=== PATIENT | female | born 1965 | race Caucasian/White ===

== ENCOUNTER 2017-08-09 21:15 | Emergency (ER) | payer MEDICARE, MEDICAID, SELFPAY ==
[2017-08-09 21:16] VITALS: BP 159/94; PULSE 82; RESP 20; TEMP 36.3; O2SAT 98; BMI 35.9
--- NOTE | 2017-08-09 21:27 | XR_ITS ---
XR chest 2V HISTORY: ITS.REASON: CHEST PAIN ORDERING PHYSICIAN: Tio Marcano MD PATIENT AGE: 51 years COMPARISON: 05/09/2017 FINDINGS: There is cardiomegaly with mild pulmonary venous congestion along with small bilateral pleural effusions consistent with mild CHF. There are atelectatic changes in the left lung base. Overlying monitoring artifact noted. No lobar consolidation or collapse. No acute bony anomalies. IMPRESSION: 1. CHF with small bilateral pleural effusions. 2. Mild left basilar atelectasis.
--- NOTE | 2017-08-09 21:56 | HMH.EDCP ---
ED Disposition Clinical Impression: Chest pain Qualifiers: Chest pain type: precordial pain Qualified Code(s): R07.2 - Precordial pain CHF (congestive heart failure) Qualifiers: Congestive heart failure type: unspecified Congestive heart failure chronicity: acute on chronic Qualified Code(s): I50.9 - Heart failure, unspecified Disposition: Home, Self-Care Condition on Discharge: Good Instructions: Heart Failure Additional Instructions: see card at 0900 Referrals: Chuck Morgan [Primary Care Provider] - - Critical Care Critical Care Time: No Attestation: On 08/09/17, the high probability of a clinically significant, sudden or life threatening deterioration of the following system(s) required my full and direct attention, intervention and personal management. The time I documented below is in addition to time spent performing reported procedures but includes the following listed in this critical care notation. Medical Decision Making - Medical Records Medical records reviewed: Yes: I reviewed the patient's medical records. Vital Signs: 08/09/17 21:16 08/09/17 22:41 Temperature 97.4 F L Temperature Source Oral Pulse Rate [Right Brachial] 82 79 Respiratory Rate 20 20 Blood Pressure [Right Arm] 159/94 158/66 Blood Pressure Mean [Right Arm] 115 96 Blood Pressure Source [Right Arm] Automatic Cuff Automatic Cuff Blood Pressure Position [Right Arm] Supine Supine 02 Sat by Pulse Oximetry 98 97 Oxygen Delivery Method Nasal Cannula Room Air - Lab Data Lab results reviewed: Yes: I reviewed the patient's lab results. Lab Results 08/09/17 21:55: WBC 9.0, RBC 4.36, Hgb 12.8, Hct 39.5, MCV 90.5, MCH 29.3, MCHC 32.4, RDW 13.2, Plt Count 305, MPV 8.1, Neut % (Auto) 61.5, Lymph % (Auto) 29.8, [place] % (Auto) 5.9, Eos % (Auto) 2.3, Baso % (Auto) 0.4, Neut # (Auto) 5.5, Lymph # (Auto) 2.7, [place] # (Auto) 0.5, Eos # (Auto) 0.2, Baso # (Auto) 0.0 08/09/17 21:55: Sodium 144, Potassium 3.5, Chloride 108 H, Carbon Dioxide 29, Anion Gap 10.5, BUN 9, Creatinine 0.88, Estimated Creat Clear 119, Estimated GFR 67, Est GFR ( Amer) 82, Glucose 141 H, Calcium 8.2 L, Total Bilirubin 0.2, AST 29, ALT 37, Alkaline Phosphatase 120 H, Total Creatine Kinase 74, CK-MB (CK-2) < 0.5, CK-MB (CK-2) Rel Index 0.7, Troponin I < 0.02, Total Protein 7.1, Albumin 2.9 L, Globulin 4.2 H, Albumin/Globulin Ratio 0.7 L 08/09/17 22:05: Urine Color Yellow, Urine Appearance Clear, Urine pH 6.0, Ur Specific [place] 1.015, Urine Protein Negative, Urine Glucose (UA) Negative, Urine Ketones Negative, Urine Blood Trace-i, Urine Nitrate Negative, Urine Bilirubin Negative, Urine Urobilinogen 0.2, Ur Leukocyte Esterase 1+ A, Urine RBC Occasional, Urine WBC 10-20, Ur Squamous Epith Cells 20-50, Ur Transition Epith Cell Occ, Urine Bacteria 2+ Result diagrams: 08/09/17 21:55 08/09/17 21:55 Orders (Tests/Meds): ED MEDICATIONS Discontinued Medications Generic Name Dose Route Start Last Admin Trade Name Freq PRN Reason Stop Dose Admin Aspirin 324 mg 08/09/17 21:35 08/09/17 21:45 Aspirin 81mg Chewable Tablet PO 08/09/17 21:36 324 mg ONCE ONE Administration ORDERS Category Date Time Status XR chest 2V Stat Exams 08/09/17 21:27 Taken BNP [B-Type Natriuretic Peptide] Stat Lab 08/09/17 21:55 Received Urine Culture Stat Micro 08/09/17 22:05 Received ECG Request by /Rosio Stat Y 08/09/17 21:27 Ordered - Radiology Data #1 Image Reviewed: Yes I reviewed the patient's radiology image Preliminary Findings: Abnormal (mild chf) - ECG Data Tracing #1 I reviewed this ECG and interpreted as documented below: Conduction abnormalities present: LBBB - Physician Consults Physician Consulted: aubree Reason -: Pt condition - Christophe Inquiry Pt receiving controlled substance: No Chest Pain HPI - General Chief Complaint: Chest Pain Stated Complaint: CHEST PAIN Time Seen by Provider: 08/09/17 21:57 Mode of Arrival: Amb
--- NOTE | 2017-08-09 22:00 | ED_ITS ---
ED Disposition Clinical Impression: Chest pain Qualifiers: Chest pain type: precordial pain Qualified Code(s): R07.2 - Precordial pain CHF (congestive heart failure) Qualifiers: Congestive heart failure type: unspecified Congestive heart failure chronicity : acute on chronic Qualified Code(s): I50.9 - Heart failure, unspecified Disposition: Home, Self-Care Condition on Discharge: Good Instructions: Heart Failure Additional Instructions: see card at 0900 Referrals: Chuck Morgan [Primary Care Provider] - - Critical Care Critical Care Time: No Attestation: On 08/09/17, the high probability of a clinically significant, sudden or life threatening deterioration of the following system(s) required my full and direct attention, intervention and personal management. The time I documented below is in addition to time spent performing reported procedures but includes the following listed in this critical care notation. Medical Decision Making - Medical Records Medical records reviewed: Yes: I reviewed the patient's medical records. Vital Signs: 08/09/17 21:16 08/09/17 22:41 Temperature 97.4 F L Temperature Source Oral Pulse Rate [Right Brachial] 82 79 Respiratory Rate 20 20 Blood Pressure [Right Arm] 159/94 158/66 Blood Pressure Mean [Right Arm] 115 96 Blood Pressure Source [Right Arm] Automatic Cuff Automatic Cuff Blood Pressure Position [Right Arm] Supine Supine 02 Sat by Pulse Oximetry 98 97 Oxygen Delivery Method Nasal Cannula Room Air - Lab Data Lab results reviewed: Yes: I reviewed the patient's lab results. Lab Results 08/09/17 21:55: WBC 9.0, RBC 4.36, Hgb 12.8, Hct 39.5, MCV 90.5, MCH 29.3, MCHC 32.4, RDW 13.2, Plt Count 305, MPV 8.1, Neut % (Auto) 61.5, Lymph % (Auto) 29.8 , [place] % (Auto) 5.9, Eos % (Auto) 2.3, Baso % (Auto) 0.4, Neut # (Auto) 5.5, Lymph # (Auto) 2.7, [place] # (Auto) 0.5, Eos # (Auto) 0.2, Baso # (Auto) 0.0 08/09/17 21:55: Sodium 144, Potassium 3.5, Chloride 108 H, Carbon Dioxide 29, Anion Gap 10.5, BUN 9, Creatinine 0.88, Estimated Creat Clear 119, Estimated GFR 67, Est GFR ( Amer) 82, Glucose 141 H, Calcium 8.2 L, Total Bilirubin 0.2, AST 29, ALT 37, Alkaline Phosphatase 120 H, Total Creatine Kinase 74, CK-MB (CK-2) < 0.5, CK-MB (CK-2) Rel Index 0.7, Troponin I < 0.02, Total Protein 7.1, Albumin 2.9 L, Globulin 4.2 H, Albumin/Globulin Ratio 0.7 L 08/09/17 22:05: Urine Color Yellow, Urine Appearance Clear, Urine pH 6.0, Ur Specific [place] 1.015, Urine Protein Negative, Urine Glucose (UA) Negative, Urine Ketones Negative, Urine Blood Trace-i, Urine Nitrate Negative, Urine Bilirubin Negative, Urine Urobilinogen 0.2, Ur Leukocyte Esterase 1+ A, Urine RBC Occasional, Urine WBC 10-20, Ur Squamous Epith Cells 20-50, Ur Transition Epith Cell Occ, Urine Bacteria 2+ Result diagrams: 08/09/17 21:55 08/09/17 21:55 Orders (Tests/Meds): ED MEDICATIONS Discontinued Medications Generic Name Dose Route Start Last Admin Trade Name Freq PRN Reason Stop Dose Admin Aspirin 324 mg 08/09/17 21:35 08/09/17 21:45 Aspirin 81mg Chewable Tablet PO 08/09/17 21:36 324 mg ONCE ONE Administration ORDERS Category Date Time Status XR chest 2V Stat Exams 08/09/17 21:27 Taken BNP [B-Type Natriuretic Peptide] Stat Lab 08/09/17 21:55 Received Urine Culture Stat Micro 08/09/17 22:05 Received ECG Request by /Rosio Stat
[2017-08-09 22:10] LABS: Basophils % 0.4 % (0.1-2.0); Eosinophils # 0.2 K/mm3 (0.0-0.4); Eosinophils % 2.3 % (0.1-12.0); Hematocrit 39.5 % (37.0-47.0); Hemoglobin 12.8 g/dL (12.2-16.2); Lymphocytes # 2.7 K/mm3 (0.7-4.5); Lymphocytes % 29.8 K/mm3 (10-50); Mean Corpuscular HGB Conc 32.4 g/dL (31.8-35.4); Mean Corpuscular Hemoglobin 29.3 pg (27.0-31.2); Mean Corpuscular Volume 90.5 fl (81-99); Mean Platelet Volume 8.1 fl (7.4-10.4); Monocytes # 0.5 K/mm3 (0.1-1.0); Monocytes % 5.9 % (1.7-9.3); Neutrophils # 5.5 K/mm3 (1.8-7.8); Neutrophils % 61.5 % (37.0-80.0); Platelet Count 305 K/mm3 (142-424); Red Blood Count 4.36 M/mm3 (4.20-5.40); Red Cell Distribution Width 13.2 % (11.5-17.5)
[2017-08-09 22:14] LABS: Microscopic, Urine URINE MICROSCOPIC (MICROSCOPIC)
[2017-08-09 22:16] LABS: Appearance,Urine CLEAR (Clear); Bilirubin,Urine Negative (Negative); Blood, Urine TRACE-I (Negative); Color,Urine YELLOW (Yellow); Glucose,Urine (UA) Negative (Negative); Ketones,Urine Negative (Negative); Leukocyte Esterase,Urine 1+ (Negative); Nitrate,Urine Negative (Negative); Protein,Urine Negative (Negative); Specific Gravity, Urine 1.015 (1.005-1.030); Urobilinogen,Urine 0.2 EU/dl (0.2)
[2017-08-09 22:30] LABS: Bacteria,Urine 2+ /lpf; RBC,Urine Occasional #/hpf (0-3); Squamous Epithelial Cell,Urine 20-50 #/hpf (0-5); Transitional Epi Cells,Urine OCC #/lpf (0-3)
[2017-08-09 22:37] LABS: Alanine Aminotransferase 37 U/L (12-78); Albumin Level 2.9 gm/dL (3.4-5.0); Albumin/Globulin Ratio 0.7 (1.1-1.8); Alkaline Phosphatase 120 U/L (46-116); Anion Gap 10.5 mEq/L (5-15); Aspartate Amino Transferase 29 U/L (15-37); Bilirubin,Total 0.2 mg/dL (0.2-1.0); Blood Urea Nitrogen 9 mg/dL (7-18); Calcium 8.2 mg/dL (8.5-10.1); Carbon Dioxide 29 mmol/L (21.0-32.0); Chloride 108 mmol/L (98-107); Creatine Kinase 74 U/L (26-192); Creatinine Clearance Estimated 119 mL/min (0-300); Creatinine,Serum 0.88 mg/dL (0.55-1.02); Estimated Glomerular Filt Rate 67 ml/min (>60); GFR (African American) 82 ML/MIN (>60); Globulin 4.2 gm/dl (1.3-3.2); Glucose 141 mg/dL (74-106); Potassium 3.5 mmoL/L (3.5-5.1); Sodium 144 mmol/L (136-145); Total Protein,Serum 7.1 gm/dL (6.4-8.2); Troponin I < 0.02 ng/ml (0.00-0.06)
[2017-08-09 22:41] VITALS: BP 158/66; PULSE 79; RESP 20; O2SAT 97
[2017-08-09 22:52] LABS: CKMB Relative Index 0.7 U/L (0-4.0); Creatine Kinase MB < 0.5 mg/ml (0.0-3.6)
[2017-08-09 23:12] VITALS: BP 152/62; PULSE 90; RESP 14; O2SAT 97
== END 2017-08-09 23:14 | disposition home or self-care (01) ==
PROVIDERS: Emergency Provider Emergency Medicine; PCP Pediatrics
DX: R07.2 Precordial pain (principal); R06.02 Shortness of breath; I50.9 Heart failure, unspecified; Z79.82 Long term (current) use of aspirin; Z87.891 Personal history of nicotine dependence; R82.90 Unspecified abnormal findings in urine
CPT/HCPCS: 71046; 80053; 81001; 82550; 82553; 83880; 84484; 85025; 87086; 93041; 99284

== ENCOUNTER → 2017-08-18 07:22 | Outpatient (CLI) | payer MEDICARE, MEDICAID, SELFPAY ==
--- NOTE | 2017-08-18 07:29 | CA_ITS ---
PROCEDURE: 2-D M-mode and color Doppler study INDICATIONS FOR THE TEST: Chest pain+ COPD+ Heart Murmur Tobacco Smokingex Palpitations+ Fatigue+ Syncope Edema+ Hypertension+Diabetes Mellitus Rheumatic Fever SOB+WHITLOCK Obesity+Hyperlipidemia Family History HD Additional History dizziness, hx of 20-25% ef, wearing life vest currently PATIENT INFORMATION HEIGHT: 66 WEIGHT: 225 GENDER: Female B/P: 151/98 2-D/M-MODE INTERPRETATION: 2-D MEASUREMENTS OBSERVED VALUES IN CMS Right Ventricular Dimension (RVDd) 1.3 Interventricular Septum (Thickness)(IVsd) 1.1 Left Ventricular Internal Dimensions(LVIDd) 6.7 Left Ventricular Posterior Wall (Thickness)(LVPWd) 1.2 Aortic Root 3.4 Aortic Cusp Separation 2.1 Left Atrial Dimensions (LAD) 4.4 2D 1. Left atrium is mildly enlarged, left ventricle is mildly dilated, there is mild concentric left ventricular hypertrophy present, visually estimated ejection fraction of 20%, left ventricle is globally hypokinetic, superimposed segmental wall motion abnormalities cannot be entirely excluded. 2. The right atrium and right ventricle are normal size and contractility. 3. The aortic valve is minimally thickened and fibrosed. 4. The mitral and tricuspid valve leaflets are minimally thickened. 5. The pulmonic valve is poorly visualized. 6. No significant pericardial effusion noted. DOPPLER INTERROGATION: Doppler interrogation of the aortic, mitral and tricuspid valvular presence of moderate mitral and tricuspid regurgitation, calculated right ventricular systolic pressure is 35 mmHg, diastolic parameters are inconclusive. CONCLUSION: 1. Mildly enlarged left atrium, dilated left ventricle, mild concentric left ventricular hypertrophy, visually estimated ejection fraction 30%, left ventricle is globally hypokinetic, superimposed segmental wall motion abnormalities cannot be entirely excluded. 2. Moderate mitral and tricuspid regurgitation, calculated right ventricular systolic pressure is 35 mmHg. 3. No significant pericardial effusion noted.
== END ==
PROVIDERS: PCP Pediatrics; Visit Provider Internal Medicine
DX: R00.0 Tachycardia, unspecified (principal); R07.9 Chest pain, unspecified
CPT/HCPCS: 93306

== ENCOUNTER 2017-08-21 12:35 | Emergency (ER) | payer MEDICARE, MEDICAID, SELFPAY ==
[2017-08-21 12:36] VITALS: BP 136/80; BP 146/71; PULSE 73; PULSE 80; RESP 16; RESP 18; TEMP 36.8; O2SAT 95; O2SAT 97; BMI 36.3
--- NOTE | 2017-08-21 12:43 | XR_ITS ---
XR chest 2V Ordering Physician: Sheba Jay MD Patient Age: 51 years: Female HISTORY: ITS.REASON: CP and c/o Wheezing Chest pain. Wheezing. COMPARISON : Previous chest film 05/09/2017 TECHNIQUE. PALateral chest. & Findings The patient has external device posteriorly overlying the back which is projected over the chest on the frontal projection today. The device was not removed & yields artifact which limits the study. However I see no definitive focal area of pneumonia or consolidation. Minor coarsening of central markings noted but considering technique and overlying densities this appears similar to previous study from April 2017, with nothing definitely acute otherwise.. . Lateral chest film shows no significant new features Heart is upper normal in size with kitty and stable satisfactory mediastinal structures unchanged. No pleural effusion nor pneumothorax. Again noted old right rib fractures IMPRESSION: ------- Chronic changes with nothing definitely acute Slight Limited CXR due to overlapping structures, but No focal consolidation or pneumonia. Central markings upper normal prominence could reflect mild additionalcentral airway inflammatory changes.
--- NOTE | 2017-08-21 12:43 | HMH.EDCP ---
ED Disposition Clinical Impression: Atypical chest pain Chest pain Qualifiers: Chest pain type: unspecified Qualified Code(s): R07.9 - Chest pain, unspecified CHF (congestive heart failure) Qualifiers: Congestive heart failure type: systolic Congestive heart failure chronicity: acute on chronic Qualified Code(s): I50.23 - Acute on chronic systolic (congestive) heart failure Disposition: Home, Self-Care Condition on Discharge: Fair Instructions: Heart Failure, DI for Atypical Chest Pain Additional Instructions: Keep appointment tomorrow with Dr. Luna to discuss implantation of AICD Referrals: Chuck Morgan [Primary Care Provider] - Time of Disposition: 15:20 - Critical Care Critical Care Time: No Attestation: On , the high probability of a clinically significant, sudden or life threatening deterioration of the following system(s) required my full and direct attention, intervention and personal management. The time I documented below is in addition to time spent performing reported procedures but includes the following listed in this critical care notation. Medical Decision Making - Medical Records Medical records reviewed: Yes: I reviewed the patient's medical records. Vital Signs: 08/21/17 12:36 08/21/17 13:08 08/21/17 13:30 Temperature 98.2 F Temperature Source Oral Pulse Rate [Left Brachial] 80 80 80 Respiratory Rate 16 16 16 Blood Pressure [Left Arm] 146/71 146/71 146/71 Blood Pressure Mean [Left Arm] 96 96 96 Blood Pressure Source [Left Arm] Automatic Cuff Automatic Cuff Blood Pressure Position [Left Arm] Sitting Sitting 02 Sat by Pulse Oximetry 95 95 95 Oxygen Delivery Method Room Air 08/21/17 14:00 08/21/17 14:30 Temperature Temperature Source Pulse Rate [Left Brachial] 77 65 Respiratory Rate 16 16 Blood Pressure [Left Arm] 150/85 124/75 Blood Pressure Mean [Left Arm] 106 91 Blood Pressure Source [Left Arm] Blood Pressure Position [Left Arm] 02 Sat by Pulse Oximetry 97 96 Oxygen Delivery Method - Lab Data Lab results reviewed: Yes: I reviewed the patient's lab results. Lab Results 08/21/17 12:35: WBC 6.1, RBC 4.92, Hgb 14.4, Hct 44.1, MCV 89.6, MCH 29.2, MCHC 32.6, RDW 13.4, Plt Count 296, MPV 7.8, Neut % (Auto) 47.7, Lymph % (Auto) 40.8, [place] % (Auto) 8.8, Eos % (Auto) 2.0, Baso % (Auto) 0.7, Neut # (Auto) 2.9, Lymph # (Auto) 2.5, [place] # (Auto) 0.5, Eos # (Auto) 0.1, Baso # (Auto) 0.0 08/21/17 12:35: Sodium 140, Potassium 4.0, Chloride 106, Carbon Dioxide 28, Anion Gap 10.0, BUN 9, Creatinine 0.92, Estimated Creat Clear 115, Estimated GFR 64, Est GFR ( Amer) 78, Glucose 115 H, Calcium 8.1 L, Total Bilirubin 0.5, AST 28, ALT 32, Alkaline Phosphatase 110, Total Creatine Kinase 57, CK-MB (CK-2) < 0.5, CK-MB (CK-2) Rel Index 0.9, Troponin I < 0.02, Total Protein 7.7, Albumin 3.2 L, Globulin 4.5 H, Albumin/Globulin Ratio 0.7 L Result diagrams: 08/21/17 12:35 08/21/17 12:35 Orders (Tests/Meds): ED MEDICATIONS Discontinued Medications Generic Name Dose Route Start Last Admin Trade Name Freq PRN Reason Stop Dose Admin Aspirin 324 mg 08/21/17 12:43 08/21/17 12:56 Aspirin 81mg Chewable Tablet PO 08/21/17 12:44 324 mg ONCE ONE Administration ORDERS Category Date Time Status XR chest 2V Stat Exams 08/21/17 12:43 Taken - Radiology Data #1 Image(s): Chest Image Reviewed: Yes I reviewed the patient's radiology image Cardiomegaly with mild upper lobe vascularity - ECG Data Tracing #1 NSR with LAD and ? lateral ischemia but no acute changes Arrhythmias present: other (NSR) Ischemic changes: poor r wave progression Chamber hypertrophy present: LVH - Christophe Inquiry Pt receiving controlled substance: No Christophe was queried for this patient: No Chest Pain HPI - General Chief Complaint: Chest Pain Stated Complaint: CP Time Seen by Provider: 08/21/17 12:44 Mode of Arrival: Ambulatory Source [employer]
[2017-08-21 12:57] LABS: Basophils % 0.7 % (0.1-2.0); Eosinophils # 0.1 K/mm3 (0.0-0.4); Hematocrit 44.1 % (37.0-47.0); Hemoglobin 14.4 g/dL (12.2-16.2); Lymphocytes # 2.5 K/mm3 (0.7-4.5); Lymphocytes % 40.8 K/mm3 (10-50); Mean Corpuscular HGB Conc 32.6 g/dL (31.8-35.4); Mean Corpuscular Hemoglobin 29.2 pg (27.0-31.2); Mean Corpuscular Volume 89.6 fl (81-99); Mean Platelet Volume 7.8 fl (7.4-10.4); Monocytes # 0.5 K/mm3 (0.1-1.0); Monocytes % 8.8 % (1.7-9.3); Neutrophils # 2.9 K/mm3 (1.8-7.8); Neutrophils % 47.7 % (37.0-80.0); Platelet Count 296 K/mm3 (142-424); Red Blood Count 4.92 M/mm3 (4.20-5.40); Red Cell Distribution Width 13.4 % (11.5-17.5); White Blood Count 6.1 K/mm3 (4.8-10.8)
[2017-08-21 13:08] VITALS: BP 146/71; PULSE 80; RESP 16; O2SAT 95
[2017-08-21 13:30] VITALS: BP 146/71; PULSE 80; RESP 16; O2SAT 95
--- NOTE | 2017-08-21 13:56 | PC.NURSE ---
UP TO BATHROOM. INDEPENDENTLY AMBULATED
[2017-08-21 14:00] VITALS: BP 150/85; PULSE 77; RESP 16; O2SAT 97
[2017-08-21 14:30] VITALS: BP 124/75; PULSE 65; RESP 16; O2SAT 96
[2017-08-21 14:57] LABS: Alanine Aminotransferase 32 U/L (12-78); Albumin Level 3.2 gm/dL (3.4-5.0); Albumin/Globulin Ratio 0.7 (1.1-1.8); Alkaline Phosphatase 110 U/L (46-116); Aspartate Amino Transferase 28 U/L (15-37); Bilirubin,Total 0.5 mg/dL (0.2-1.0); Blood Urea Nitrogen 9 mg/dL (7-18); CKMB Relative Index 0.9 U/L (0-4.0); Calcium 8.1 mg/dL (8.5-10.1); Carbon Dioxide 28 mmol/L (21.0-32.0); Chloride 106 mmol/L (98-107); Creatine Kinase 57 U/L (26-192); Creatine Kinase MB < 0.5 mg/ml (0.0-3.6); Creatinine Clearance Estimated 115 mL/min (0-300); Creatinine,Serum 0.92 mg/dL (0.55-1.02); Estimated Glomerular Filt Rate 64 ml/min (>60); GFR (African American) 78 ML/MIN (>60); Globulin 4.5 gm/dl (1.3-3.2); Glucose 115 mg/dL (74-106); Sodium 140 mmol/L (136-145); Total Protein,Serum 7.7 gm/dL (6.4-8.2); Troponin I < 0.02 ng/ml (0.00-0.06)
[2017-08-21 16:02] VITALS: BP 165/70; PULSE 80; O2SAT 98
== END 2017-08-21 16:02 | disposition home or self-care (01) ==
PROVIDERS: Emergency Provider General Practice; PCP Pediatrics
DX: R07.89 Other chest pain (principal); I25.10 Atherosclerotic heart disease of native coronary artery without angina pectoris; I11.0 Hypertensive heart disease with heart failure; I50.23 Acute on chronic systolic (congestive) heart failure; Z79.82 Long term (current) use of aspirin; Z79.891 Long term (current) use of opiate analgesic; Z79.899 Other long term (current) drug therapy
CPT/HCPCS: 71046; 80053; 82550; 82553; 84484; 85025; 93005; 93041; 99284

== ENCOUNTER 2017-09-08 08:34 | Day surgery (SDC) | payer MEDICARE, MEDICAID, SELFPAY ==
[2017-09-07 13:34] VITALS: BMI 37.1
[2017-09-08] VITALS (10 sets, daily range): BP systolic 104–138; BP diastolic 58–92; PULSE 58–70; RESP 16–20; TEMP 36.3–37.1; O2SAT 91–99
--- NOTE | 2017-09-08 | XR_ITS ---
XR pacemaker defibrillator CLINICAL INDICATION: Pacemaker insertion ORDERING PHYSICIAN: Chet Luna MD PATIENT AGE: 51 years COMPARISON: None FINDINGS: C-arm was utilized for pacemaker insertion. Fluoroscopy time: 1 minute and 31 seconds. Single image submitted shows the bipolar pacemaker present IMPRESSION: C-arm utilization for pacemaker insertion
--- NOTE | 2017-09-08 10:23 | HMH.ANESCL ---
[facility] Anesthesia Checklist - Patient Identification Patient Identification: Arm Band - Structural Data Admitted From: Home Planned Operative Procedure/s: pacemaker/aicd Consent for Planned Operative Procedure(s) Verified: Yes Verified Documents: Surgical Consent, History and Physical - NPO Status Verified Time NPO: 00:00 - Additional verifications Anesthesia Reactions: No - Airway Assessment C-Spine Mobility Assessed: Yes (mp2) TMJ Mobility Assessed: Yes Dentition: Good Dentition - Neurological Assessment Level of Consciousness: Awake, Alert - Anesthesia Plan Anesthesia Risk discussed: Yes Anesthesia Plan: Verified ASA Class: III Anesthesia Type: MAC [facility] Anesthesia HX I have reviewed the patient's past medical history: Yes Medical History: Reports:: Asthma, Congestive Heart Failure, Chronic Obstructive Pulmonary Disease (COPD), Coronary Artery Disease, Gastroesophageal Reflux Disease(GERD), Hyperlipidemia, Hypertension Denies:: Cancer, Diabetes Mellitus Type 1, Diabetes Mellitus Type 2, Internal Pacemaker, MRSA, Seizures Other Medical History: Denies: Blood Transfusion Reaction Other Surgeries: Yes: , Hysterectomy-Total, Other. No: Pacemaker Amputation: No Fractures: No Comment: vini *Family Hx:: Diabetes, Heart Attack, Hypertension
--- NOTE | 2017-09-08 13:08 | XR_ITS ---
XR chest portable HISTORY: ITS.REASON: AICD placement verification ORDERING PHYSICIAN: Chet Luna MD PATIENT AGE: 51 years COMPARISON: None available FINDINGS: Status post AICD placement from the left subclavian approach. No evidence of pneumothorax. Good position of the pacemaker. Minimal atelectatic or fibrotic changes present in the left lung base. Lungs otherwise clear. IMPRESSION: Status post AICD placement with no evidence of immediate complication
--- NOTE | 2017-10-06 07:55 | HMH.AICD ---
[facility] AICD - AICD Date: 09/08/17 Procedures:: 1. Pocket formation for AICD. 2. Placement of atrial sensing and pacing coil into the right atrial appendage. 3. Placement of a ventricular sensing pacing and shocking coil in the right ventricular apex. 4. Permanent AICD placement Indications for test:: Ischemic Cardiomyopathy with systolic congestive heart failure ejection fraction less than 35% Class III [place] [employer] congestive heart failure Informed consent:: Obtained prior to procedure. EBL:: Less than 10 ml. Technique:: 1% lidocaine with epinephrine used to anesthetize the left anterior aspect of chest. Scalpel was used to make the initial cutaneous incision wall electrocautery was used to dissect down into the fascia. The fascia was lifted off the pectoralis muscle and digitally manipulated creating a pocket for the defibrillator. The patient was then placed in Trendelenburg position and the subclavian vein was accessed via the Seldinger technique. A 7 Jordanian sheath was placed under fluoroscopic guidance into the subclavian vein. Following this, an additional wire was placed into the sheath. Now, with 2 wires inside the 7 Jordanian sheath, this sheath was removed, maintaining the 2 wires in the subclavian vein. This shift and dilator was then placed over 1 of the wires while keeping the other wire in place within the subclavian vein. The dilator was removed from the sheath. Using fluoroscopic guidance, the ventricular lead was placed into the right ventricular apex, screwed and secured into place. Electronic interrogation proved acceptable thresholds and voltage within the lead. Using 3-0 silk, the ventricular lead was then secured into place. Lead was secured to the fascia using the 3-0 silk. Following this, the sheath was peeled away. An additional 7 [place]ian fresh sheath and dilator was placed over the existing wire. Using fluoroscopic guidance, the atrial lead was then placed into the right atrial appendage and screwed and secured in place. Electrical interrogation demonstrated acceptable thresholds and voltage number. The atrial lead was then secured into place using 3-0 silk. 1 g of Ancef was used to flush the pocket. Following the defibrillator being secured to the fascia and in place, Monocryl was used to close subcutaneous layer christen were used to close the cutaneous layer. A pressure dressing was placed and the patient was transferred to the postop holding area in stable condition for postoperative care. Impression:: 1. Successful pocket formation for permanent defibrillator placement. 2. Successful placement of an atrial sensing pacing lead into the right atrial appendage. 3. Successful placement of a ventricular sensing, pacing, and shocking lead in the right ventricular apex. 4. Successful permanent defibrillator placement. Interrogation:: Generator model number [id number] serial number [id number] Atrial lead model number serial number [id number] model number [id number] Right Ventricular lead model number [id number] serial number [id number] RA: P wave 2.8-3.6mV Threshold .75 V Impedance 510 ohms pulse width .5 ms RVA: R wave 11-12mV Threshold .5 V Impedance 680 ohms pulse width .5ms Mode: DDD with base tracking of 60 maximum tracking 110 Therapies: VT-1: 150 Monitor VT-2: 180 ATP X3 @30, 36 J VF: 220 ATP W/C @30, 36 J Plan:: 1.Post-op wound care.
--- NOTE | 2017-10-06 07:59 | P.PCN_ITS ---
[facility] AICD - AICD Date: 09/08/17 Procedures:: 1. Pocket formation for AICD. 2. Placement of atrial sensing and pacing coil into the right atrial appendage. 3. Placement of a ventricular sensing pacing and shocking coil in the right ventricular apex. 4. Permanent AICD placement Indications for test:: Ischemic Cardiomyopathy with systolic congestive heart failure ejection fraction less than 35% Class III [place] [employer] congestive heart failure Informed consent:: Obtained prior to procedure. EBL:: Less than 10 ml. Technique:: 1% lidocaine with epinephrine used to anesthetize the left anterior aspect of chest. Scalpel was used to make the initial cutaneous incision wall electrocautery was used to dissect down into the fascia. The fascia was lifted off the pectoralis muscle and digitally manipulated creating a pocket for the defibrillator. The patient was then placed in Trendelenburg position and the subclavian vein was accessed via the Seldinger technique. A 7 Indonesian sheath was placed under fluoroscopic guidance into the subclavian vein. Following this , an additional wire was placed into the sheath. Now, with 2 wires inside the 7 Indonesian sheath, this sheath was removed, maintaining the 2 wires in the subclavian vein. This shift and dilator was then placed over 1 of the wires while keeping the other wire in place within the subclavian vein. The dilator was removed from the sheath. Using fluoroscopic guidance, the ventricular lead was placed into the right ventricular apex, screwed and secured into place. Electronic interrogation proved acceptable thresholds and voltage within the lead. Using 3-0 silk, the ventricular lead was then secured into place. Lead was secured to the fascia using the 3-0 silk. Following this, the sheath was peeled away. An additional 7 Indonesian fresh sheath and dilator was placed over the existing wire. Using fluoroscopic guidance, the atrial lead was then placed into the right atrial appendage and screwed and secured in place. Electrical interrogation demonstrated acceptable thresholds and voltage number. The atrial lead was then secured into place using 3-0 silk. 1 g of Ancef was used to flush the pocket. Following the defibrillator being secured to the fascia and in place, Monocryl was used to close subcutaneous layer christen were used to close the cutaneous layer. A pressure dressing was placed and the patient was transferred to the postop holding area in stable condition for postoperative care. Impression:: 1. Successful pocket formation for permanent defibrillator placement. 2. Successful placement of an atrial sensing pacing lead into the right atrial appendage. 3. Successful placement of a ventricular sensing, pacing, and shocking lead in the right ventricular apex. 4. Successful permanent defibrillator placement. Interrogation:: Generator model number [id number] serial number [id number] Atrial lead model number serial number [id number] model number [id number] Right Ventricular lead model number [id number] serial number [id number] RA: P wave 2.8-3.6mV Threshold .75 V Impedance 510 ohms pulse width .5 ms RVA: R wave 11-12mV Threshold .5 V Impedance 680 ohms pulse width .5ms Mode: DDD with base tracking of 60 maximum tracking 110 Therapies: VT-1: 150 Monitor VT-2: 180 ATP X3 @30, 36 J VF: 220 ATP W/C @30, 36 J Plan:: 1.Post-op wound care.
== END 2017-09-08 14:27 | disposition home or self-care (01) ==
PROVIDERS: PCP Pediatrics; Visit Provider Internal Medicine
PROC: 0JH608Z Insertion of Defibrillator Generator into Chest Subcutaneous Tissue and Fascia, Open Approach (ICD-10-PCS; CPT 33249; principal; 2017-09-08 10:00)
DX: Z45.02 Encounter for adjustment and management of automatic implantable cardiac defibrillator (principal); I50.20 Unspecified systolic (congestive) heart failure; I25.5 Ischemic cardiomyopathy
CPT/HCPCS: 33249; 71045; 94640; 96374; C1777; C1882; C1898

== ENCOUNTER 2018-01-26 11:28 | Day surgery (SDC) | payer MEDICARE, MEDICAID, SELFPAY ==
[2018-01-26 11:48] VITALS: BMI 37.1
[2018-01-26 12:06] VITALS: BP 100/51; PULSE 75; RESP 16; TEMP 36.2; O2SAT 95
[2018-01-26 12:07] LABS: Basophils % 0.5 % (0.1-2.0); Eosinophils # 0.2 K/mm3 (0.0-0.4); Eosinophils % 2.7 % (0.1-12.0); Hematocrit 41.4 % (37.0-47.0); Hemoglobin 12.9 g/dL (12.2-16.2); Lymphocytes # 2.4 K/mm3 (0.7-4.5); Lymphocytes % 31.2 K/mm3 (10-50); Mean Corpuscular HGB Conc 31.2 g/dL (31.8-35.4); Mean Corpuscular Hemoglobin 28.3 pg (27.0-31.2); Mean Corpuscular Volume 90.9 fl (81-99); Mean Platelet Volume 7.7 fl (7.4-10.4); Monocytes # 0.4 K/mm3 (0.1-1.0); Monocytes % 5.8 % (1.7-9.3); Neutrophils # 4.5 K/mm3 (1.8-7.8); Neutrophils % 59.8 % (37.0-80.0); Platelet Count 286 K/mm3 (142-424); Red Blood Count 4.56 M/mm3 (4.20-5.40); Red Cell Distribution Width 13.5 % (11.5-17.5); White Blood Count 7.5 K/mm3 (4.8-10.8)
[2018-01-26 12:15] LABS: Anion Gap 13.9 mEq/L (5-15); Blood Urea Nitrogen 13 mg/dL (7-18); Calcium 8.1 mg/dL (8.5-10.1); Carbon Dioxide 24 mmol/L (21.0-32.0); Chloride 107 mmol/L (98-107); Creatinine Clearance Estimated 116 mL/min (0-300); Creatinine,Serum 0.92 mg/dL (0.55-1.02); Estimated Glomerular Filt Rate 64 ml/min (>60); GFR (African American) 77 ML/MIN (>60); Glucose 163 mg/dL (74-106); Potassium 3.9 mmoL/L (3.5-5.1); Sodium 141 mmol/L (136-145)
--- NOTE | 2018-01-26 13:57 | HMH.ANESCL ---
[facility] Anesthesia Checklist - Patient Identification Patient Identification: Arm Band, Verbal (Name & ) - Structural Data Admitted From: Home Planned Operative Procedure/s: pacer pocket revision Consent for Planned Operative Procedure(s) Verified: Yes Verified Documents: Surgical Consent, History and Physical - NPO Status Verified Time NPO: 00:00 - Additional verifications Patient : No Anesthesia Reactions: No Hx Blood Transfusions: No Blood Transfusion Reaction: No Cephalosporin Allergy: No Previous Colonoscopy: No - Cardiovascular Assessment Heart Sounds: S1 & S2 Pulse Strength: Baseline Pulse Rhythm: Regular Peripheral Edema: No - Airway Assessment C-Spine Mobility Assessed: Yes TMJ Mobility Assessed: Yes Dentition: Good Dentition - Neurological Assessment Level of Consciousness: Awake, Alert, Appropriate Hx Seizures: No Numbness or tingling in extremities: No - Anesthesia Plan Anesthesia Risk discussed: Yes Anesthesia Plan: Verified ASA Class: III Anesthesia Type: MAC [facility] Anesthesia HX I have reviewed the patient's past medical history: Yes Medical History: Reports:: Asthma, Congestive Heart Failure, Chronic Obstructive Pulmonary Disease (COPD), Coronary Artery Disease, Gastroesophageal Reflux Disease(GERD), Hyperlipidemia, Hypertension, Internal Pacemaker Denies:: Cancer, Diabetes Mellitus Type 1, Diabetes Mellitus Type 2, MRSA, Seizures Other Medical History: Denies: Blood Transfusion Reaction Other Surgeries: Yes: , Hysterectomy-Total, Pacemaker, Other Amputation: No Fractures: No *Family Hx:: Diabetes, Heart Attack, Hypertension
[2018-01-26 15:13] VITALS: BP 99/46; PULSE 66; RESP 20; TEMP 36.2; O2SAT 94
[2018-01-26 15:28] VITALS: BP 101/70; PULSE 65; RESP 18; TEMP 36.2; O2SAT 96
[2018-01-26 15:43] VITALS: BP 103/91; PULSE 73; RESP 18; TEMP 36.2; O2SAT 97
--- NOTE | 2018-08-21 10:24 | HMH.PCTREV ---
Pocket Revision Date:: 01/26/18 Procedures:: r Informed consent:: Obtained prior to procedure. Complications:: None EBL:: Less than 10 ml. Technique:: 1% Lidocaine with epinephrine used to anesthetize the left anterior aspect of the chest.Scalpel was used to make the initial cutaneous incision and then used to dissect down to the pacemaker generator. The generator was removed from the existing pocket. Digital manipulation was required along with intermittent usage of scalpel in order to revise the pocket. Plan:: 1.Post-op wound care.
== END 2018-01-26 15:43 | disposition home or self-care (01) ==
LOC: OR 11:30
PROVIDERS: PCP Pediatrics; Visit Provider Internal Medicine
DX: T82.121A Displacement of cardiac pulse generator (battery), initial encounter (principal); Z45.02 Encounter for adjustment and management of automatic implantable cardiac defibrillator; I50.23 Acute on chronic systolic (congestive) heart failure; I11.0 Hypertensive heart disease with heart failure
CPT/HCPCS: 33215; 80048; 85025; 96374

== ENCOUNTER → 2018-11-05 11:57 | Outpatient (CLI) | payer MEDICARE, MEDICAID, SELFPAY ==
--- NOTE | 2018-11-05 12:02 | CA_ITS ---
PROCEDURE: 2-D M-mode and color Doppler study INDICATIONS FOR THE TEST: Chest pain COPDX Heart Murmur Tobacco Smoking Palpitations Fatigue Syncope Edema HypertensionXXDiabetes Mellitus Rheumatic Fever SOBXDOE ObesityXHyperlipidemia X Family History HD Additional History CM,AICD EF 08/18/17 30% ARRHYTHMIA PATIENT INFORMATION HEIGHT: 66 WEIGHT:242 GENDER: Female B/P:114/66 2-D/M-MODE INTERPRETATION: 2-D MEASUREMENTS OBSERVED VALUES IN CMS Right Ventricular Dimension (RVDd) 1.3 Interventricular Septum (Thickness)(IVsd) 1.1 Left Ventricular Internal Dimensions(LVIDd) 6.8 Left Ventricular Posterior Wall (Thickness)(LVPWd) 1.2 Aortic Root 3.1 Aortic Cusp Separation 1.8 Left Atrial Dimensions (LAD) 3.4 2D 1. Left atrium is mildly enlarged, left ventricle is mildly dilated, there is mild concentric left ventricular hypertrophy, severely reduced left ventricular systolic function, visually estimated ejection fraction is 25%, left ventricle is globally hypokinetic, there is abnormal septal motion. 2. The right atrium and right ventricle are normal size and contractility, there is an AICD lead seen in the right ventricle. 3. The aortic valve is thickened and calcified leaflet continue to display mobility. 4. The mitral and tricuspid valve leaflets are minimally thickened 5. The pulmonic valve is poorly visualized. 6. No significant pericardial effusion noted. DOPPLER INTERROGATION: Doppler interrogation of the aortic, mitral and tricuspid valvular presence of mild mitral and tricuspid regurgitation, tricuspid regurgitation jet velocity is inadequate for calculation of the right ventricular systolic pressure, Doppler evidence of impaired relaxation seen. CONCLUSION: 1. Mildly enlarged left atrium, mildly dilated left ventricle, mild concentric left ventricular hypertrophy, severely reduced left ventricular systolic function, visually estimated ejection fraction 45%, left ventricle is globally hypokinetic, there is abnormal septal motion. Doppler evidence of impaired LV relaxation seen. 2. Mild mitral and tricuspid regurgitation 3. No significant pericardial effusion noted.
== END ==
PROVIDERS: PCP Pediatrics; Visit Provider Internal Medicine
DX: I11.9 Hypertensive heart disease without heart failure (principal); I42.9 Cardiomyopathy, unspecified; I50.9 Heart failure, unspecified; R06.00 Dyspnea, unspecified
CPT/HCPCS: 93306

== ENCOUNTER → 2019-01-07 12:04 | Outpatient (CLI) | payer MEDICARE, MEDICAID, SELFPAY ==
[2019-01-07 13:15] LABS: Anion Gap 14.1 mEq/L (5-15); Blood Urea Nitrogen 14 mg/dL (7-18); Calcium 8.5 mg/dL (8.5-10.1); Carbon Dioxide 29 mmol/L (21.0-32.0); Chloride 104 mmol/L (98-107); Creatinine,Serum 0.94 mg/dL (0.55-1.02); Estimated Glomerular Filt Rate 62 ml/min (>60); GFR (African American) 75 ML/MIN (>60); Glucose 157 mg/dL (74-106); Potassium 4.1 mmoL/L (3.5-5.1); Sodium 143 mmol/L (136-145)
== END ==
PROVIDERS: Visit Provider Internal Medicine
DX: R06.02 Shortness of breath (principal); R06.00 Dyspnea, unspecified; R06.01 Orthopnea
CPT/HCPCS: 36415; 80048; 83880

== ENCOUNTER → 2020-01-07 13:07 | Outpatient (CLI) | payer MEDICARE, MEDICAID, SELFPAY ==
--- NOTE | 2020-01-07 13:14 | CA_ITS ---
APPROVED REPORT EXAM: Comprehensive 2D, Doppler, and color-flow Echocardiogram Hydrology Professor: Caity Haley RVT Ht: 5 ft 6 in Wt: 235lbs BSA: 2.14 BP: 101/59 mmHg Indications: CHF,HTN,HLD,CM,CAD,AICD 2D Dimensions LVOT 2.05 cm (M/F) 1.5-2.5 M-Mode Dimensions LVDd 5.84 cm (3.5-5.7) LVDs 4.43 cm (3.5-5.7) IVSd 1.09 cm (0.6-1.1) PWd 0.60 cm (0.6-1.1) EF (Teich) 47.30% FS 24.10% EDV (Teich) 169.20 mL ESV (Teich) 89.10 mL LV Diastology E/A Ratio 0.64 Mitral Valve MV A Velocity 76.00 (40-130 cm/s) Left Ventricle Left atrium is mildly enlarged, left ventricle is normal size, mild concentric left ventricular hypertrophy, reduced left ventricular systolic function, visually estimated ejection fraction 35%, there is moderate hypokinesis involving the mid to distal septum anterior and apical wall. Grade 1 diastolic dysfunction seen without tissue Doppler evidence of raise left atrial pressure. Right Ventricle Right atrium and right ventricular normal size and contractility, there is an AICD lead seen in the right ventricle. Aortic Valve Aortic valve is minimally thickened and fibrosed, there is no aortic stenosis or aortic insufficiency. Mitral Valve Mitral valve is grossly normal, there is mild mitral regurgitation. Tricuspid Valve Tricuspid valve is grossly normal, there is mild tricuspid regurgitation. Tricuspid regurgitation jet velocity is inadequate for calculation of the right ventricular systolic pressure. Pulmonic Valve Pulmonic valve is poorly visualized. Great Vessels Aortic root is normal size. Pericardium No significant pericardial effusion noted. Conclusion 1. Mildly enlarged left atrium, normal left ventricular size, mild concentric left ventricular hypertrophy, visually estimated ejection fraction 35% with segmental wall motion abnormality described above, grade 1 diastolic dysfunction seen without tissue Doppler evidence of raise left atrial pressure. 2. Mild mitral and tricuspid regurgitation. 3. No significant pericardial effusion noted. Electronically signed by : Cristopher Lopez, 01/07/2020 22:38:02
== END ==
PROVIDERS: PCP Pediatrics; Visit Provider Internal Medicine
DX: I25.10 Atherosclerotic heart disease of native coronary artery without angina pectoris (principal)
CPT/HCPCS: 93306

== ENCOUNTER 2020-06-16 16:05 | Emergency (ER) | payer MEDICARE, MEDICAID, SELFPAY ==
[2020-06-16 16:06] VITALS: BP 152/86; PULSE 88; RESP 16; TEMP 37.1; O2SAT 96; BMI 38.7
--- NOTE | 2020-06-16 17:20 | HMH.EDUTC ---
[facility] Disposition Clinical Impression: Bronchitis Sinusitis Qualifiers: Sinusitis location: unspecified location Chronicity: acute Recurrence: non-recurrent Qualified Code(s): J01.90 - Acute sinusitis, unspecified Disposition: Home, Self-Care Condition on Discharge: Good Instructions: Sinusitis, DI for Acute Bronchitis Additional Instructions: Drink plenty of fluids. Take tylenol for pain or fever. Take the medications as directed. Follow up with your regular doctor. GO TO THE ER FOR ANY WORSENING SYMPTOMS Prescriptions: predniSONE [Prednisone 10mg Tab Dose-Pack] 10 mg PO UD DOSE PK 6 Days #1 pack Transmission Status: Received by [facility]/pharmacy #[id number] Azithromycin [Z-Jose 250mg Tab*] 250 mg PO UD DOSE PK #6 tab Transmission Status: Received by [facility]/pharmacy #[id number] Referrals: Chuck Morgan [Primary Care Provider] - Time of Disposition: 17:26 Medical Decision Making - Medical Records Medical records reviewed: No: I reviewed the patient's medical records. - Christophe Inquiry Pt receiving controlled substance: No Vital Signs: 06/16/20 16:06 06/16/20 17:50 Temperature 98.7 F 98.4 F Temperature Source Oral Oral Pulse Rate 70 Pulse Rate [Right] 88 Respiratory Rate 16 16 Blood Pressure 140/70 Blood Pressure [Right Arm] 152/86 H Blood Pressure Mean [Right Arm] 108 Blood Pressure Source Automatic Cuff Blood Pressure Source [Right Arm] Automatic Cuff Blood Pressure Position Sitting Blood Pressure Position [Right Arm] Sitting 02 Sat by Pulse Oximetry 96 Oxygen Delivery Method Room Air Room Air [facility] HPI - General Stated complaint: sINSUS,CONGESTION,THROAT Time Seen by Provider: 06/16/20 16:10 Mode of Arrival: Ambulatory Source of Information: Patient Description of Symptoms (Recalled from Triage Doc. by RN): cough, runny nose for the past couple of days. Denies any fever HEENT Symptoms (Recalled from RN notes): Yes (cough, runny nose) Resp Symptoms (Recalled from RN notes): No Skin Symptoms (Recalled from RN notes): No MS Symptoms (Recalled from RN notes): No Functional Status (Recalled from RN notes): na - History of Present Illness Provider Complaint: She states that for the past 3 days she has had a cough and sinus congestion. She denies any fever or chills. She denies any exposure to covid-19. She refuses a covid test today. - Related Data Home Medications Medication Instructions Recorded Confirmed albuterol sulfate 2.5 mg INHALATION Q20M 07/31/17 04/27/20 aspirin 81 mg tablet,delayed 81 mg PO QDAY 07/31/17 04/27/20 release sertraline 50 mg tablet 50 mg PO QDAY 07/31/17 04/27/20 oxycodone-acetaminophen 10 mg-325 1 tab PO QID tab 03/13/18 04/27/20 mg tablet Previous Rx's Medication Instructions Recorded spironolactone 50 mg tablet 50 mg PO BID #60 tab 04/25/18 torsemide 100 mg tablet 50 mg PO DAILY #45 tab 07/12/19 carvedilol 25 mg tablet 37.5 mg PO BID #270 tab 09/02/19 sacubitril 49 mg-valsartan 51 mg 1 tab PO BID #60 tab 02/24/20 tablet atorvastatin 20 mg tablet 20 mg PO DAILY #30 tab 06/01/20 Azithromycin [Z-Jose 250mg Tab*] 250 mg PO UD DOSE PK #6 tab 06/16/20 predniSONE [Prednisone 10mg Tab 10 mg PO UD DOSE PK 6 Days #1 pack 06/16/20 Dose-Pack] Allergies Allergy/AdvReac Type Severity Reaction Status Date / Time No Known Allergies Allergy Verified 06/16/20 17:03 - Worker's Comp Is this a Worker's Comp case?: No H History - Hepatitis A Screen Drug use history?: No High risk sexual behaviors?: No History of sexually transmitted infection?: No Currently employed?: No Childcare worker?: No Do you have indoor plumbing?: Yes Do you have electricity?: Yes Attestation statement:: This patient has been screened for Hepatitis A risk factors. I have reviewed the patient's past medical history: Yes Medical History: Reports:: Asthma, Cardiomyopathy, Congestive Heart Failure, Chronic Obstructive Pulmonary Disease (COPD), Coronary A
[2020-06-16 17:50] VITALS: BP 140/70; PULSE 70; RESP 16; TEMP 36.9; O2SAT 98
== END 2020-06-16 17:50 | disposition home or self-care (01) ==
PROVIDERS: Emergency Provider Nurse Practitioner Family; PCP Pediatrics
DX: J20.9 Acute bronchitis, unspecified (principal); J01.90 Acute sinusitis, unspecified; J44.0 Chronic obstructive pulmonary disease with (acute) lower respiratory infection; I25.10 Atherosclerotic heart disease of native coronary artery without angina pectoris; K21.9 Gastro-esophageal reflux disease without esophagitis; I10 Essential (primary) hypertension; E78.5 Hyperlipidemia, unspecified; Z79.899 Other long term (current) drug therapy
CPT/HCPCS: G0463; 99201

== ENCOUNTER 2020-08-15 16:48 | Emergency (ER) | payer MEDICARE, MEDICAID, SELFPAY ==
[2020-08-15 17:10] VITALS: BP 129/77; PULSE 95; RESP 20; TEMP 36.8; O2SAT 95; BMI 38.7
[2020-08-15 17:20] LABS: Apearance,Urine Slightly Cloudy (Clear); Color,Urine Dark Yellow (Yellow); Specific Gravity, Urine 1.015 (1.005-1.030)
[2020-08-15 17:21] LABS: Bilirubin,Urine Negative (Negative); Blood, Urine 2+ (Negative); Glucose,Urine (UA) Negative (Negative); Ketones,Urine Negative (Negative); Protein,Urine 1+ (Negative); UTC Leukocyte Esterase,Urine 2+ (Negative); UTC Nitrate,Urine Negative (Negative); Urobilinogen,Urine 1 EU/dl (0.2)
--- NOTE | 2020-08-15 17:48 | HMH.EDUTC ---
[facility] [place] Clinical Impression: UTI (urinary tract infection) Qualifiers: Urinary tract infection type: site unspecified Hematuria presence: with hematuria Qualified Code(s): N39.0 - Urinary tract infection, site not specified Disposition: Home, Self-Care Condition on Discharge: Good Instructions: Urinary Tract Infection, DI for Urinary Tract Infection (UTI) Additional Instructions: Drink plenty of fluids. Take tylenol or ibuprofen for pain or fever. Take the medications as directed. Follow up with your regular doctor. GO TO THE ER FOR ANY WORSENING SYMPTOMS The pyridium will make your urine turn orange, this is an expected side effect. It will stain your clothes if it comes into contact with them. Prescriptions: Sulfamethoxazole/Trimethoprim [Bactrim DS tablet] 1 each PO BID 7 Days #14 tab Transmission Status: Received by [email or web address] #[id number] Phenazopyridine HCl [Pyridium 200mg Tablet] 200 pow PO TID #6 tab Transmission Status: Received by [email or web address] #[id number] Referrals: Chuck Morgan [Primary Care Provider] - Time of Disposition: 17:51 Medical Decision Making - Medical Records Medical records reviewed: No: I reviewed the patient's medical records. - Christophe Inquiry Pt receiving controlled substance: No Vital Signs: 08/15/20 17:10 08/15/20 17:59 Temperature 98.3 F 98.3 F Temperature Source Oral Pulse Rate 95 H Pulse Rate [Right Brachial] 95 H Respiratory Rate 20 20 Blood Pressure 129/77 Blood Pressure [Right Arm] 129/77 Blood Pressure Mean [Right Arm] 94 Blood Pressure Source [Right Arm] Automatic Cuff Blood Pressure Position [Right Arm] Sitting 02 Sat by Pulse Oximetry 95 Oxygen Delivery Method Room Air - Lab Data Lab Results 08/15/20 17:02: Urine Color Dark yellow, Urine Appearance Slightly cloudy, Urine pH 7.0, Ur Specific [place] 1.015, Urine Protein 1+, Urine Glucose (UA) Negative, Urine Ketones Negative, Urine Blood 2+, Urine Nitrate Negative, Urine Bilirubin Negative, Urine Urobilinogen 1, Ur Leukocyte Esterase 2+ A Orders (Tests/Meds): ED MEDICATIONS Discontinued Medications Generic Name Dose Route Start Last Admin Trade Name Freq PRN Reason Stop Dose Admin Ceftriaxone Sodium 1 gm 08/15/20 17:49 08/15/20 17:55 Ceftriaxone 1gm Vial IM 08/15/20 17:50 1 gm ONCE ONE Administration Protocol Lidocaine HCl 0 ml 08/15/20 17:49 08/15/20 17:55 Lidocaine 1% 5ml Pf Vial IM 08/15/20 17:50 2.1 ml ONCE ONE Administration ORDERS Category Date Time Status Urine Culture Routine Micro 08/15/20 17:05 Received [facility] [place] - General Stated complaint: Possible UTI Time Seen by Provider: 08/15/20 17:48 Mode of Arrival: Ambulatory Source of Information: Patient Limitations: No Limitations Description of Symptoms (Recalled from Triage Doc. by RN): PATIENT C/O PRESSURE AND HESITANCY WHEN URINATION X 2 DAYS HEENT Symptoms (Recalled from RN notes): No Resp Symptoms (Recalled from RN notes): No Skin Symptoms (Recalled from RN notes): No MS Symptoms (Recalled from RN notes): No Functional Status (Recalled from RN notes): wnl - History of Present Illness Provider Complaint: She states that for the past 3 days she has had low back pain, dysuria, and urinary frequency. - Related Data Home Medications Medication Instructions Recorded Confirmed albuterol sulfate 2.5 mg INHALATION Q20M 07/31/17 04/27/20 aspirin 81 mg tablet,delayed 81 mg PO QDAY 07/31/17 04/27/20 release sertraline 50 mg tablet 50 mg PO QDAY 07/31/17 04/27/20 oxycodone-acetaminophen 10 mg-325 1 tab PO QID tab 03/13/18 04/27/20 mg tablet Previous Rx's Medication Instructions Recorded spironolactone 50 mg tablet 50 mg PO BID #60 tab 04/25/18 torsemide 100 mg tablet 50 mg PO DAILY #45 tab 07/12/19 carvedilol 25 mg tablet 37.5 mg PO BID #270 tab 09/02/19 sacubitril 49 mg-valsartan 51 mg 1 tab PO BID #60 tab 02/24/20 tablet atorvasta
[2020-08-15 17:59] VITALS: BP 129/77; PULSE 95; RESP 20; TEMP 36.8; O2SAT 95
== END 2020-08-15 18:09 | disposition home or self-care (01) ==
PROVIDERS: Emergency Provider Nurse Practitioner Family; PCP Pediatrics
DX: N30.00 Acute cystitis without hematuria (principal); I10 Essential (primary) hypertension; J44.9 Chronic obstructive pulmonary disease, unspecified; I25.10 Atherosclerotic heart disease of native coronary artery without angina pectoris; E78.5 Hyperlipidemia, unspecified; Z79.899 Other long term (current) drug therapy
CPT/HCPCS: G0463; 81003; 87086; 96372; 99202

== ENCOUNTER 2021-08-03 14:10 | Emergency (ER) | payer MEDICARE, MEDICAID, SELFPAY ==
[2021-08-03 14:11] VITALS: BP 140/81; PULSE 82; RESP 16; TEMP 36.9; O2SAT 98; BMI 38.7
--- NOTE | 2021-08-03 14:36 | XR_ITS ---
FINAL REPORT CLINICAL HISTORY: fall with lower leg pain FINDINGS: LEFT FOOT Three views were obtained. There is no acute fracture or dislocation. There is a small plantar spur. The visualized joint spaces are preserved. There is no acute soft tissue abnormality. IMPRESSION: No acute bony abnormality. Reviewed, Interpreted and Dictated by Ric Aragon MD Transcribed by Tariq Alejandro Authenticated by Ric Aragon MD on 08/03/2021 03:26:18 PM [facility]
--- NOTE | 2021-08-03 14:36 | XR_ITS ---
FINAL REPORT CLINICAL HISTORY: fall with lower leg pain FINDINGS: LEFT ANKLE 3 views were obtained. There is an oblique nondisplaced fracture of the lateral malleolus. The visualized joint spaces are preserved. There is soft tissue swelling over the lateral malleolus. IMPRESSION: Oblique nondisplaced fracture of the lateral malleolus. Reviewed, Interpreted and Dictated by Ric Aragon MD Transcribed by Tariq Alejandro Authenticated by Ric Aragon MD on 08/03/2021 03:26:16 PM [facility]
--- NOTE | 2021-08-03 14:36 | XR_ITS ---
FINAL REPORT CLINICAL HISTORY: fall with left lower leg pain FINDINGS: LEFT TIBIA FIBULA 2 views were obtained. There is an oblique fracture of the lateral malleolus. The visualized joint spaces are preserved. There is no acute soft tissue abnormality. IMPRESSION: Oblique fracture of the lateral malleolus. Reviewed, Interpreted and Dictated by Ric Aragon MD Transcribed by Tariq Alejandro Authenticated by Ric Aragon MD on 08/03/2021 03:26:[address] [facility]
[2021-08-03 16:00] VITALS: BP 140/81; PULSE 82; RESP 16; TEMP 36.9; O2SAT 98; BMI 38.5
--- NOTE | 2021-08-03 16:36 | HMH.EDUTC ---
[facility] [place] Disposition Clinical Impression: Lateral malleolar fracture Qualifiers: Encounter type: initial encounter Fracture type: closed Fracture alignment: nondisplaced Laterality: left Qualified Code(s): S82.65XA - Nondisplaced fracture of lateral malleolus of left fibula, initial encounter for closed fracture Disposition: Home, Self-Care Condition on Discharge: Good Instructions: How to Use Crutches, Ankle Fracture, DI for Ankle Fracture, How to Use a Walking Boot Additional Instructions: *RICE, Rest the extremity, Ice 15-20 minutes 3-4 times daily, Compress- wear the nasrin wrap as discussed as much as possible to help reduce swelling and pain, Elevate the extremity when at rest *Walking boot is for support and help control swelling, . Be sure that is not to tight but not to loose either Use crutches to ambulate *Elevate when resting *Ibuprofen 600-800mg every 6-8 hours as needed for pain an inflammation. If need something more can take Tylenol in between doses of Ibuprofen to help Immediately follow up with your family doctor for new or worsening of symptoms, or no noticeable improvement over the next 3-5 days Call Orthopedics to make appointment on Monday with Dr Franco Return if needed Take prescribed pain medication as it was prescribed Referrals: Chuck Morgan [Primary Care Provider] - As needed Marques Franco JR, MD [Physician] - (Call office tomorrow for appointment on Monday) Time of Disposition: 16:48 Medical Decision Making - Christophe Inquiry Pt receiving controlled substance: No Christophe was queried for this patient: No Vital Signs: 08/03/21 14:11 08/03/21 16:00 08/03/21 16:59 Temperature 98.4 F 98.4 F 98.4 F Temperature Source Oral Oral Pulse Rate 82 Pulse Rate [Left Radial] 82 82 Respiratory Rate 16 16 16 Blood Pressure 140/81 Blood Pressure [Left Arm] 140/81 140/81 Blood Pressure Mean [Left Arm] 100 100 Blood Pressure Source [Left Arm] Automatic Cuff Automatic Cuff Blood Pressure Position [Left Arm] Sitting Sitting 02 Sat by Pulse Oximetry 98 98 Oxygen Delivery Method Room Air Room Air Orders (Tests/Meds): ED MEDICATIONS Discontinued Medications Generic Name Dose Route Start Last Admin Trade Name Freq PRN Reason Stop Dose Admin Ibuprofen 600 mg 08/03/21 16:46 08/03/21 16:57 Ibuprofen 600 Mg Tablet PO 08/03/21 16:47 600 mg ONCE ONE Administration - Radiology Data #1 Image(s): Foot/Toes Image Reviewed: Yes I have reviewed radiologist's interpretation IMPRESSION: No acute bony abnormality. #2 Image(s): Ankle Image Reviewed: Yes I have reviewed radiologist's interpretation IMPRESSION: Oblique nondisplaced fracture of the lateral malleolus. - Physician Consults Physician Consulted: Dr Franco Time: 16:38 Reason -: Orthopedic Eval/Care Comment/Response: Spoke with Dr Franco advised to place in walking boot crutches and follow up in clinic on Monday [facility] [place] HPI - General Stated complaint: AO fall 08/03 lt ankle pain Time Seen by Provider: 08/03/21 16:36 Mode of Arrival: Ambulatory Source of Information: Patient Limitations: No Limitations Description of Symptoms (Recalled from Triage Doc. by RN): PATIENT C/O INJURY TO LLE/ANKLE AFTER TRIPPING AND FALLING AT A FURNITURE STORE HEENT Symptoms (Recalled from RN notes): No Resp Symptoms (Recalled from RN notes): No Skin Symptoms (Recalled from RN notes): No MS Symptoms (Recalled from RN notes): Yes Functional Status (Recalled from RN notes): WNL - History of Present Illness Provider Complaint: Patient states that she was at [employer] when she tripped over some straps laying in the floor and twisted her left ankle State that she felt something pop States that she immediately started having pain and was unable to put weight on it so she came in to get it checked out denies any other injury - Related Data Home Medications Medication Instructions Recorded Confirmed albuterol sulfate 2
[2021-08-03 16:59] VITALS: BP 140/81; PULSE 82; RESP 16; TEMP 36.9; O2SAT 98
== END 2021-08-03 17:00 | disposition home or self-care (01) ==
LOC: ER 14:27 → UTC 14:27
PROVIDERS: Emergency Provider Nurse Practitioner; PCP Pediatrics
DX: S82.65XA Nondisplaced fracture of lateral malleolus of left fibula, initial encounter for closed fracture (principal); W01.0XXA Fall on same level from slipping, tripping and stumbling without subsequent striking against object, initial encounter; Y92.29 Other specified public building as the place of occurrence of the external cause; K21.9 Gastro-esophageal reflux disease without esophagitis; I25.10 Atherosclerotic heart disease of native coronary artery without angina pectoris; I10 Essential (primary) hypertension; E78.5 Hyperlipidemia, unspecified
CPT/HCPCS: 29515; G0463; 73590; 73610; 73630; 99202

== ENCOUNTER → 2021-08-06 12:38 | Outpatient (CLI) | payer MEDICARE, MEDICAID, SELFPAY ==
--- NOTE | 2021-08-06 12:40 | CA_ITS ---
FINAL REPORT CLINICAL HISTORY: left calf pain; swelling; lt ankle fx -3 days ago FINDINGS: DUPLEX VENOUS SONOGRAPHY OF THE LEFT LOWER EXTREMITY Multiple transverse and longitudinal scans were performed of the femoropopliteal deep venous system, with augmentation and compression maneuvers. HISTORY: Left calf pain. Left ankle fracture 3 days ago. FINDINGS: Normal phasic flow was noted in the visualized deep venous system. No intraluminal increased echogenicity is noted to suggest thrombus. There is normal compression and augmentation of the venous structures. No abnormal venous collaterals are seen. IMPRESSION: No evidence of deep venous thrombosis of the left lower extremity. Reviewed, Interpreted and Dictated by Sunni Escobedo MD Transcribed by Claudia Payne Authenticated by Sunni Escobedo MD on 08/06/2021 02:17:07 PM [facility]
== END ==
PROVIDERS: PCP Pediatrics; Visit Provider Orthopaedic Surgery
DX: M79.662 Pain in left lower leg (principal)
CPT/HCPCS: 93971

== ENCOUNTER → 2021-08-13 13:33 | Outpatient (CLI) | payer MEDICARE, MEDICAID, SELFPAY ==
--- NOTE | 2021-08-13 13:42 | XR_ITS ---
PROCEDURE INFORMATION: Exam: XR Left Ankle Exam date and time: 08/13/2021 1:42 PM Age: 55 years old Clinical indication: Condition or disease; Other: Fracture; Additional info: Follow up lt ankle FX TECHNIQUE: Imaging protocol: XR Left ankle. Views: 3 or more views. Total images: 3 COMPARISON: CR XR ANKLE LT MIN 3V 08/03/2021 2:38 PM FINDINGS: Bones/joints: The previously questioned oblique nondisplaced fracture of the lateral malleolus is again noted, with mild lateral cortical irregularity. There is mild local trabecular sclerosis and there is no interval progression of bony resorption along the fracture interface, which is atypical for a recent fracture and suggests that this might represent changes of remote prior minimally displaced to nondisplaced fracture, correlate clinically. No new fractures. Minimal plantar calcaneal spurring and minimal spurring at the Achilles attachment. Soft tissues: Nonspecific mild soft tissue swelling around the ankle. IMPRESSION: 1. No interval radiographic change. 2. Nondisplaced to minimally displaced lateral malleolar fracture again noted with anatomic alignment, although this might represent chronic fracture given the lack of acute reparative changes along the fracture interface, correlate clinically. 3. Nonspecific mild soft tissue swelling around the ankle. 4. Mild calcaneal spurring.
== END ==
PROVIDERS: PCP Pediatrics; Visit Provider Orthopaedic Surgery
DX: M79.662 Pain in left lower leg (principal); S82.62XA Displaced fracture of lateral malleolus of left fibula, initial encounter for closed fracture
CPT/HCPCS: 73610

== ENCOUNTER → 2021-09-10 13:20 | Outpatient (CLI) | payer MEDICARE, MEDICAID, SELFPAY ==
--- NOTE | 2021-09-10 13:35 | XR_ITS ---
FINAL REPORT CLINICAL HISTORY: fu fracture COMPARISON: August 13, 2021 FINDINGS: LEFT ANKLE SERIES Three views of the left ankle were obtained. There is a subacute oblique fracture of the distal fibular metaphysis. There is no significant callus formation. Alignment is unchanged. The joint spaces and mortise are intact. There is no soft tissue abnormality. IMPRESSION: Subacute fracture of the distal fibula is unchanged in appearance. Reviewed, Interpreted and Dictated by Luis Antonio Moore III, MD Transcribed by NEGIN Hensley Authenticated by Luis Antonio Moore III, MD on 09/10/2021 02:57:39 PM [facility]
== END ==
PROVIDERS: PCP Pediatrics; Visit Provider Orthopaedic Surgery
DX: S82.62XA Displaced fracture of lateral malleolus of left fibula, initial encounter for closed fracture (principal)
CPT/HCPCS: 73610

== ENCOUNTER → 2021-09-24 13:44 | Outpatient (CLI) | payer MEDICARE, MEDICAID, SELFPAY ==
--- NOTE | 2021-09-24 13:48 | XR_ITS ---
FINAL REPORT CLINICAL HISTORY: left ankle fx COMPARISON: September 10, 2021 FINDINGS: LEFT ANKLE: Three views of the left ankle were obtained. There is a fracture of the distal fibula with the fracture line still visible. The joint spaces and mortise are intact. There is no soft tissue abnormality. IMPRESSION: Distal fibular fracture, unchanged. Reviewed, Interpreted and Dictated by Ric Aragon MD Transcribed by Tariq Alejandro Authenticated by Ric Aragon MD on 09/24/2021 02:36:15 PM [facility]
== END ==
PROVIDERS: PCP Pediatrics; Visit Provider Orthopaedic Surgery
DX: S82.62XA Displaced fracture of lateral malleolus of left fibula, initial encounter for closed fracture (principal)
CPT/HCPCS: 73610

== ENCOUNTER 2021-09-24 14:54 | Outpatient (RCR) | payer MEDICARE, MEDICAID, SELFPAY | END 2021-09-24 15:24 | disposition home or self-care (01) | LOC: PT 14:54 | PROVIDERS: Visit Provider Orthopaedic Surgery | DX: S82.63XD Displaced fracture of lateral malleolus of unspecified fibula, subsequent encounter for closed fracture with routine healing (principal) | CPT/HCPCS: 97760 ==

== ENCOUNTER 2021-09-27 14:00 | Outpatient (RCR) | payer MEDICARE, MEDICAID, SELFPAY ==
--- NOTE | 2021-09-16 14:25 | HMH.PTOPEV ---
PT Outpatient Evaluation Rehab PT Outpatient Evaluation Start: 09/16/21 14:13 Freq: Status: Active Protocol: Document 09/16/21 14:15 ELLE (Rec: 09/16/21 14:25 ELLE [id number]) Electronically Signed By Justo Desai, PT 09/16/21 14:15 Outpatient Therapy Subjective History Subjective History Patient is a 55 year old female presenting to outpatient PT with reports of L foot/ankle pain S/P L distal fibular fracture occurring 08/03/21 after a trip/fall at an [employer] store. Most recent imaging indicates no significant callus formation of L distal fibular oblique fracture. Comorbidities include hx of pacemaker, asthma, COPD, HTN and HL. Chief Complaint Pain,Stiff,Weakness Symptom Type Ache,Dull Symptoms Relieved By Rest/Positioning,Prescription Meds Symptoms Aggravated By Standing,Physical Activity, Walking Current Functional Limitations Housework,Standing,Recreation Activity,Walking,Stairs, Balance Symptom Description Constant but Variable Level of pain today (0-10) 6 Pain scale - at its best (0-10) 6 Pain scale - at its worst (0-10) 6 Ankle/Foot Eval Gait Observation General Gait Pattern Observation Antalgic Gait,Decrease Weight Bear (L) Palpation Tenderness left Ankle/Foot Palpation Findings Tenderness Ankle/Foot Palpation Overall Comment Lateral malleolus 3/4 ROM Ankle/Foot Dorsiflexion w/Knee Extended 5 Active Range Motion (degrees) Ankle/Foot Dorsiflexion w/Knee Extended 9 Passive Range (degrees) Ankle/Foot Plantar Flexion Active Range WNL of Motion (degrees) Ankle/Foot Eversion Active Range of 22 Motion (degrees) Ankle/Foot Eversion Passive Range of 25 Motion (degrees) Ankle/Foot Inversion Active Range of 31 Motion (degrees) Ankle/Foot Inversion Passive Range of 35 Motion (degrees) Ankle/Foot ROM Limitations Soft Tissue Tightness,Bony Restriction Great Toe ROM Reason Not Measured Within Functional Limits Accessory Movements Ankle Accessory Movements that Elicit Fibular Dorsal [place],Fibular Symptoms Ventral [place],Talus Dorsal [place],Talus Ventral [place] MMT left Ankle Dorsiflexion Strength Grade 4 Good Ankle Plantarflexion Strength
== END 2021-09-27 14:05 | disposition home or self-care (01) ==
LOC: PT 14:00
PROVIDERS: PCP Pediatrics; Visit Provider Orthopaedic Surgery
DX: S82.892D Other fracture of left lower leg, subsequent encounter for closed fracture with routine healing
CPT/HCPCS: 97110; 97112; 97163

== ENCOUNTER → 2021-11-26 09:15 | Outpatient (CLI) | payer MEDICARE, SELFPAY ==
--- NOTE | 2021-11-26 09:34 | XR_ITS ---
FINAL REPORT CLINICAL HISTORY: ankle fracture..pain..swelling COMPARISON: September 24, 2021 FINDINGS: LEFT ANKLE: Three views of the left ankle were obtained. There is extensive soft tissue edema about the ankle. Again seen is an oblique fracture of the distal fibula. The mortise is intact. IMPRESSION: Redemonstration of oblique fracture of the distal fibula, not significantly changed. Reviewed, Interpreted and Dictated by Ric Aragon MD Transcribed by Tariq Alejandro Authenticated by Ric Aragon MD on 11/26/2021 11:04:28 AM [facility]
== END ==
PROVIDERS: PCP Pediatrics; Visit Provider Orthopaedic Surgery
DX: S82.65XA Nondisplaced fracture of lateral malleolus of left fibula, initial encounter for closed fracture (principal)
CPT/HCPCS: 73610

== ENCOUNTER → 2022-01-25 13:19 | Outpatient (CLI) | payer MEDICARE, SELFPAY ==
--- NOTE | 2022-01-25 13:20 | CA_ITS ---
APPROVED REPORT EXAM: Comprehensive 2D, Doppler, and color-flow Echocardiogram Anthropologist: SIVA Mcgill, RVS Ht: 5 ft 4 in Wt: 240lbs BSA: 2.11 BP: 134/85 mmHg Indications: cm, copd, Obesity, Fatigue, SOA, Heart failure, AICD, CAD Echo Enhancing Agent Indication: Rule out thrombus Agent(s) / Amount(s) Used: Definity 2 cc 2D Dimensions IVSd 1.34 cm LVEF (Visual) 44.00 % PWd 1.01 cm LA Volume 71.00 mL LVDd 6.07 cm LA Volume Index 33.60 mL/m2 (M/F) 16-34 LVDs 4.72 cm LVOT 2.19 cm (M/F) 1.5-2.5 M-Mode Dimensions LA Diam 3.49 cm (1.9-4.0) Ao Diam 3.15 cm (2.0-3.7) EPSs 1.83 cm TAPSE 1.74 (<1.7) LV Diastology E Decel Time 150.00 (160-240 msec) E/A Ratio 0.75 MED E' 3.70 (< 7 cm/sec) MED A' 7.10 cm/s E'/MED E' Ratio 26.24 (>14) LAT E' 3.90 (<10 cm/sec) LAT A' 10.50 cm/s E/LAT E' Ratio 24.90 (>14) Aortic Valve LVOT Max 117.00 (70-110 cm/s) LVOT VTI 23.74 cm AoV Peak Gutierrez. 186.00 (50-130 cm/s) AO Peak GR. 13.80 mmHg AO Mean GR. 6.80 (<5 mmHg) AO VTI 32.00 (18-25 cm) JAQUELIN (VTI) 2.79 (2.5-4.5 cm2) Mitral Valve MV A Velocity 129.00 (40-130 cm/s) E/A Ratio 0.75 MV Decel. Time 150.00 (160-240 ms) Pulmonary Valve PV Peak Velocity 91.00 (50-150 cm/s) Tricuspid Valve TR P. Velocity 238.00 cm/s RAP Estimate 10.00 mmHg RVSP 32.60 mmHg Left Ventricle Technically difficult study, Definity contrast was utilized to delineate the endocardial surfaces, left atrium is mildly enlarged, left ventricle is normal size, mild concentric left ventricular hypertrophy, estimated ejection fraction approximately 30% left ventricle is globally hypokinetic. Diastolic parameters are inconclusive. Right Ventricle Right atrium and right ventricle mildly enlarged with normal contractility, AICD leads in the right ventricle. Aortic Valve Aortic valve is minimally thickened and fibrosed there is no aortic stenosis or aortic insufficiency. Mitral Valve Mitral valve leaflets are minimally thickened, there is mild mitral regurgitation. Tricuspid Valve Tricuspid valve grossly normal, there is mild tricuspid regurgitation, tricuspid regurgitation jet velocity is inadequate for calculation of the right ventricular systolic pressure. Pulmonic Valve Pulmonic valve is poorly visualized. Great Vessels Aortic root is normal size. Inferior vena cava is poorly visualized. Pericardium No significant pericardial effusion noted. Conclusion 1. Technically difficult study, Definity contrast was utilized to delineate the endocardial surfaces, normal left ventricular size, severe reduced left ventricular systolic function, estimated ejection fraction 30% left ventricle is globally hypokinetic, there is no left ventricular thrombus seen. Diastolic parameters are inconclusive. 2. Mild mitral and tricuspid regurgitation. 3. No significant pericardial effusion noted. 4. Inferior vena cava is poorly visualized. Electronically signed by : Cristopher Lopez MD 01/25/2022 18:42:55
== END ==
LOC: RT 13:20
PROVIDERS: PCP Pediatrics; Visit Provider Internal Medicine
DX: E78.5 Hyperlipidemia, unspecified (principal); I42.9 Cardiomyopathy, unspecified; I50.9 Heart failure, unspecified; R06.00 Dyspnea, unspecified; Z95.810 Presence of automatic (implantable) cardiac defibrillator; I20.8 Other forms of angina pectoris; I11.0 Hypertensive heart disease with heart failure
CPT/HCPCS: 93306; Q9957

== ENCOUNTER → 2022-03-09 13:18 | Outpatient (CLI) | payer MEDICARE, SELFPAY ==
[2022-03-09 14:33] LABS: Basophils # 0.1 K/mm3 (0-0.2); Basophils % 1.3 % (0.1-2.0); Eosinophils % 0.4 % (0.1-12.0); Hematocrit 45.5 % (37.0-47.0); Hemoglobin 14.8 g/dL (12.2-16.2); Lymphocytes # 2.1 K/mm3 (0.7-4.5); Lymphocytes % 29.1 % (10-50); Mean Corpuscular HGB Conc 32.6 g/dL (31.8-35.4); Mean Corpuscular Hemoglobin 30.2 pg (27.0-31.2); Mean Corpuscular Volume 92.5 fl (81-99); Mean Platelet Volume 9.7 fl (7.4-10.4); Monocytes # 0.5 K/mm3 (0.1-1.0); Monocytes % 6.5 % (1.7-9.3); Neutrophils # 4.5 K/mm3 (1.8-7.8); Neutrophils % 62.6 % (37.0-80.0); Platelet Count 249 K/mm3 (142-424); Red Blood Count 4.92 M/mm3 (4.20-5.40); Red Cell Distribution Width 14.2 % (11.5-17.5); White Blood Count 7.2 K/mm3 (4.8-10.8)
[2022-03-09 15:07] LABS: Alanine Aminotransferase 31 U/L (12-78); Albumin Level 3.9 g/dl (3.5-5.0); Alkaline Phosphatase 137 U/L (38-126); Anion Gap 10.9 mEq/L (5-15); Aspartate Amino Transferase 42 U/L (14-36); Bilirubin,Direct 0.1 mg/dl (0.0-0.4); Bilirubin,Indirect 0.2 mg/dL (0.0-0.9); Bilirubin,Total 0.3 mg/dl (0.2-1.3); Bilirubin,Unconjugated 0.1 mg/dL (0.0-1.1); Blood Urea Nitrogen 17 mg/dl (7-17); Calcium 8.6 mg/dl (8.4-10.2); Carbon Dioxide 34 mmol/L (22.0-30.0); Chloride 98 mmol/L (98-107); Chol/HDL Ratio 3.3 (1-3.5); Cholesterol 108 mg/dl (140-200); Estimated Glomerular Filt Rate 57 ml/min (>60); GFR (African American) 69 ML/MIN (>60); Glucose 260 mg/dl (74-100); HDL Cholesterol 33 mg/dl (40-60); Magnesium 1.5 mg/dl (1.6-2.3); Potassium 3.9 mmoL/L (3.5-5.1); Sodium 139 mmol/L (136-145); Total Protein,Serum 7.2 g/dl (6.3-8.2); Triglycerides 148 mg/dl (30-150); VLDL Cholesterol 30 mg/dL (0-40)
[2022-03-09 15:23] LABS: Free T4 (Free Thyroxine) 1.05 ng/dl (0.78-2.19)
[2022-03-11 09:48] LABS: Direct LDL Cholesterol 52 mg/dL (100-129)
== END ==
LOC: LAB 13:19
PROVIDERS: PCP Pediatrics; Visit Provider Internal Medicine
DX: E78.5 Hyperlipidemia, unspecified (principal); I50.9 Heart failure, unspecified; R06.00 Dyspnea, unspecified; Z95.810 Presence of automatic (implantable) cardiac defibrillator; I42.8 Other cardiomyopathies; I11.0 Hypertensive heart disease with heart failure; I20.8 Other forms of angina pectoris; E78.2 Mixed hyperlipidemia
CPT/HCPCS: 36415; 80048; 80061; 80076; 83735; 84439; 84443; 85025

== ENCOUNTER 2023-01-16 12:43 | Emergency (ER) | payer MEDICARE, MEDICAID, SELFPAY ==
[2023-01-16 13:55] VITALS: BP 141/79; PULSE 86; RESP 18; TEMP 36.8; O2SAT 98; BMI 41.1
[2023-01-16 14:03] LABS: Apearance,Urine Clear (Clear); Bilirubin,Urine Negative (Negative); Blood, Urine Trace (Negative); Color,Urine Yellow (Yellow); Glucose,Urine (UA) Negative (Negative); Ketones,Urine Negative (Negative); Protein,Urine Trace (Negative); UTC Leukocyte Esterase,Urine 2+ (Negative); UTC Nitrate,Urine Negative (Negative); Urobilinogen,Urine 0.2 EU/dl (0.2)
--- NOTE | 2023-01-16 14:20 | EXP.UTC ---
Discharge Plan Disposition Patient Disposition: Home, Self-Care Condition: Good Prescriptions Prescriptions: New cephalexin 500 mg capsule 500 mg PO BID 7 Days Qty: 14 0RF No Action albuterol sulfate 2.5 mg /3 mL (0.083 %) solution for nebulization 2.5 mg INHALATION Q20M aspirin [Adult Low Dose Aspirin] 81 mg tablet,delayed release (DR/EC) 81 mg PO QDAY sertraline 50 mg tablet 50 mg PO QDAY oxycodone-acetaminophen 10-325 mg tablet 1 tab PO QID atorvastatin [Lipitor] 20 mg tablet 20 mg PO DAILY Qty: 30 5RF ipratropium-albuterol 0.5 mg-3 mg(2.5 mg base)/3 mL solution for nebulization IH Label Comments: INHALE CONTENTS OF 1 VIAL (3 ML) BY NEBULIZATION EVERY 6 HOURS NEEDED FOR SHORTNESS OF BREATH. metformin 500 mg tablet 500 mg PO BID Label Comments: TAKE 1 TABLET BY MOUTH TWICE A DAY WITH MEALS Entresto 49-51 mg tablet 1 tab PO BID Qty: 60 5RF spironolactone [Aldactone] 50 mg tablet 50 mg PO BID Qty: 180 3RF carvedilol 25 mg tablet See Rx Instructions .ROUTE .COMPLEX Qty: 270 4RF Dose Instruction: TAKE 1 1/2 TABLET BY MOUTH TWICE A DAY Rx Instructions: TAKE 1 1/2 TABLET BY MOUTH TWICE A DAY metolazone 2.5 mg tablet 2.5 mg PO DAILY Qty: 90 1RF torsemide 100 mg tablet 50 mg PO DAILY Qty: 90 1RF phenazopyridine 200 MG tablet 200 pow PO TID Qty: 6 0RF Referrals Follow up/Referrals: Chuck Morgan [Primary Care Provider] - See instructions Activity Restrictions/Add. Instructions Additional Instructions/Restrictions: *Increase fluids. Water not Soda or Tea *Start antibiotic immediately and be sure to take as ordered for the FULL length of time although you should start to see improvement over the next 48 hours *Be SURE to follow up anytime for new or worsening symptoms with your family doctor. AND in 48 hours for urine culture results with your family doctor, if you do not have a doctor then you may call back to the [facility] for urine culture results and further treatment. We do recommend that you choose and establish care with a Primary Care Physician. ?AND follow up with them ?in 10-14 days to repeat UA to ensure infection is resolved and blood no longer present *Be sure to let your PCP know that we sent urine cultures from the [facility] so they can follow up to ensure that you area the on the correct antibiotic Call your doctor office and make appointment for 48 hours (2 days from today) ?to follow up and get the results of your urine culture and further treatment Clinical Impressions Clinical Impression: UTI (urinary tract infection) Instructions Patient Instructions: DI for Urinary Tract Infection (UTI), Urinary Tract Infection Discharge ED Provider: Betty Joshi [facility] [place] General Stated complaint: Pressure when urinating, frequent urination Mode of Arrival: Ambulatory Source of Information: Patient Limitations: No Limitations Time Seen by Provider: 01/16/23 14:26 Description of Symptoms (Recalled from Triage Doc. by RN): PATIENT C/O PRESSURE AND FREQUENCY WITH URINATION X 2 DAYS HEENT Symptoms (Recalled from RN notes): No Resp Symptoms (Recalled from RN notes): No Skin Symptoms (Recalled from RN notes): No MS Symptoms (Recalled from RN notes): No Functional Status (Recalled from RN notes): WNL History of Present Illness Provider Complaint: Patient states that she has been having urinary frequency and pressure when she urinates States that it feels like it does when she has a kidney infection and wanted to come in before it got too bad States that she feels like she just has to go all the time Related Data Home Medications Medication Instructions Recorded Confirmed albuterol sulfate 2.5 mg/3 mL 2.5 mg inhalation Q20M lungs 07/31/17 03/09/22 (0.083 %) solution for nebulization aspirin 81 mg tablet,delayed 81 mg PO QDAY Blood thinner 07/31/17 03/09/22 release (Adult Low Dose Aspirin) sertraline 50 m
[2023-01-16 14:24] VITALS: BP 141/79; PULSE 86; RESP 18; TEMP 36.8; O2SAT 98
== END 2023-01-16 14:38 | disposition home or self-care (01) ==
PROVIDERS: Emergency Provider Nurse Practitioner; PCP Pediatrics
DX: N39.0 Urinary tract infection, site not specified (principal); E11.9 Type 2 diabetes mellitus without complications; J44.9 Chronic obstructive pulmonary disease, unspecified; I25.10 Atherosclerotic heart disease of native coronary artery without angina pectoris; J45.909 Unspecified asthma, uncomplicated; E78.5 Hyperlipidemia, unspecified; F41.9 Anxiety disorder, unspecified; F32.A Depression, unspecified; B96.89 Other specified bacterial agents as the cause of diseases classified elsewhere; Z79.84 Long term (current) use of oral hypoglycemic drugs; I11.9 Hypertensive heart disease without heart failure
CPT/HCPCS: 81003; 87086; 87088; 87186; 99212; 99214; G0463

== ENCOUNTER 2023-07-28 15:45 | Emergency (ER) | payer MEDICARE, MEDICAID, SELFPAY ==
[2023-07-28 16:35] VITALS: BP 117/66; PULSE 84; RESP 20; TEMP 36.7; O2SAT 96; BMI 37.9
--- NOTE | 2023-07-28 16:45 | ED_ITS ---
Discharge Plan Disposition Patient Disposition: Home, Self-Care Condition: Good Prescriptions Prescriptions: New methylprednisolone 4 mg Tablets,Dose Pack 4 mg PO DIRECTED 6 Days Qty: 21 0RF Rx Instructions: Take 1 pack as directed for 6 days phenazopyridine [Pyridium] 200 mg tablet 200 mg PO Q8H 2 Days Qty: 6 0RF sulfamethoxazole-trimethoprim [Bactrim DS] 800-160 mg Tablet 1 tab PO BID Qty: 14 0RF No Action albuterol sulfate 2.5 mg /3 mL (0.083 %) solution for nebulization 2.5 mg INHALATION Q20M aspirin [Adult Low Dose Aspirin] 81 mg tablet,delayed release (DR/EC) 81 mg PO QDAY sertraline 50 mg tablet 50 mg PO QDAY oxycodone-acetaminophen 10-325 mg tablet 1 tab PO QID Entresto 49-51 mg tablet 1 tab PO BID Qty: 60 3RF atorvastatin [Lipitor] 20 mg tablet 20 mg PO DAILY Qty: 30 5RF ipratropium-albuterol 0.5 mg-3 mg(2.5 mg base)/3 mL solution for nebulization IH Patient Comments: INHALE CONTENTS OF 1 VIAL (3 ML) BY NEBULIZATION EVERY 6 HOURS NEEDED FOR SHORTNESS OF BREATH. metformin 500 mg tablet 500 mg PO BID Patient Comments: TAKE 1 TABLET BY MOUTH TWICE A DAY WITH MEALS spironolactone [Aldactone] 50 mg tablet 50 mg PO BID Qty: 180 3RF metolazone 2.5 mg tablet 2.5 mg PO DAILY Qty: 90 1RF torsemide 100 mg tablet 50 mg PO DAILY Qty: 90 1RF carvedilol 25 mg tablet See Rx Instructions .ROUTE .COMPLEX Qty: 270 4RF Dose Instruction: TAKE 1 AND 1/2 TABLET BY MOUTH TWICE A DAY Rx Instructions: TAKE 1 AND 1/2 TABLET BY MOUTH TWICE A DAY Referrals Follow up/Referrals: Chuck Morgan [Primary Care Provider] - See instructions Activity Restrictions/Add. Instructions Additional Instructions/Restrictions: Drink plenty of fluids. Take tylenol or ibuprofen for pain or fever. Take the medications as directed. Follow up with your regular doctor. GO TO THE ER FOR ANY WORSENING SYMPTOMS The pyridium will make your urine turn orange, this is an expected side effect. It will stain your clothes if it comes into contact with them. We will culture the urine. That will tell what bacteria is causing your infection and which antibiotics will treat it best. Sometimes the first antibiotic we prescribe turns out to not work against different bacteria. So, make sure you follow up within 3 days if you are not getting better. Clinical Impressions Clinical Impression: UTI (urinary tract infection), Low back pain Instructions Patient Instructions: Urinary Tract Infection, Urine Culture, Phenazopyridine Discharge ED Provider: Nam Vaughan [facility] General Stated complaint: possible uti Time Seen by Provider: 07/28/23 16:45 History of Present Illness Provider Complaint: She states that for the past 2 days she has had had low back pain, dysuria, and urinary frequency. Related Data Home Medications Medication Instructions Recorded Confirmed albuterol sulfate 2.5 mg/3 mL 2.5 mg inhalation Q20M lungs 07/31/17 07/13/23 (0.083 %) solution for nebulization aspirin 81 mg tablet,delayed 81 mg PO QDAY Blood thinner 07/31/17 07/13/23 release (Adult Low Dose Aspirin) sertraline 50 mg tablet 50 mg PO QDAY Depression 07/31/17 07/13/23 oxycodone-acetaminophen 10 mg-325 1 tab PO QID pain 03/13/18 07/13/23 mg tablet ipratropium 0.5 mg-albuterol 3 mg ml inhalation 01/25/22 07/13/23 (2.5 mg base)/3 mL nebulization soln metformin 500 mg tablet 500 mg PO BID 01/25/22 07/13/23 Previous Rx's Medication Instructions Recorded spironolactone 50 mg tablet 50 mg PO BID Fluid #180 tabs 03/30/21 (Aldactone) atorvastatin 20 mg tablet (Lipitor) 20 mg PO DAILY #30 tabs 05/25/21 metolazone 2.5 mg tablet 2.5 mg PO DAILY #90 tabs 09/09/22 torsemide 100 mg tablet 50 mg PO DAILY #90 tabs 09/09/22 carvedilol 25 mg tablet See Rx Instructions .Route 05/22/23 .COMPLEX #270 tabs sacubitril 49 mg-valsartan 51 mg 1 tab PO BID #60 tabs 07/13/23 tablet (Entresto) methylprednisolone 4 mg tablets in 4 mg PO DIRECTED 6 days #21 tabs 07/28/23 a dose pack phenazopyridine 200 mg tablet 200 mg PO Q8H 2 days #6 tabs 07/28/23 (Pyridium) sulfamethoxazole 800 1 tab PO BID #14 tabs 07/28/23 mg-trimethoprim 160 mg tablet (Bactrim DS) Allergies Allergy/AdvReac Type Severity Reaction Status Date / Time No Known Allergies Allergy Verified 07/13/23 15:12 PFSH PFS Disclaimer: The information contained in this section may have been updated after the patient was seen, as this information can be updated by other users. Medical History Anxiety Asthma CAD (coronary artery disease) COPD (chronic obstructive pulmonary disease) Depression Diabetes mellitus, type 2 History of gastroesophageal reflux (GERD) Hyperlipidemia Migraine Surgical History History of section History of hysterectomy Social History Smoking Status: Never smoker second hand exposure: Yes alcohol intake: never counseling provided: none substance use type: denies use current occupational status: other Travel in the last 8 weeks: Inside the [place] household members: none housing: house current occupational exposures/hazards: No caffeine: No ROS Obtained: Yes All systems reviewed & no additional complaints except as documented Constitutional Constitutional: Reports system reviewed and no additional complaints, except as documented, Denies chills and Denies fever(s) Eyes Eyes: Denies eye discharge ENT Ears, Nose, Mouth, and Throat: Denies dysphagia, Denies sore throat and Denies throat swelling Cardiovascular Cardiovascular: Denies chest pain and Denies dyspnea Respiratory Respiratory: Denies chest congestion, Denies cough and Denies dyspnea Gastrointestinal Gastrointestingal: Denies abdominal pain, constipation, diarrhea, dysphagia, nausea or vomiting Genitourinary Female Genitourinary: Reports as per HPI, Reports dysuria, Reports urinary frequency, Denies urinary incontinence, Reports urinary hesitancy and Reports urinary urgency Musculoskeletal Musculoskeletal: Denies arthralgias and Reports back pain Integumentary/Breasts Skin/Breast: Denies rash Neurologic Neurologic: Denies paresthesias Allergic/Immunologic Allergic/Immunologic: Denies throat swelling Physical Exam General General appearance: alert and in no apparent distress Head Head exam: atraumatic and normocephalic Eye Eye exam: Present normal appearance, PERRL and EOMI ENT ENT exam: Present normal exam, mucous membranes moist, TM's normal bilaterally and normal external ear exam Neck Neck exam: Present normal inspection, full ROM and trachea midline; Absent tenderness, meningismus or lymphadenopathy Chest Chest inspection: Present normal inspection and symmetric chest wall rise; Absent tenderness Respiratory Respiratory exam: Present normal lung sounds bilaterally; Absent respiratory distress, wheezes or stridor Cardiovascular Cardiovascular exam: Present regular rate, normal rhythm and normal heart sounds Abdominal Exam Abdominal exam: Present soft and normal bowel sounds; Absent distention, tenderness, guarding, rebound, rigidity, incision, psoas sign, obturator sign, heel tap sign, Kinsey's sign, Rovsing's sign or tenderness at McBurney's Point Extremities Exam Extremities exam: Present normal inspection, full ROM and normal capillary refill; Absent tenderness, edema, joint swelling, calf tenderness or cyanosis Back Exam Back exam: Present normal inspection and full ROM; Absent tenderness, CVA tenderness (R) or CVA tenderness (L) Neurological Exam Neurological exam: Present alert, oriented X3 and normal gait Psychiatric Psychiatric exam: Present normal affect and normal mood Skin Skin exam: Present warm, dry, intact and normal color Lymphatic Lymphatic Findings: no adenopathy Medical Decision Making Medical Records Medical records reviewed: No I reviewed the patient's medical records. Christophe Inquiry Pt receiving controlled substance: No Lab Data Lab results reviewed: Yes I reviewed the patient's lab results.
[2023-07-28 17:01] LABS: Apearance,Urine Clear (Clear); Bilirubin,Urine Negative (Negative); Blood, Urine Negative (Negative); Color,Urine Yellow (Yellow); Glucose,Urine (UA) Negative (Negative); Ketones,Urine Negative (Negative); Protein,Urine Negative (Negative); Specific Gravity, Urine 1.015 (1.005-1.030); UTC Leukocyte Esterase,Urine Negative (Negative); UTC Nitrate,Urine Negative (Negative); Urobilinogen,Urine 0.2 EU/dl (0.2)
[2023-07-28 17:03] VITALS: BP 117/66; PULSE 84; RESP 20; TEMP 36.7; O2SAT 96
== END 2023-07-28 17:08 | disposition home or self-care (01) ==
PROVIDERS: Emergency Provider Nurse Practitioner Family; PCP Pediatrics
DX: N39.0 Urinary tract infection, site not specified (principal); B96.89 Other specified bacterial agents as the cause of diseases classified elsewhere; M54.59 Other low back pain; I25.10 Atherosclerotic heart disease of native coronary artery without angina pectoris; I11.9 Hypertensive heart disease without heart failure; E78.5 Hyperlipidemia, unspecified; J44.9 Chronic obstructive pulmonary disease, unspecified; E11.9 Type 2 diabetes mellitus without complications; Z79.84 Long term (current) use of oral hypoglycemic drugs
CPT/HCPCS: 81003; 87086; 99212; 99214; G0463

== ENCOUNTER 2023-08-10 11:00 | Outpatient (CLI) | payer MEDICARE, MEDICAID, SELFPAY ==
--- NOTE | 2023-08-10 | CA_ITS ---
APPROVED REPORT Exam: Pharmacologic Technologist: Alanis Don, Ht: 5 ft 6 in Wt: 243 lbs BSA: 2.17 m2 HR: 86 bpm BP: 143/74 mmHg Rhythm: VENTRICULAR PACED RHYTHM Medical History Medical History: Hyperlipidemia, Diabetes Medications: Aspirin,,,,, Metformin,,,,, Atorvastatin,,,,, Carvedilol,,,,, Albuterol,,,,, Sertraline,,,,, Metolazone,,,,, SpirOnolactone,,,,, ViCODIN,,,,, TorSEMIDE,,,,, EnTRESTO,,,,, Allergies: No known drug allergies Cardiac Risk Factors: Hyperlipidemia, Diabetes Stress Test Details Test: LEXISCAN HR Resting HR: 97 bpm Max Heart Rate (APMHR): 162 bpm Max HR Achieved: 115 bpm Target HR (85% APMHR): 138 bpm % of APMHR: 71 Recovery HR: 103 bpm BP Resting BP: 143/74 mmHg Max BP: 149/71 mmHg Recovery BP: 149.0/71.0 mmHg ECG Resting ECG: VENTRICULAR PACED RHYTHM Arrhythmia: NONE Clinical Exercise duration: 04:01 min Highest Stage Achieved: Stress ECG Conclusion PT HAD MILD SOA, AND HEAD DISCOMFORT NO CP V-PACED RHYTHM CONCLUSION NON-DIAGNOSTIC LEXISCAN DUE TO V-PACED RHYTHM MYOVIEW IMAGES REPORTED SEPARATELY Test Summary REST . . . . . . . Resting REST 04:41 . . 97 . 143/ 74 . . Stage 1 . . . . . . . Cardiolite injected Stage 1 01:00 . . 112 . . . . Stage 2 01:00 . . 110 . . . . Stage 3 01:00 . . 108 . 139/ 69 . . Stage 4 01:00 . . 108 . 144/ 65 . . Stage 4 01:01 . . 108 . 144/ 65 . Stop exercise at 04:01 RECOVERY 01:00 . . 108 . 146/ 75 . . RECOVERY 02:00 . . 103 . 146/ 75 . . RECOVERY 03:00 . . 100 . 149/ 71 . . RECOVERY 03:16 . . 103 . 149/ 71 . . Electronically signed by : Darling Scott MD 08/13/2023 06:28:47
--- NOTE | 2023-08-10 11:06 | NM_ITS ---
APPROVED REPORT Exam: Nuclear Stress Test Indication: chest pain..soa Patient Location: Outpatient Stress Tech: Alanis Mcarthur [place] Tech:Sofiya Solares [place] RT(R)(N) Ht: 5 ft 6 in Wt: 215 lbs Bra Size: 46ddd HR: 94 bpm BP: 143/74 mmHg BSA: 2.06 m2 TID: 1.04 BMI: 34.6 History: chest pain..soa Procedure: Patient received 0.4 mg of intravenous Lexiscan, resting heart rate 97 bpm, resting blood pressure 143/74 mmHg, with Lexiscan maximum heart rate achieved was 115 bpm which is 85 % of the maximum predicted heart rate and blood pressure was 149/71 mmHg. With Lexiscan, patient denied any complaint of chest pain. Cardiac Stress and Resting SPECT Images: Cardiac Stress and Resting SPECT images were obtained using technetium 99m Myoview 30.9 mCi stress and 9.71 mCi at rest. Resting and stress imaging in supine and prone positions demonstrate a medium-sized, moderate, predominantly fixed perfusion defect in the mid to distal anterior LV wall, involving the LV apex. There is also a medium-sized, moderate, fixed perfusion defect in the basal to mid lateral LV wall. Gated imaging demonstrates severe reduction in global LV systolic function. The LV apex is nearly akinetic. LVEF is calculated at 19%. Conclusion: Medium-sized, moderate, predominantly fixed perfusion defect in the mid to distal anterior LV wall, involving the LV apex. There is also a medium-sized, moderate, fixed perfusion defect in the basal to mid lateral LV wall. Gated imaging demonstrates severe reduction in global LV systolic function. The LV apex is nearly akinetic. LVEF is calculated at 19%. Electronically signed by : Darling Scott MD 08/13/2023 06:32:27
[2023-08-10] MEDS: ISOTOPE MYOVIEW (PER STUDY) 1 DOSE IV (14:04)
[2023-08-10] MEDS: REGADENOSON 0.4MG/5ML SYRINGE 0.400000000000000022 MG IV (14:04)
[2023-08-10] MEDS: SODIUM CHLORIDE 0.9% 10ML SYR (RAD ONLY) 10 ML IV ×2 (14:04)
== END 2023-08-10 23:59 ==
LOC: RAD 11:00
PROVIDERS: PCP Pediatrics; Visit Provider Internal Medicine
DX: E78.5 Hyperlipidemia, unspecified (principal); I11.9 Hypertensive heart disease without heart failure; R06.00 Dyspnea, unspecified; R07.9 Chest pain, unspecified; Z95.810 Presence of automatic (implantable) cardiac defibrillator; I20.89 Other forms of angina pectoris; I42.8 Other cardiomyopathies
CPT/HCPCS: 78452; 93017; 93018; A9502; J2785

== ENCOUNTER 2023-08-22 15:13 | Outpatient (CLI) | payer MEDICARE, MEDICAID, SELFPAY ==
[2023-08-22 15:59] LABS: Basophils % 0.4 % (0.1-2.0); Eosinophils # 0.2 K/mm3 (0.0-0.4); Eosinophils % 1.7 % (0.1-12.0); Hematocrit 42.5 % (37.0-47.0); Hemoglobin 14.4 g/dL (12.2-16.2); Lymphocytes # 2.3 K/mm3 (0.7-4.5); Lymphocytes % 23.6 % (10-50); Mean Corpuscular HGB Conc 33.8 g/dL (31.8-35.4); Mean Corpuscular Hemoglobin 30.7 pg (27.0-31.2); Mean Corpuscular Volume 90.9 fl (81-99); Mean Platelet Volume 9.1 fl (7.4-10.4); Monocytes # 0.6 K/mm3 (0.1-1.0); Monocytes % 6.5 % (1.7-9.3); Neutrophils # 6.6 K/mm3 (1.8-7.8); Neutrophils % 67.8 % (37.0-80.0); Platelet Count 291 K/mm3 (142-424); Red Blood Count 4.67 M/mm3 (4.20-5.40); Red Cell Distribution Width 14.2 % (11.5-17.5); White Blood Count 9.7 K/mm3 (4.8-10.8)
[2023-08-22 16:34] LABS: Chloride 106 mmol/L (98-107)
[2023-08-22 16:35] LABS: Potassium 4.3 mmoL/L (3.5-5.1); Sodium 140 mmol/L (136-145)
[2023-08-22 16:37] LABS: Alanine Aminotransferase 22 U/L (12-78); Albumin Level 3.5 g/dl (3.5-5.0); Alkaline Phosphatase 138 U/L (38-126); Anion Gap 10.3 mEq/L (5-15); Aspartate Amino Transferase 24 U/L (14-36); Bilirubin,Direct 0.5 mg/dl (0.0-0.4); Bilirubin,Total 0.5 mg/dl (0.2-1.3); Blood Urea Nitrogen 13 mg/dl (7-17); Carbon Dioxide 28 mmol/L (22.0-30.0); Estimated Glomerular Filt Rate 103 ml/min (>60); GFR (African American) 124 ML/MIN (>60); Total Protein,Serum 6.7 g/dl (6.3-8.2)
[2023-08-22 16:38] LABS: Calcium 8.3 mg/dl (8.4-10.2); Chol/HDL Ratio 3.6 (1-3.5); Cholesterol 160 mg/dl (140-200); Glucose 143 mg/dl (74-100); HDL Cholesterol 44 mg/dl (40-60); Magnesium 1.7 mg/dl (1.6-2.3); Triglycerides 105 mg/dl (30-150); VLDL Cholesterol 21 mg/dL (0-40)
[2023-08-22 16:50] LABS: Direct LDL Cholesterol 90.16 mg/dL (100-129)
[2023-08-22 16:55] LABS: Free T4 (Free Thyroxine) 0.98 ng/dl (0.78-2.19)
== END 2023-08-22 23:59 ==
LOC: LAB 15:15
PROVIDERS: PCP Pediatrics; Visit Provider Internal Medicine
DX: E78.5 Hyperlipidemia, unspecified (principal); I42.8 Other cardiomyopathies; I50.9 Heart failure, unspecified; R07.9 Chest pain, unspecified; R53.83 Other fatigue; R93.1 Abnormal findings on diagnostic imaging of heart and coronary circulation; Z95.810 Presence of automatic (implantable) cardiac defibrillator
CPT/HCPCS: 36415; 80048; 80061; 80076; 83735; 84439; 84443; 85025

== ENCOUNTER 2023-09-15 07:33 | Day surgery (SDC) | payer MEDICARE, MEDICAID, SELFPAY ==
[2023-09-15] VITALS (16 sets, daily range): BP systolic 106–170; BP diastolic 56–99; PULSE 63–86; RESP 12–20; TEMP 36.2–37.1; O2SAT 96–100; BMI 39.1
--- NOTE | 2023-09-15 07:15 | IR_ITS ---
APPROVED REPORT Patient Location: Outpatient Leather Crafter: [place] Navarro RT (R) PROCEDURES Left heart catheterization Left ventriculogram Selective coronary angiogram INDICATION High risk abnormal Myoview Informed consent was obtained prior to the procedure. COMPLICATIONS None Estimated Blood Loss: Less than 10 mls TECHNIQUE One percent lidocaine used to anesthetize the right anterior aspect of the wrist. The right radial artery was accessed via the Seldinger technique. A 6 Greenlandic sheath was placed in the right radial artery. 2.5 mg of Verapamil, 800 mcg of nitroglycerin, 1mg Lidocaine and 5000 U Heparin were given through the arterial sheath. The papa catheter was also used to perform left heart catheterization, left ventriculogram and selective coronary angiogram. At the end of the procedure the sheath was removed good hemostasis was achieved using Traclet band, patient was transferred to the postop holding area in stable condition. ANGIOGRAPHIC RESULTS The left main artery Normal The left anterior descending artery Has proximal and mid vessel diffuse mild 10% luminal irregularities The circumflex artery Codominant mild diffuse 10% luminal irregularities The right coronary artery Codominant with proximal smooth 30 to 40% stenosis The DEWEY ventriculogram reveals Dilated ventricle reduced ejection fraction The left ventricular end-diastolic pressure 15 mmHg IMPRESSION Nonflow limiting coronary disease as described above Reduced ejection fraction Normal LVEDP for ejection fraction PLAN 1. Interrogate pacemaker. Under fluoroscopy the atrial lead appears to be in an abnormal position. Assess atrial lead competency 2. Standard therapy for coronary disease and LV dysfunction Electronically signed by : Chet Luna MD 09/15/2023 09:03:16
[2023-09-15 08:16] LABS: Basophils # 0.1 K/mm3 (0-0.2); Basophils % 0.4 % (0.1-2.0); Eosinophils # 0.3 K/mm3 (0.0-0.4); Eosinophils % 2.1 % (0.1-12.0); Hematocrit 43.7 % (37.0-47.0); Hemoglobin 14.9 g/dL (12.2-16.2); Lymphocytes # 3.8 K/mm3 (0.7-4.5); Mean Corpuscular HGB Conc 34.1 g/dL (31.8-35.4); Mean Corpuscular Hemoglobin 31.1 pg (27.0-31.2); Mean Corpuscular Volume 91.4 fl (81-99); Mean Platelet Volume 9.5 fl (7.4-10.4); Monocytes # 0.6 K/mm3 (0.1-1.0); Monocytes % 4.7 % (1.7-9.3); Neutrophils # 7.9 K/mm3 (1.8-7.8); Neutrophils % 62.8 % (37.0-80.0); Platelet Count 329 K/mm3 (142-424); Red Blood Count 4.78 M/mm3 (4.20-5.40); White Blood Count 12.5 K/mm3 (4.8-10.8)
[2023-09-15 08:29] LABS: Chloride 108 mmol/L (98-107); Potassium 4.7 mmoL/L (3.5-5.1); Sodium 138 mmol/L (136-145)
[2023-09-15 08:32] LABS: Blood Urea Nitrogen 16 mg/dl (7-17); Creatinine Clearance Estimated 177 mL/min (50-200); Estimated Glomerular Filt Rate 103 ml/min (>60); GFR (African American) 124 ML/MIN (>60)
[2023-09-15 08:33] LABS: Anion Gap 5.7 mEq/L (5-15); Calcium 8.7 mg/dl (8.4-10.2); Carbon Dioxide 29 mmol/L (22.0-30.0); Glucose 145 mg/dl (74-100)
[2023-09-15] MEDS: VERAPAMIL 2.5MG/ML 2ML VIAL 2.5 MG IV (08:51)
[2023-09-15] MEDS: NITROGLYCERIN 800MCG/8ML SYR (CATH LAB) 800 MCG IA (08:51)
[2023-09-15] MEDS: LIDOCAINE 1% 10ML MDV 20 ML IJ (08:51)
[2023-09-15] MEDS: 0.9 % SODIUM CHLORIDE 500 ML 25 ML IV (08:52)
[2023-09-15] MEDS: HEPARIN 1,000 UNITS/500ML NS (CATH LAB) 3000 UNIT IV (08:52)
[2023-09-15] MEDS: HEPARIN 1,000 UNITS/ML 10ML VIAL (CATH LAB) 10000 UNIT IV (08:52)
[2023-09-15] MEDS: MIDAZOLAM HCL 1MG/1ML 5ML VIAL 1 MG IV (08:52)
[2023-09-15] MEDS: FENTANYL 100MCG/2ML VIAL 50 MCG IV (08:53)
[2023-09-15] MEDS: diphenhydrAMINE 50MG/ML VIAL 50 MG IV (09:50)
--- NOTE | 2023-09-15 11:43 | SUR.PHASEII ---
Patient taken to post op area for recovery, bedside report given.
[2023-09-15] MEDS: IOPAMIDOL-370 (76%);100ML BOTTLE 60 ML IV (13:00)
== END 2023-09-15 12:15 | disposition home or self-care (01) ==
PROVIDERS: PCP Pediatrics; Visit Provider Internal Medicine
DX: E78.5 Hyperlipidemia, unspecified (principal); I42.0 Dilated cardiomyopathy; I50.23 Acute on chronic systolic (congestive) heart failure; R07.9 Chest pain, unspecified; R93.1 Abnormal findings on diagnostic imaging of heart and coronary circulation; Z95.810 Presence of automatic (implantable) cardiac defibrillator; I11.0 Hypertensive heart disease with heart failure; I25.10 Atherosclerotic heart disease of native coronary artery without angina pectoris; Z79.899 Other long term (current) drug therapy
CPT/HCPCS: 80048; 85025; 93458; 99152; C1725; C1769; J1644; Q9967

== ENCOUNTER 2024-04-20 16:45 | Emergency (ER) | payer MEDICARE, SELFPAY ==
[2024-04-20 16:47] VITALS: BP 131/79; PULSE 83; RESP 20; TEMP 36.7; O2SAT 96; BMI 32.8
--- NOTE | 2024-04-20 17:20 | ED_ITS ---
<Statement entered by Devi Lucas DO - 04/20/24 23:38> I was consulted by the KENIA, and we discussed the complexity of the problems being addressed. I approved the treatment and management plan for this patient's care in the emergency department, thus performing a substantive portion of the medical decision making. Devi Lucas DO Discharge Plan Disposition Patient Disposition: Home, Self-Care Condition: Good Prescriptions Prescriptions: New cefdinir 300 mg capsule 300 mg PO BID 10 Days Qty: 20 0RF No Action albuterol sulfate 2.5 mg /3 mL (0.083 %) solution for nebulization 2.5 mg INHALATION Q20M aspirin [Adult Low Dose Aspirin] 81 mg tablet,delayed release (DR/EC) 81 mg PO QDAY sertraline 50 mg tablet 50 mg PO QDAY oxycodone-acetaminophen 10-325 mg tablet 1 tab PO QID carvedilol 25 mg tablet 50 mg PO BID Qty: 270 5RF atorvastatin [Lipitor] 20 mg tablet 20 mg PO DAILY Qty: 30 5RF ipratropium-albuterol 0.5 mg-3 mg(2.5 mg base)/3 mL solution for nebulization 1 - 2 ml IH DAILY Patient Comments: INHALE CONTENTS OF 1 VIAL (3 ML) BY NEBULIZATION EVERY 6 HOURS NEEDED FOR SHORTNESS OF BREATH. metformin 500 mg tablet 500 mg PO BID Patient Comments: TAKE 1 TABLET BY MOUTH TWICE A DAY WITH MEALS spironolactone [Aldactone] 50 mg tablet 50 mg PO BID Qty: 180 3RF metolazone 2.5 mg tablet 2.5 mg PO DAILY Qty: 90 1RF torsemide 100 mg tablet 50 mg PO DAILY Qty: 90 1RF Entresto 49-51 mg tablet See Rx Instructions .ROUTE .COMPLEX Qty: 180 3RF Dose Instruction: TAKE 1 TABLET BY MOUTH TWICE A DAY Rx Instructions: TAKE 1 TABLET BY MOUTH TWICE A DAY Referrals Follow up/Referrals: Nam Morgan MD [Primary Care Provider] - See instructions Activity Restrictions/Add. Instructions Additional Instructions/Restrictions: Increase fluids and rest. Take antibiotics as directed for ear pain. May take ibuprofen or Tylenol for throat pain. Clinical Impressions Clinical Impression: Otitis media, Sore throat (viral) Instructions Patient Instructions: DI for Tympanic Membrane Perforation-Adult Print Language Print Language: Arabic Discharge ED Provider: Devi Lucas General Adult HPI General Chief complaint: Ear Stated complaint: left ear pain and going down into neck Time Seen by Provider: 04/20/24 16:49 Mode of Arrival: Family Vehicle Source of Information: Patient Limitations: No Limitations Description of Symptoms (Recalled from ER Triage Doc. by RN): Pt c/o left ear pain that radiates down to her L jaw area. States it began yesterday and she took Dayquil & Nyquil yesterday. Denies any hearing loss or drainage from ear. Pt also reports numbness to her tongue intermittently for some time . History of Present Illness HPI narrative: 58-year-old female presented to the ED today for complaint of ear pain on her left side. States that she is having throat pain as well she complains of pain with swallowing. She is also having intermittent tongue numbness that comes and goes. This has been happening for a long time. She has no fevers or chills. No nausea, vomiting or diarrhea. Related Data Home Medications ?Medication ?Instructions ?Recorded ?Confirmed albuterol sulfate 2.5 mg/3 mL 2.5 mg inhalation Q20M lungs 07/31/17 09/21/23 (0.083 %) solution for nebulization aspirin 81 mg tablet,delayed 81 mg PO QDAY Blood thinner 07/31/17 09/21/23 release (Adult Low Dose Aspirin) sertraline 50 mg tablet 50 mg PO QDAY Depression 07/31/17 09/21/23 oxycodone-acetaminophen 10 mg-325 1 tab PO QID pain 03/13/18 09/21/23 mg tablet ipratropium 0.5 mg-albuterol 3 mg 1 - 2 ml inhalation DAILY 01/25/22 09/21/23 (2.5 mg base)/3 mL nebulization soln metformin 500 mg tablet 500 mg PO BID 01/25/22 09/21/23 Previous Rx's ?Medication ?Instructions ?Recorded spironolactone 50 mg tablet 50 mg PO BID Fluid #180 tabs 03/30/21 (Aldactone) atorvastatin 20 mg tablet (Lipitor) 20 mg PO DAILY #30 tabs 05/25/21 carvedilol 25 mg tablet 50 mg (2 x 25 mg) PO BID #270 tabs 09/21/23 metolazone 2.5 mg tablet 2.5 mg PO DAILY #90 tabs 04/08/24 torsemide 100 mg tablet 50 mg (1/2 x 100 mg) PO DAILY #90 11/06/23 tabs sacubitril 49 mg-valsartan 51 mg See Rx Instructions .Route 04/08/24 tablet (Entresto) .COMPLEX #180 tabs cefdinir 300 mg capsule 300 mg PO BID 10 days #20 caps 04/20/24 Allergies Allergy/AdvReac Type Severity Reaction Status Date / Time No Known Allergies Allergy Verified 09/21/23 09:46 [facility] Disclaimer: The information contained in this section may have been updated after the patient was seen, as this information can be updated by other users. Medical History Abnormal findings on diagnostic imaging of heart and coronary circulation Anxiety Asthma CAD (coronary artery disease) COPD (chronic obstructive pulmonary disease) Depression Diabetes mellitus, type 2 History of gastroesophageal reflux (GERD) Hyperlipidemia Migraine Surgical History History of section History of hysterectomy Social History Smoking Status: Former smoker tobacco type: smokeless tobacco second hand exposure: Yes alcohol intake: never counseling provided: none substance use type: denies use current occupational status: other Travel in the last 8 weeks: Inside the [place] household members: none housing: house current occupational exposures/hazards: No caffeine: No ROS Obtained: Yes Systems reviewed as appropriate & no additional complaints except as documented Constitutional Constitutional: Reports system reviewed and no additional complaints, except as documented and Reports as per HPI Physical Exam General General appearance: alert and in no apparent distress Head Head exam: atraumatic and normocephalic Eye Eye exam: Present normal appearance, PERRL and EOMI ENT ENT exam: Present normal exam, normal oropharynx and mucous membranes moist Expanded ENT Exam TM/Canal exam: Left TM: erythema, bulging and effusion Throat exam: Present tonsillar erythema Neck Neck exam: Present normal inspection, full ROM and trachea midline Chest Chest inspection: Present normal inspection Respiratory Respiratory exam: Present normal lung sounds bilaterally Cardiovascular Cardiovascular exam: Present regular rate, normal rhythm, normal heart sounds, +S1 and +S2 Abdominal Exam Abdominal exam: Present soft and normal bowel sounds Extremities Exam Extremities exam: Present normal inspection, full ROM and normal capillary refill Neurological Exam Neurological exam: Present alert, oriented X3 and normal gait Skin Skin exam: Present warm, dry and intact Medical Decision Making Medical Records Screening: Per USPSTF and CDC recommendations, given the prevalence of disease in our region, it is our hospital?s policy to screen for HIV and viral Hepatitis for all patients aged 18 and over and those with ongoing risk factors. Christophe Inquiry Pt receiving controlled substance: No Vital Signs: 04/20/24 16:47 04/20/24 18:58 Temperature 98.0 F 98.0 F Temperature Source Oral Oral Pulse Rate 80 Pulse Rate [Left] 83 Respiratory Rate 20 20 Blood Pressure 130/80 Blood Pressure [Right Arm] 131/79 Blood Pressure Mean [Right Arm] 96 Blood Pressure Source Automatic Cuff Blood Pressure Source [Right Arm] Automatic Cuff 02 Sat by Pulse Oximetry 96 Oxygen Delivery Method Room Air Room Air Lab Data Lab Results 04/20/24 17:45: Group A Strep Rapid Negative Orders (Tests/Meds): ED MEDICATIONS Discontinued Medications Generic Name Dose Route Start Last Admin Trade Name Mindy PRN Reason Stop Dose Admin Cefdinir 300 mg 04/21/24 09:00 04/20/24 18:55 Cefdinir 300mg Capsule PO 05/01/24 08:59 300 mg DAILY VALENCIA Administration ORDERS Category Date Time Status Strep Scrn Group A (Rapid) Routine Lab 04/20/24 17:45 Completed Strep Screen Confirmation Stat Micro 04/20/24 17:45 Received Medical Decision Narrative: Insert review patient is a 58-year-old female presenting to the emergency department for evaluation of left ear pain, throat pain. Patient is hemodynamically stable and nontoxic-appearing upon arrival, afebrile. Differential diagnosis includes upper respiratory infection, ear affection, strep, viral illness among others. Patient's strep test was negative. She refused to do COVID and flu swab although she has a lot of the symptoms of COVID. Patient safe for discharge home with cefdinir as an anti-infective for her left ear infection. Critical Care Critical Care Time Critical Care Time: No
--- NOTE | 2024-04-20 17:47 | INFXCTL.NOTE ---
PT REFUSED FLU/COVID SWAB. PROVIDER NOTIFIED
[2024-04-20 18:37] LABS: Strep Scrn Group A (Rapid) Negative (Negative)
[2024-04-20] MEDS: CEFDINIR 300MG CAPSULE 300 MG PO (18:55)
[2024-04-20 18:58] VITALS: BP 130/80; PULSE 80; RESP 20; TEMP 36.7; O2SAT 98
== END 2024-04-20 18:59 | disposition home or self-care (01) ==
PROVIDERS: Nurse Practitioner; Emergency Provider Emergency Medicine; PCP Family Medicine
DX: H66.92 Otitis media, unspecified, left ear (principal); J02.9 Acute pharyngitis, unspecified; R68.84 Jaw pain; R13.10 Dysphagia, unspecified; R20.0 Anesthesia of skin; B34.9 Viral infection, unspecified; J44.9 Chronic obstructive pulmonary disease, unspecified; I25.10 Atherosclerotic heart disease of native coronary artery without angina pectoris; E11.9 Type 2 diabetes mellitus without complications; E78.5 Hyperlipidemia, unspecified; Z87.891 Personal history of nicotine dependence
CPT/HCPCS: 87430; 99283

== ENCOUNTER 2024-04-22 08:14 | Emergency (ER) | payer MEDICARE, SELFPAY ==
--- NOTE | 2024-04-22 08:24 | PC.NURSE ---
Dr. Hampton at bedside
[2024-04-22 08:25] VITALS: BP 154/89; PULSE 77; RESP 16; TEMP 36.7; O2SAT 95; BMI 38.7
--- NOTE | 2024-04-22 08:32 | XR_ITS ---
FINAL REPORT CLINICAL HISTORY: left groin pain radiating to L knee COMPARISON: None FINDINGS: LEFT HIP: Two views of the left hip with an AP view of the pelvis demonstrate no acute fracture or dislocation. The joint spaces appear normal. The visualized bony structures are well aligned. No soft tissue abnormality is seen. IMPRESSION: No acute bony abnormality. Reviewed, Interpreted and Dictated by Gabriela Rogel MD Transcribed by Patricia Toro Authenticated and [facility]
--- NOTE | 2024-04-22 08:41 | HMH.EDGENADL ---
Discharge Plan Disposition Patient Disposition: Home, Self-Care Prescriptions Prescriptions: New prednisone 20 mg tablet 20 mg PO DAILY 5 Days Qty: 5 0RF No Action albuterol sulfate 2.5 mg /3 mL (0.083 %) solution for nebulization 2.5 mg INHALATION Q20M aspirin [Adult Low Dose Aspirin] 81 mg tablet,delayed release (DR/EC) 81 mg PO QDAY sertraline 50 mg tablet 50 mg PO QDAY oxycodone-acetaminophen 10-325 mg tablet 1 tab PO QID carvedilol 25 mg tablet 50 mg PO BID Qty: 270 5RF atorvastatin [Lipitor] 20 mg tablet 20 mg PO DAILY Qty: 30 5RF ipratropium-albuterol 0.5 mg-3 mg(2.5 mg base)/3 mL solution for nebulization 1 - 2 ml IH DAILY Patient Comments: INHALE CONTENTS OF 1 VIAL (3 ML) BY NEBULIZATION EVERY 6 HOURS NEEDED FOR SHORTNESS OF BREATH. metformin 500 mg tablet 500 mg PO BID Patient Comments: TAKE 1 TABLET BY MOUTH TWICE A DAY WITH MEALS spironolactone [Aldactone] 50 mg tablet 50 mg PO BID Qty: 180 3RF metolazone 2.5 mg tablet 2.5 mg PO DAILY Qty: 90 1RF torsemide 100 mg tablet 50 mg PO DAILY Qty: 90 1RF Entresto 49-51 mg tablet See Rx Instructions .ROUTE .COMPLEX Qty: 180 3RF Dose Instruction: TAKE 1 TABLET BY MOUTH TWICE A DAY Rx Instructions: TAKE 1 TABLET BY MOUTH TWICE A DAY cefdinir 300 mg capsule 300 mg PO BID 10 Days Qty: 20 0RF Referrals Follow up/Referrals: Nam Morgan MD [Primary Care Provider] - See instructions Bijan Diggs DO [Staff Physician] - See instructions Activity Restrictions/Add. Instructions Additional Instructions/Restrictions: Call your family doctor to establish care for this visit to the emergency department and schedule follow-up within 48 hours to ensure improvement. If you have any worsening of your condition or any other concerning signs or symptoms, return to the emergency department or your primary care doctor for further evaluation. Prednisone every morning for the next 5 days, check your sugars 3-4 times a day to make sure they are not getting high. Talk to your family doctor about diabetes control to prevent long-term complications. Clinical Impressions Clinical Impression: Left groin pain Print Language Print Language: Cypriot Discharge ED Provider: Cordell Hampton General Adult HPI General Chief complaint: Extremity Injury, Lower Stated complaint: Pain in left leg Time Seen by Provider: 04/22/24 08:18 Mode of Arrival: Ambulatory Source of Information: Patient Limitations: No Limitations Description of Symptoms (Recalled from ER Triage Doc. by RN): pt c/o L groin pain that radiates distal and is a 9/10. pt reports the pain started yesterday. pt denies N/V/D, abd pain, chest pain, SOA, urinary symptoms or back pain. History of Present Illness HPI narrative: Please note that above description of symptoms, in this electronic medical record under categorization of recalled from ER triage doctor by RN are reflective of an initial nursing assessment, however, is not reflective of my full history and physical exam that was personally taken and clarified. Consequentially, this preceding description of symptoms, which may include the patient's categorized chief complaint in the EMR, do not reflect my personal clinical impression, and the ultimate description of history of present illness and patient stated complaints should be deferred to this section of the note. Unless stated otherwise or congruent with this section of the note, additional signs, symptoms, or incongruence should be interpreted as inaccurate with my clinical impression. Related Data Home Medications ?Medication ?Instructions ?Recorded ?Confirmed albuterol sulfate 2.5 mg/3 mL 2.5 mg inhalation Q20M lungs 07/31/17 09/21/23 (0.083 %) solution for nebulization aspirin 81 mg tablet,delayed 81 mg PO QDAY Blood thinner 07/31/17 09/21/23 release (Adult Low Dose Aspirin) sertraline 50 mg tablet 50 mg PO QDAY Depression 07/31/17 09/21/23 oxycodone-acetaminophen 10 mg-325 1 tab PO QID pain 03/13/18 09/21/23 mg tablet ipratropium 0.5 mg-albuterol 3 mg 1 - 2 ml inhalation DAILY 01/25/22 09/21/23 (2.5 mg base)/3 mL nebulization soln metformin 500 mg tablet 500 mg PO BID 01/25/22 09/21/23 Previous Rx's ?Medication ?Instructions ?Recorded spironolactone 50 mg tablet 50 mg PO BID Fluid #180 tabs 03/30/21 (Aldactone) atorvastatin 20 mg tablet (Lipitor) 20 mg PO DAILY #30 tabs 05/25/21 carvedilol 25 mg tablet 50 mg (2 x 25 mg) PO BID #270 tabs 09/21/23 metolazone 2.5 mg tablet 2.5 mg PO DAILY #90 tabs 11/06/23 torsemide 100 mg tablet 50 mg (1/2 x 100 mg) PO DAILY #90 11/06/23 tabs sacubitril 49 mg-valsartan 51 mg See Rx Instructions .Route 04/08/24 tablet (Entresto) .COMPLEX #180 tabs cefdinir 300 mg capsule 300 mg PO BID 10 days #20 caps 04/20/24 prednisone 20 mg tablet 20 mg PO DAILY 5 days #5 tabs 04/22/24 Allergies Allergy/AdvReac Type Severity Reaction Status Date / Time No Known Allergies Allergy Verified 04/22/24 08:45 [facility] Disclaimer: The information contained in this section may have been updated after the patient was seen, as this information can be updated by other users. Medical History Abnormal findings on diagnostic imaging of heart and coronary circulation Anxiety Asthma CAD (coronary artery disease) COPD (chronic obstructive pulmonary disease) Depression Diabetes mellitus, type 2 History of gastroesophageal reflux (GERD) Hyperlipidemia Migraine Surgical History History of section History of hysterectomy Social History Smoking Status: Never smoker second hand exposure: Yes alcohol intake: never counseling provided: none substance use type: denies use current occupational status: other Travel in the last 8 weeks: Inside the [place] household members: none housing: house current occupational exposures/hazards: No caffeine: No ROS Obtained: Yes All systems reviewed & no additional complaints except as documented Physical Exam General General appearance: alert, in no apparent distress and obese Head Head exam: atraumatic and normocephalic Eye Eye exam: Present normal appearance, PERRL and EOMI Neck Neck exam: Present normal inspection, full ROM and trachea midline Respiratory Respiratory exam: Absent respiratory distress, wheezes, stridor, accessory muscle use or prolonged expiratory phase Cardiovascular Cardiovascular exam: Present other (Pulses equal symmetric in upper and lower extremities) Abdominal Exam Abdominal exam: Present soft; Absent distention, tenderness, guarding, rebound, rigidity or pulsatile mass Extremities Exam Extremities exam: Present other (Tenderness left lower extremity inguinal fold. No evidence of hernia on Valsalva. No external abnormalities. No palpable click. Range of motion intact including internal rotation and external rotation flexion and extension. Patient does have mild pain with external rotation. ); Absent edema Neurological Exam Neurological exam: Present alert, oriented X3 and CN II-XII intact; Absent motor sensory deficit Skin Skin exam: Present warm and dry; Absent diaphoresis or erythema Medical Decision Making Medical Records Medical records reviewed: Yes I reviewed the patient's medical records. Screening: Per USPSTF and CDC recommendations, given the prevalence of disease in our region, it is our hospital?s policy to screen for HIV and viral Hepatitis for all patients aged 18 and over and those with ongoing risk factors. Christophe Inquiry Pt receiving controlled substance: No Christophe was queried for this patient: No Vital Signs: 04/22/24 08:25 Temperature 98.1 F Temperature Source Oral Pulse Rate [Left] 77 Respiratory Rate 16 Blood Pressure [Right Arm] 154/89 H Blood Pressure Mean [Right Arm] 110 Blood Pressure Source [Right Arm] Automatic Cuff Blood Pressure Position [Right Arm] Sitting 02 Sat by Pulse Oximetry 95 Oxygen Delivery Method Room Air Lab Data Lab Results 04/22/24 08:20: Urine Color Yellow, Urine Appearance Clear, Urine pH 7.0, Ur Specific [place] 1.020, Urine Protein Negative, Urine Glucose (UA) Negative, Urine Ketones Negative, Urine Blood Negative, Urine Nitrate Negative, Urine Bilirubin 1+ A, Urine Urobilinogen 0.2, Ur Leukocyte Esterase Negative Orders (Tests/Meds): ORDERS Category Date Time Status Hip XR left minimum 2 views [XR hip LT 2-3V w/pelvis] Exams 04/22/24 08:32 Taken Stat UA [Urinalysis and Microscopic] Stat Lab 04/22/24 08:20 Results Medical Decision Narrative: 58-year-old female history of hypertension, hyperlipidemia, diabetes, COPD not on home oxygen, CAD, ischemic cardiomyopathy with pacemaker defibrillator in place presenting with left leg pain. Patient states that left leg pain started yesterday, is constant, not getting any worse. It is mild in intensity. It is made worse with walking, made better with rest. Patient states that she came in at the behest of her family member who was worried that it may be my heart. Patient denies any numbness, tingling, weakness, coloration changes, swelling, or any abnormalities to the left lower extremity. As stated, pain is mild, in inguinal fold, intermittently radiates down the medial and posterior aspect of her left leg toward her knee. No trauma. Has not taken anything for the pain. No other associated symptoms. Last bowel movement last night normal for her she still passing gas. No urinary symptoms. History was obtained via conversation with patient and . On arrival, patient hemodynamically stable, alert, oriented x4, appropriate, GCS 15, moving all extremities spontaneously, pupils equal and reactive to light. Patient ambulated from registration to her room without issue or limp. Full physical exam performed and significant for obese, well-appearing female who is in no acute distress. Abdomen soft, nontender, nondistended. Does have some tenderness with deep palpation left inguinal fold, but appears to be distractible. Patient has full range of motion active and passive left lower extremity at the hip and knee, but does have tenderness with external rotation of the left hip. Left lower extremity otherwise neurovascularly intact without edema or other abnormalities. Differential includes osteoarthritis, fragility fracture, musculoskeletal pain, radiculopathy, among others. Less likely to be vascular dissection, arterial embolus, or other cardiovascular abnormality. Patient placed on continuous cardiac monitoring and continuous pulse ox with initial blood pressure 154 reading, heart rate 77, saturation 95% on room air. Because patient so well-appearing, no hematologic workup was deemed necessary given neurovascularly intact lower extremity, ambulatory, no physical exam findings necessitating further evaluation. Urinalysis to be obtained and x-rays of the left hip and pelvis. On independent interpretation of these, demonstrated no acute UTI. No evidence of bony abnormality or hip fracture or pelvic fracture on hip and pelvis x-ray. on reevaluation, patient resting comfortably, 20 mg prednisone p.o. given after fingerstick 252 and prolonged conversation had with patient and family regarding need for current checks while on prednisone over the next 5 days and they voiced her understanding for return precautions in the setting of elevated glucose. Patient states she is not taking any antidiabetic medications because they do not work for me. Extensive conversation had with patient regarding critical need for diabetes care in the setting of fingerstick glucose 252, she and her voiced their understanding and will follow-up with her family doctor. Given patient presentation, workup, history, this most likely represents radiculopathy of the left lower extremity versus osteoarthritic pain versus other musculoskeletal pain. Because patient at baseline without signs or symptoms of clinical decompensation, deemed appropriate for discharge. Results were relayed to patient who voiced understanding and were agreeable to outpatient management and follow up. I discussed my clinical impression with patient and answered all questions. At this time, the evidence for any other entities in the differential is insufficient to warrant any further testing or ED observation. This was explained as well. Advisory was given that persistent or worsening symptoms require further evaluation. I confirmed the understanding of this discussion. Manager Valuation disclaimer Much of this encounter note is an electronic certified medical dosimetrist spoken language to printed text. Electronic certified medical dosimetrist of the spoken language may permit errors. Although I have reviewed the note, some errors may still exist. Critical Care Critical Care Time Critical Care Time: No
--- NOTE | 2024-04-22 08:45 | PC.NURSE ---
Pt out of room with Rad for x-ray
--- NOTE | 2024-04-22 08:48 | PC.NURSE ---
Pt back in room from x-ray
[2024-04-22 08:56] LABS: Microscopic, Urine URINE MICROSCOPIC (MICROSCOPIC)
[2024-04-22 09:05] VITALS: BP 142/88; PULSE 69; RESP 18; O2SAT 97
[2024-04-22 09:08] LABS: Appearance,Urine CLEAR (Clear); Blood, Urine Negative (Negative); Color,Urine YELLOW (Yellow); Glucose,Urine (UA) Negative (Negative); Ketones,Urine Negative (Negative); Leukocyte Esterase,Urine Negative (Negative); Nitrate,Urine Negative (Negative); Protein,Urine Negative (Negative); Urobilinogen,Urine 0.2 EU/dl (0.2)
--- NOTE | 2024-04-22 09:08 | PC.NURSE ---
I rounded on the pt and took her a warm blanket. no new needs voiced. call means in reach.
[2024-04-22 09:15] LABS: Bilirubin,Urine 1+ (Negative)
[2024-04-22] MEDS: predniSONE 20MG TAB 20 MG PO (09:20)
--- NOTE | 2024-04-22 09:26 | PC.NURSE ---
Dr. Hampton at bedside updating pt and family
[2024-04-22 09:29] LABS: Bacteria,Urine Trace /lpf; WBC,Urine Occasional #/hpf (0-3)
[2024-04-22 09:46] VITALS: BP 139/84; PULSE 81; RESP 16; TEMP 36.6
== END 2024-04-22 09:48 | disposition home or self-care (01) ==
PROVIDERS: Emergency Provider Emergency Medicine; PCP Family Medicine
DX: R10.32 Left lower quadrant pain (principal); E11.65 Type 2 diabetes mellitus with hyperglycemia; Z79.84 Long term (current) use of oral hypoglycemic drugs
CPT/HCPCS: 73502; 81001; 99283

== ENCOUNTER 2024-08-19 09:57 | Outpatient (CLI) | payer MEDICARE, SELFPAY ==
--- NOTE | 2024-08-19 10:01 | XR_ITS ---
FINAL REPORT TECHNIQUE: Chest PA & Lateral CLINICAL HISTORY: no atrial capture/LV impedence out of range. PACEMAKER , PT UNSURE WHEN PACEMAKER WAS PLACED FINDINGS: 2 views of the chest were performed. There is mild cardiomegaly. There is a left subclavian pacemaker. The mediastinum is within normal limits. There is no acute cardiopulmonary process. There are no pleural effusions. There is no pneumothorax. The bony thorax appears intact. IMPRESSION: No acute cardiopulmonary process. Reviewed, Interpreted and Dictated by Ric Aragon MD Transcribed by Peggy Ellis Authenticated and . [facility]
== END 2024-08-19 23:59 | disposition home or self-care (01) ==
LOC: RAD 09:59
PROVIDERS: PCP Pediatrics; Visit Provider Nurse Practitioner Family
DX: R07.9 Chest pain, unspecified (principal); T82.120A Displacement of cardiac electrode, initial encounter
CPT/HCPCS: 71046

== ENCOUNTER 2024-11-20 16:08 | Outpatient (CLI) | payer MEDICARE, MEDICAID, SELFPAY ==
[2024-11-20 16:25] LABS: Basophils # 0.1 K/mm3 (0-0.2); Basophils % 0.4 % (0.1-2.0); Eosinophils # 0.1 Kmm3 (0.0-0.4); Eosinophils % 1.2 % (0.1-12.0); Hematocrit 42.3 % (37.0-47.0); Hemoglobin 14.1 g/dL (12.2-16.2); Lymphocytes # 2.1 K/mm3 (0.7-4.5); Lymphocytes % 18.2 % (10-50); Mean Corpuscular HGB Conc 33.3 g/dL (31.8-35.4); Mean Corpuscular Hemoglobin 29.7 pg (27.0-31.2); Mean Corpuscular Volume 89.1 fl (81-99); Mean Platelet Volume 10.9 fl (7.4-10.4); Monocytes # 0.8 K/mm3 (0.1-1.0); Monocytes % 6.5 % (1.7-9.3); Neutrophils # 8.5 K/mm3 (1.8-7.8); Neutrophils % 73.4 % (37.0-80.0); Nucleated Red Blood Cells # 0 10^3/uL; Nucleated Red Blood Cells % 0 %; Platelet Count 317 K/mm3 (142-424); Red Blood Count 4.75 M/mm3 (4.20-5.40); Red Cell Distribution Width-SD 45.2 fL; White Blood Count 11.6 K/mm3 (4.8-10.8)
[2024-11-20 17:54] LABS: Albumin Level 3.7 g/dl (3.5-5.0)
[2024-11-20 17:55] LABS: Chloride 110 mmol/L (98-107); Potassium 4.6 mmoL/L (3.5-5.1); Sodium 142 mmol/L (136-145)
[2024-11-20 17:57] LABS: Alanine Aminotransferase 21 U/L (12-78); Aspartate Amino Transferase 29 U/L (14-36); Bilirubin,Unconjugated 0.5 mg/dL (0.0-1.1); Blood Urea Nitrogen 18 mg/dl (7-17); Estimated Glomerular Filt Rate 51 ml/min (>60); GFR (African American) 62 ML/MIN (>60)
[2024-11-20 17:58] LABS: Alkaline Phosphatase 131 U/L (38-126); Anion Gap 11.6 mEq/L (5-15); Bilirubin,Indirect 0.5 mg/dL (0.0-0.9); Bilirubin,Total 0.5 mg/dl (0.2-1.3); Calcium 8.8 mg/dl (8.4-10.2); Carbon Dioxide 25 mmol/L (22.0-30.0); Chol/HDL Ratio 3.8 (1-3.5); Cholesterol 184 mg/dl (140-200); Glucose 222 mg/dl (74-100); HDL Cholesterol 49 mg/dl (40-60); Total Protein,Serum 6.9 g/dl (6.3-8.2); Triglycerides 273 mg/dl (30-150); VLDL Cholesterol 55 mg/dL (0-40)
[2024-11-20 18:09] LABS: Direct LDL Cholesterol 101.41 mg/dL (100-129)
[2024-11-20 18:14] LABS: Free T4 (Free Thyroxine) 0.87 ng/dl (0.78-2.19)
[2024-11-20 18:29] LABS: Thyroid Stimulating Hormone 2.04 uIU/mL (0.465-4.68)
== END 2024-11-20 23:59 | disposition home or self-care (01) ==
LOC: LAB 16:09
PROVIDERS: PCP Pediatrics; Visit Provider Nurse Practitioner Family
DX: E78.5 Hyperlipidemia, unspecified (principal); I11.0 Hypertensive heart disease with heart failure; I50.23 Acute on chronic systolic (congestive) heart failure; I25.10 Atherosclerotic heart disease of native coronary artery without angina pectoris
CPT/HCPCS: 36415; 80048; 80061; 80076; 84439; 84443; 85025

== ENCOUNTER 2025-03-01 09:46 | Emergency (ER) | payer MEDICARE, SELFPAY ==
--- OUTSIDE RECORDS SUMMARY | 2025-01-06 14:30 | XMS_ITS | Encounter Summary ---
Author Organization [place] [address] Care Team Providers Care Water Resources Program Director Name Role Phone Arenas, Quinton RODRIGUEZ Unavailable Chuck Morgan MD Primary Care Provider [phone] Reason for Visit * Reason Comments Medication Management Refill Encounter Details Date Type Department Care Team (Latest Contact Info) Description 01/06/2025 2:30 PM EDT Telemedicine [facility] [address] [place] [address] Chuck Morgan MD [address] [place] [address] Chronic bilateral low back pain without sciatica (Primary Dx); Type 2 diabetes mellitus with hyperlipidemia (HCC) Social History Tobacco Use Types Packs/Day Years Used Date Smoking Tobacco: Former Cigarettes 0.5 41 0 02/26/1976 - 03/07/2017 Smokeless Tobacco: Never Comments: working on quittin g Alcohol Use Standard Drinks/Week Comments No 0 (1 standard drink = 0.6 oz pur e alcohol) PHQ-2 Answer Date Recorded PHQ-2 Total Score 0 09/05/2024 Comments No Sex and Gender Information Value Date Recorded Sex Assigned at Not on file Legal Sex Female 7:08 PM EDT Gender Identity Not on file Sexual Orientation Not on file documented as of this encounter Functional Status * Is the person deaf or does he/she have serious difficulty hearing? Answer Date of Assessment Author No 09/05/2024 4:05 PM ERNESTO Sims Swapna judy NELY * Is the person blind or does he/she have serious difficulty seeing even when wearing glasses? Answer Date of Assessment Author No 09/05/2024 4:05 PM Swapna Holt judy NELY * Does this person have serious difficulty walking or climbing stairs? Answer Date of Assessment Author No 09/05/2024 4:05 PM ERNESTO Sims Swapna judy NELY * Does this person have difficulty dressing or bathing? Answer Date of Assessment Author No 09/05/2024 4:05 PM Swapna Holt judy NELY * Because of a physical, mental or emotional condition, does this person have difficulty doing errands alone such as visiting a doctor's office or shopping? Answer Date of Assessment Author No 09/05/2024 4:05 PM ERNESTO Sims Swapna judy NELY documented as of this encounter Mental Status * Because of a physical, mental or emotional condition, does this person have serious difficulty concentrating, remembering or making decisions? Answer Entry Date Author No 09/05/2024 4:05 PM Swapna Holt NELY documented in this encounter Ordered Prescriptions Prescription Sig Dispense Quantity Refills Last Filled Start Date End Date oxyCODONE-acetaminop hen (PERCOCET) 10-325 mg Oral TabletIndications:Ch ronic bilateral low back pain without sciatica Take 1 Tablet by mouth every 4 hours as needed for Chronic Pain (G89.29) for up to 30 days. 120 Tablet 01/06/2025 5 tirzepatide (MOUNJARO) 2.5 mg/0.5 mL SubQ Pen InjectorIndications: Type 2 diabetes mellitus with hyperlipidemia (HCC) Inject 2.5 mg under the skin once a week. 2 mL 01/06/2025 5 documented in this encounter Progress Notes * Chuck Morgan MD - 01/06/2025 11:52 AM EDTAssociated Problem(s): Chronic low back pain As per above. CSA up to date Last resulted compliance panel date: 12/22/2023 Needs updated compliance panel next in-person visit. * Chuck Morgan MD - 01/06/2025 11:40 AM EDT Patient presented today for routine care follow-up through a video visit. Patient has reviewed the terms and conditions of service as part of the registration for today's visit. A video visit does not replace a [id number] exam and further services may be necessary. We are conducting her video visit in a private space and this video visit is being conducted in accordance with state telehealth/video visit regulations. HPI: Chronic pain medication follow up Secondary to low back pain. Wants to change her rybelsus to a shot. Diabetes not under good control. Controlled Substance Common Conditions Interval Assessment: Chronic Pain: Reason for visit: ChronicPain Follow-Up - Shawnee Muniz is here for regular follow-up for chronic pain. She reports that his pain is stable and unchanged since last evaluation. Shawnee Muniz has not followed up with another provider since last evaluation for this issue. The location(s) of the pain include: low back. She describes the quality of pain as: achy. When thepain is most severe, she rates the pain as 8 / 10. When the pain is the least severe, she rates thepain as 3 / 10. 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 She has been compliant with elements of the controlled substance contract and with recommendations outlined during last assessment. Doing well, No SE's with medication. No evidence of abuse/diversion. Pt informed and aware of medication's potential for abuse/dependence. Functional goal/goals of treatment: continued management of chronic pain. Review of Systems Musculoskeletal: Positive for back pain. Exam: Constitutional: NAD, appropriately groomed. Appears comfortable. HENT: No gross deformities. Voice normal. No facial swelling noted. Eyes: Extra occular movements grossly intact. Visible portions of the eyes appear normal. No redness or discharge visible via casual video inspection. Cardiopulmonary: Does not appear in cardiopulmonary distress. Easy respirations w/o labored breathing. No audible gross wheezing or breathlessness. Neuro: Alert and oriented. Conversational. No gross deficits or facial droop appreciated on video evaluation. Psych: Appropriate mood and affect. Normal conversation and thought content. Assessment Diagnoses and all orders for this visit: Chronic bilateral low back pain without sciatica Overview: On chronic narcotics through Dr. Vieyra's office until they were closed down. Continues on percocet QID CSA 08/06/2021 Assessment & Plan: As per above. CSA up to date Last resulted compliance panel date: 12/22/2023 Needs updated compliance panel next in-person visit. Type 2 diabetes mellitus with hyperlipidemia (HCC) (Chronic) - tirzepatide (MOUNJARO) 2.5 mg/0.5 mL SubQ Pen Injector; Inject 2.5 mg under the skin once a week.Dispense: 2 mL; Refill: 0 Stop rybelsus when gets the shot. documented in this encounter Plan of Treatment Not on file documented as of this encounter Goals Goal Patient Goal Type Associated Problems Recent Progress Patient-Stated? Author Blood Pressure < 140/90 Blood Pressure 134/76(2024 4:07 PM EST) No Chuck Morgan MD Eat better, exercise, reach an ideal body weight General No Devi Frederick, RMA BMI (Calculated) < 30 General 38.5(09/05/19 25 4:07 PM EST) No Chuck Morgan MD Stay Tobacco Free Lifestyle No Devi Frederick, RMA HEMOGLOBIN A1C < 7.0 Result Component 8.4( 3 11:01 AM EDT) No Chuck Morgan MD documented as of this encounter Visit Diagnoses Diagnosis Chronic bilateral low back pain without sciatica- Primary Type 2 diabetes mellitus with hyperlipidemia (HCC) documented in this encounter Discontinued Medications Medication Sig Discontinue Reason Start Date End Da te semaglutide (RYBELSUS) 14 mg Oral Tablet Take 1 Tablet by mouth daily for 180 days. Cancelled by 09/17/2024 01/06/2025 oxyCODONE-acetaminophen (PERCOCET) 10-325 mg Oral TabletIndications:Chroni c bilateral low back pain without sciatica Take 1 Tablet by mouth every 4 hours as needed for Chronic Pain (G89.29) for up to 7 days. Reorder 01/03/2025 01/06/2025 documented as of this encounter Care Teams Water Resources Program Director Relationship Specialty Start Date End Date Chuck Morgan MD [address] [place] [address] [place] [id number] PCP - General Internal Medicine 06/09/16 Quinton Arenas MD [address] [place] [address] [place] [address] Physician Internal Medicine-Cardiovascular Disease 04/25/13 documented as of this encounter
[2025-03-01 09:52] VITALS: BP 159/85; PULSE 92; RESP 20; TEMP 36.8; O2SAT 97; BMI 35.5
--- OUTSIDE RECORDS SUMMARY | 2025-03-01 09:56 | XMS_ITS | Encounter Summary ---
Author Organization [place] [address] Care Team Providers Care Rug Sizer Name Role Phone ArenasQuinton MD Unavailable Chuck Morgan MD Primary Care Provider [phone] Reason for Visit * Reason Onset Date Comments Symptoms (Only Use If Pt Pus hes Back On Scheduling A Visit) 02/06/2025 Pt called asking for abx to be called in without her having to come in. Please advise. Encounter Details Date Type Department Care Team (Late st Contact Info) Description 02/06/2025 Telephone [facility] [place] [facility] [place] [address] Chuck Morgan MD [address] [place] [address] Symptoms (Only Use If Pt Pushes Back On Scheduling A Visit) (Pt called asking for abx to be called in without her having to come in. Please advise.) Social History Tobacco Use Types Packs/Day Years [...] Author No 09/05/2024 4:05 PM Swapna Holt CCMA * Is the person blind or does he/she have serious difficulty seeing even when wearing glasses? Answer Date of Assessment Author No 09/05/2024 4:05 PM Swapna Holt CCMA * Does this person have serious difficulty walking or climbing stairs? Answer Date of Assessment Author No 09/05/2024 4:05 PM Swapna Holt CCMA * Does this person have difficulty dressing or bathing? Answer Date of Assessment Author No 09/05/2024 4:05 PM Swapna Holt CCMA * Because of a physical, mental or emotional condition, does this person have difficulty doing errands alone such as visiting a doctor's office or shopping? Answer Date of Assessment Author No 09/05/2024 4:05 PM Swapna Holt CCMA documented as of this encounter Mental Status * Because of a physical, mental or emotional condition, does this person have serious difficulty concentrating, remembering or making decisions? Answer Entry Date Author No 09/05/2024 4:05 PM Swapna Holt CCMA documented in this encounter Ordered Prescriptions Prescription Sig Dispense Quantity Refills Last Filled Start Date End Date sulfamethoxazole-t rimethoprim (BACTRIM DS) 800-160 mg Oral Tablet Take 1 Tablet by mouth every 12 hours for 10 days. 20 Tablet 02/06/2025 02/16/2025 documented in this encounter Miscellaneous Notes * Telephone Encounter - Roxann Sims CCMA - 02/06/2025 4:48 PM EDT Pt aware meds called in * Telephone Encounter - Cora Ambrosio - 02/06/2025 4:41 PM EDT Select the most appropriate reason for this telephone message: Symptoms Call Who is reporting the symptoms: Patient What symptom(s) is the patient experiencing: Slightly sore throat x 1-2 days Lower back pain in kidney area x 2-3 days How long have symptoms been present: 1-3 day(s) ago between the two Has the patient been seen for this:No If no, was an appointment/E-Visit offered/suggested? Yes, advised pt that typically an appt is needed but she has no way to come in. She stated that her car is in the shop and she's unable to have a ride get her here. She would have someone go pick and shovel worker her meds Has the patient tried anything to relieve the symptoms and did it help: No If pain, what level on scale 1-10 (10 being the greatest): 10- I'm very uncomfortable with it Desired Outcome: RX Pharmacy & Location:[id number] [place] [address] [address] [facility] [phone] Return Method of Communication: Phone Call Was patient transferred to Nurse Triage for additional help? N/A Additional Information: please advise if something can be called in without her having to come in. documented in this encounter Plan of Treatment [...] MD Stay Tobacco Free Lifestyle No Devi Frederick RMA HEMOGLOBIN A1C < 7.0 Result Component 8.4( 3 11:01 AM EDT) No Chuck Morgan MD documented as of this encounter Visit Diagnoses Not on filedocumented in this encounter Care Teams Rug Sizer Relationship Specialty Start Date End Date Chuck Morgan MD [address] [place], [place] [address] PCP - General Internal Medicine 06/09/16 Quinton Arenas MD [address] [place] [address] [place] [id number] Physician Internal Medicine-Cardiovascular Disease 04/25/13 documented as of this encounter
--- OUTSIDE RECORDS SUMMARY | 2025-03-01 09:56 | XMS_ITS | Encounter Summary ---
Author Organization [place] [address] Care Team Providers Care Laser Technician Name Role Phone Arenas, Quinton RODRIGUEZ Unavailable Chuck Morgan MD Primary Care Provider [phone] Reason for Visit * Reason Onset Date Comments Refill 02/27/2025 sucralfate Encounter Details Date Type Department Care Team (Late st Contact Info) Description 02/27/2025 Telephone [facility] [address] [place] [address] Chuck Morgan MD [address] [place] [address] Refill (sucralfate ) Social History Tobacco Use Types Packs/Day Years [...] Assessment Author No 09/05/2024 4:05 PM Swapna Holt, NELY * Is the person blind or does he/she have serious difficulty seeing even when wearing glasses? Answer Date of Assessment Author No 09/05/2024 4:05 PM Swapna Holt, THAOA * Does this person have serious difficulty walking or climbing stairs? Answer Date of Assessment Author No 09/05/2024 4:05 PM Swapna Holt, THAOA * Does this person have difficulty dressing or bathing? Answer Date of Assessment Author No 09/05/2024 4:05 PM Swapna Holt, THAOA * Because of a physical, mental or emotional condition, does this person have difficulty doing errands alone such as visiting a doctor's office or shopping? Answer Date of Assessment Author No 09/05/2024 4:05 PM Swapna Holt, NELY documented as of this encounter Mental Status * Because of a physical, mental or emotional condition, does this person have serious difficulty concentrating, remembering or making decisions? Answer Entry Date Author No 09/05/2024 4:05 PM Swapna Holt, NELY documented in this encounter Ordered Prescriptions Prescription Sig Dispense Quantity Refills Last Filled Start Date End Date sucralfate (CARAFATE) 100 mg/mL Oral SuspensionIndicatio ns:Gastroesophageal reflux disease without esophagitis TAKE 10 ML BY MOUTH 3 TIMES DAILY (BEFORE MEALS). 420 mL 6 02/27/2025 documented in this encounter Miscellaneous Notes * Telephone Encounter - Anabelle Kern MA - 02/27/2025 10:51 AM EDT Ok to send this in? * Telephone Encounter - Chuck Pleitze - 02/27/2025 10:49 AM EDT Select the most appropriate reason for this telephone message: Medication Refill Who is requesting the refill: Patient Medication(s)Name/Dosage/Frequency: Disp Refills Start End sucralfate (CARAFATE) 100 mg/mL Oral Suspension 420 mL 6 01/03/2023 -- Sig: TAKE 10 ML BY MOUTH 3 TIMES DAILY (BEFORE MEALS). Did patient contact the pharmacy first: No How many days left on hand: 0 Future appt date w/ prescribing provider: none Pharmacy & Location: [facility] Method of Communication: Phone Call Additional Information: did not pend documented in this encounter Plan of Treatment Not on file documented as of this encounter Goals Goal Patient Goal Type Associated Problems Recent Progress Patient-Stated? Author Blood Pressure < 140/90 Blood Pressure 134/76(2024 4:07 PM EST) No Chuck Morgan MD Eat better, exercise, reach an ideal body weight General No Devi Frederick, RMA BMI (Calculated) < 30 General 38.5(09/05/19 4:07 PM EST) No Chuck Morgan MD Stay Tobacco Free Lifestyle No Devi Frederick, RMA HEMOGLOBIN A1C < 7.0 Result Component 8.4( 11:01 AM EDT) No Chuck Morgan MD documented as of this encounter Visit Diagnoses Diagnosis Gastroesophageal reflux disease without esophagitis Esophageal reflux documented in this encounter Discontinued Medications Medication Sig Discontinue Reason Start Date End Da te sucralfate (CARAFATE) 100 mg/mL Oral SuspensionIndications:Gas troesophageal reflux disease without esophagitis TAKE 10 ML BY MOUTH 3 TIMES DAILY (BEFORE MEALS). Reorder 01/03/2023 02/27/2025 documented as of this encounter Care Teams Laser Technician Relationship Specialty Start Date End Date Chuck Morgan MD [address] [place] [id number] PCP - General Internal Medicine 06/09/16 Quinton Arenas MD [address] [place] [address] [place] [id number] Physician Internal Medicine-Cardiovascular Disease 04/25/13 documented as of this encounter
--- OUTSIDE RECORDS SUMMARY | 2025-03-01 09:56 | XMS_ITS | Clinical Summary ---
Author Organization [employer] [facility] Address [address] [place] [address] Phone Care Team Providers Care Paste Worker Name Role Phone Karmen Gordon MD Primary Care Physician [ ] Conditions or Problems Problem Name Problem Code Onset Date Status Entry Date Provider Comment Standard Description Annotate Rectal bleed 46281866 (SNOMED CT) 10/12 Active 10/12 Karmen Gordon MD Rectal hemorrhage Hyperglycemi a 26070541 (SNOMED CT) 10/12 Inactive 10/12 Karmen Gordon MD Hyperglycemia CHEST PAIN NOS 16843571 (SNOMED CT) 02/27 Inactive 02/27 Karmen Gordon MD Chest pain S/P hysterectomy 705150012 (SNOMED CT) 01/05 Active 01/05 Aparna Betancourt BUTTON BRADDER Hysterectomy PEDAL EDEMA 550330172 (SNOMED CT) 03/18 Active 03/18 Karmen Gordon MD Edema of foot SCABIES 670060085 (SNOMED CT) 03/18 Inactive 03/18 Karmen Gordon MD Infestation by Sarcoptes scabiei anna hominis UTI 27678735 (SNOMED CT) 03/18 Inactive 03/18 Karmen Gordon MD Urinary tract infectious disease RASH 442593518 (SNOMED CT) 10/25 Resolved 10/25 Karmen Gordon MD Eruption CHOLELITHIAS IS 011906965 (SNOMED CT) 08/06 Active 08/06 Karmen Gordon MD Biliary calculus CAD 59131841 (SNOMED CT) 04/22 Active 04/22 Karmen Gordon MD Coronary arteriosclerosi s LEUKOCYTOSIS 039139355 (SNOMED CT) 10/25 Resolved 10/25 Karmen Gordon MD Leukocytosis LEUKOCYTOSIS 687129101 (SNOMED CT) 10/25 Removed 10/25 Karmen Gordon MD Leukocytosis RASH 737305154 (SNOMED CT) 10/25 Removed 10/25 Karmen Gordon MD Eruption DYSPHAGIA UNSPECIFIED R13.10 (ICD-10-CM ) 10/25 Active 10/25 Karmen Gordon MD Dysphagia, unspecified CARPAL TUNNEL 36093813 (SNOMED CT) 08/14 Active 08/14 Karmen Gordon MD Carpal tunnel syndrome SKIN TAG 153782783 (SNOMED CT) 04/05 Resolved 04/05 Karmen Gordon MD Skin tag SKIN TAG 787615279 (SNOMED CT) 04/05 Removed 04/05 Karmen Gordon MD Skin tag LIVER FUNCTION TESTS ABNORMAL 297628997 (SNOMED CT) 10/01 Resolved 10/01 Karmen Gordon MD Liver function tests outside reference range LIVER FUNCTION TESTS ABNORMAL 636936730 (SNOMED CT) 10/01 Removed 10/01 Karmen Gordon MD Liver function tests outside reference range VITAMIN D DEFICIENCY 63649552 (SNOMED CT) 10/01 Active 10/01 Karmen Gordon MD Vitamin D deficiency CELLULITIS NOS 683410794 (SNOMED CT) 09/28 Inactive 09/28 Karmen Gordon MD Cellulitis ARTHRITIS NOS M12.9 (ICD-10-CM ) 09/28 Active 09/28 Karmen Gordon MD Arthropathy, unspecified CHEST PAIN NOS 20461866 (SNOMED CT) 08/12 Resolved 08/12 Karmen Gordon MD Chest pain DYSPHAGIA UNSPECIFIED R13.10 (ICD-10-CM ) 09/28 Resolved 09/28 Karmen Gordon MD Dysphagia, unspecified COPD 26993365 (SNOMED CT) 02/17 Active 02/17 Karmen Gordon MD Chronic obstructive pulmonary disease BACK PAIN, LUMBAR, CHRONIC 157622458 (SNOMED CT) 08/12 Correction 08/12 Karmen Gordon MD Chronic low back pain BACK PAIN LUMBA; CHRONIC M54.5 (ICD-10-CM ) 02/17 Active 02/17 Karmen Gordon MD Low back pain OBESITY NOS 359736005 (SNOMED CT) 09/28 Active 09/28 Karmen Gordon MD Obesity DYSPHAGIA UNSPECIFIED R13.10 (ICD-10-CM ) 09/28 Removed 09/28 Karmen Gordon MD Dysphagia, unspecified GERD 162442863 (SNOMED CT) 09/28 Active 09/28 Karmen Gordon MD Gastroesophagea l reflux disease SCHATZKI'S RING 91386158 (SNOMED CT) 08/12 Active 08/12 Karmen Gordon MD Terminal esophageal web BACK PAIN, LUMBAR, CHRONIC 115218844 (SNOMED CT) 08/12 Removed 08/12 Karmen Gordon MD Chronic low back pain SLEEP APNEA 97456631 (SNOMED CT) 08/12 Active 08/12 Karmen Gordon MD Sleep apnea BIPOLAR AFFECTIVE F31.9 (ICD-10-CM ) 08/12 Active 08/12 Karmen Gordon MD Bipolar disorder, unspecified TOBACCO USE DIS F17.200 (ICD-10-CM ) 08/12 Active 08/12 Karmen Gordon MD Nicotine dependence, unspecified, uncomplicated CHEST PAIN NOS 28958176 (SNOMED CT) 08/12 Removed 08/12 Karmen Gordon MD Chest pain Medications Medication Instructions Start Date Stop Date Generic Name NDC Provider DIFLUCAN 150 MG TABS TAKE 1 TABLET BY MOUTH 1 TIME A DAY ONCE AND REPEAT IN 7 DAYS IF SYMPTOMS RETURN OR DO NOT RESOLVE 10/28 FLUCONAZOLE 72564409967 Karmen Gordon MD VENTOLIN HFA 108 (90 Base) MCG/ACT AERS TAKE 2 INHALATIONS 4 TIMES A DAY NEEDED FOR WHEEZING 02/17 ALBUTEROL SULFATE 39884060986 Karmen Gordon MD VITAMIN D3 50 MCG (2000 UT) CAPS 1 tablet daily 10/01 CHOLECALCIFEROL 73339543016 Karmen MORLEYDERM CQ 14 MG/24HR PT24 1 PATCH DAILY 04/22 NICOTINE 43161294623 Karmen Gordon MD IMITREX 100 MG TABS 1 TAB AT ONSET OF HEADACHE. MAY REPEAT IF HEADACHE PERSISTS IN 2 HOURS. MAX 2 TABS DAILY. 02/20 SUMATRIPTAN SUCCINATE 53523115826 Karmen Gordon MD ZOLOFT 50 MG TABS 1 TAB DAILY 09/28 SERTRALINE HCL 31087916253 Karmen Gordon MD PERMETHRIN 5 % CREA APPLY HEAD TO TOE, LEAVE ON 12-14 HOURS AND THEN WASH OFF 03/18 PERMETHRIN 04889923423 Karmen Gordon MD PERMETHRIN 5 % CREA APPLY HEAD TO TOE, LEAVE ON 12-14 HOURS AND THEN WASH OFF 03/18 PERMETHRIN 22118920748 Karmen Gordon MD SULFAMETHOXAZOLE-TRI METHOPRIM 800-160 MG TABS Take 1 tablet by mouth twice a day 03/18 SULFAMETHOXAZOLE-TRI METHOPRIM 80601766722 Karmen Gordon MD ADVAIR DISKUS 100-50 MCG/DOSE INHALATION AEROSOL POWDER BREATH ACTIVATED Take 1 inhalation twice a day 08/06 FLUTICASONE-SALMETER OL 36585364397 Karmen Gordon MD PERCOCET 7.5-[address] BRUCE 08/06 OXYCODONE-ACETAMINOP HEN 57035678946 Karmen Gordon MD IMITREX 100 MG TABS 1 TAB AT ONSET OF HEADACHE. MAY REPEAT IF HEADACHE PERSISTS IN 2 HOURS. MAX 2 TABS DAILY. 02/20 SUMATRIPTAN SUCCINATE 46337928770 Karmen MORLEYDERM CQ 14 MG/24HR PT24 1 PATCH DAILY 04/22 NICOTINE 08344976115 Karmen Gordon MD ASPIR-LOW 81 MG ORAL TABLET DELAYED RELEASE 1 DAILY 04/22 ASPIRIN 52916860175 Karmen Gordon MD BETAMETHASONE VALERATE 0.1 % CREA APPLY TO AFFECTED AREA TWICE A DAY 01/28 BETAMETHASONE VALERATE 76824148802 Karmen Gordon MD NEXIUM 40 MG CPDR take 1 tab po qd 08/30 ESOMEPRAZOLE MAGNESIUM 85568400399 Karmen Gordon MD TRIAMCINOLONE ACETONIDE 0.1 % CREA cutaneous twice a day TO RASH 10/25 TRIAMCINOLONE ACETONIDE 22046889495 Karmen Gordon MD *CARPAL TUNNEL WRIST SPLINT BILATERAL WRISTS 02/20 *CARPAL TUNNEL WRIST SPLINT Karmen Gordon MD PERCOCET 5-325 MG TABS 1 TAB 3 TIMES DAILY FOR 5 DAYS THEN 2 TIMES A DAY FOR 5 DAYS THEN 1 DAILY FOR 5 DAYS THEN STOP 08/14 OXYCODONE-ACETAMINOP HEN 41255143598 Karmen Gordon MD PERCOCET 5-325 MG TABS 1 TAB 3 TIMES DAILY FOR 5 DAYS THEN 2 TIMES A DAY FOR 5 DAYS THEN 1 DAILY FOR 5 DAYS THEN STOP 08/14 OXYCODONE-ACETAMINOP HEN 88573051092 Karmen Gordon MD *CARPAL TUNNEL WRIST SPLINT BILATERAL WRISTS 02/20 *CARPAL TUNNEL WRIST SPLINT Karmen Gordon MD IMITREX 100 MG TABS 1 TAB AT ONSET OF HEADACHE. MAY REPEAT IF HEADACHE PERSISTS IN 2 HOURS. MAX 2 TABS DAILY. 02/20 SUMATRIPTAN SUCCINATE 86148362976 Karmen Gordon MD TRAZODONE HCL 50 MG TABS Take 1 tablet by mouth every night at bedtime for insokmnia 02/20 TRAZODONE HCL 08041309445 Karmen Gordon MD VITAMIN D 50 MCG (1999 UT) TABS Take one a day 10/01 CHOLECALCIFEROL 66201620210 Karmen Gordon MD SULFAMETHOXAZOLE-TRI METHOPRIM 800-160 MG TABS Take 1 tablet by mouth twice a day 09/28 SULFAMETHOXAZOLE-TRI METHOPRIM 62979194809 Karmen Gordon MD FUROSEMIDE 40 MG TABS Take 1 tablet by mouth once a day 09/28 FUROSEMIDE 32532792005 Karmen Gordon MD PERCOCET 5-325 MG TABS 1 TAB 3 TIMES DAILY NEEDED FOR ARTHRITIS 09/28 OXYCODONE-ACETAMINOP HEN 21475707396 Karmen Gordon MD PRILOSEC 20 MG ORAL CAPSULE DELAYED RELEASE 1 DAILY FOR STOMACH IN ADDITION TO NEXIUM PER DR ZABALA 09/28 OMEPRAZOLE 01048385981 Karmen Gordon MD ZOLOFT 50 MG TABS 1 TAB DAILY 09/28 SERTRALINE HCL 21452556086 Karmen Gordon MD PERCOCET 5-325 MG TABS 1 TAB 4 TIMES DAILY NEEDED FOR PAIN 09/28 OXYCODONE-ACETAMINOP HEN 68904132928 Karmen Gordon MD CHANTIX STARTING MONTH KISHA 0.5 MG X 11 & 1 MG X 42 ORAL TABLET DIRECTED 02/17 VARENICLINE TARTRATE 00571973956 Karmen Gordon MD SYMBICORT 80-4.5 MCG/ACT AERO Take 2 inhalations twice a day 02/24 BUDESONIDE-FORMOTERO L FUMARATE 12272741398 Karmen Gordon MD AZMACORT 02/17 AZMACORT Karmen Gordon MD ADIPEX-P 37.5 MG TABS 1 DAILY 09/28 PHENTERMINE HCL 05521962305 Karmen Gordon MD CHANTIX STARTING MONTH KISHA 0.5 MG X 11 & 1 MG X 42 ORAL TABLET DIRECTED 02/17 VARENICLINE TARTRATE 41549136377 Karmen Gordon MD PROAIR HFA 108 (90 Base) MCG/ACT INHALATION AEROSOL SOLUTION Take 2 inhalations every 4 hours as needed 02/17 ALBUTEROL SULFATE 04906090174 Karmen Gordon MD HYDROCHLOROTHIAZIDE 25 MG TABS Take 1 tablet by mouth once a day NEEDED FOR FLUID 02/17 HYDROCHLOROTHIAZIDE 33542542379 Karmen Gordon MD PERCOCET 5-325 MG TABS 1 TAB 4 TIMES DAILY NEEDED FOR PAIN 09/28 OXYCODONE-ACETAMINOP HEN 75913438832 Karmen Gordon MD ADIPEX-P 37.5 MG TABS 1 DAILY 09/28 PHENTERMINE HCL 08336628849 Karmen Gordon MD VENLAFAXINE HCL ER 75 MG [id number] take 1 tab po qd 08/30 VENLAFAXINE HCL 66036129667 Karmen Gordon MD NEXIUM 40 MG CPDR take 1 tab po qd 08/30 ESOMEPRAZOLE MAGNESIUM 67354816488 Karmen Gordon MD Medications Administered No information available. Allergies, Adverse Reactions, Alerts Observed no known allergies at Results Date Name Value Unit Range Flag Description Lab Report: LIPID PANEL WITH REFLEX TO DIRECT LDL, COMPREHENSIVE METABOL ... TSHREFLX FT4 2.46 m[iU]/L N TSH (thy roid stimulating hormone) with reflex FT4 Lab Report: Hep Bs Ag, Hep C Ab, Hepatic Pa HEP C AB Negative Negative Hepatitis C virus Ab [Presence] in Serum by Immunoblot HBSAG Negative Negative Hepatitis B virus surface Ag [Presence] in Serum by Radioimmunoassay (MINH) Lab Report: CBC (INCLUDES DI FF/PLT) BASO % MANU 0.2 % N basophils as percent of blood leukocytes, manual count EOS % MANU 1.0 % N eosinophil s as percent of blood leukocytes, manual count MONOCYTE % 6.7 % N Monocytes/ 100 leukocytes in Blood by Automated count LYMPH% P BLD 30.2 % N lymphocy jovana as percent of blood leukocytes PMN % 61.9 % N Neutrophils/1 00 leukocytes in Blood by Automated count ABS BASOS 23 {Cells} /uL 0-200 N Basophils [#/volume] in Blood ABS EOS 117 {Cells} /uL 15-500 N Eosinophils [#/volume] in Blood ABS MONOS 784 {Cells} /uL 200-950 N Monocytes [#/volume] in Blood ABSLYMPHCT 3533 {Cells} /uL 850-3900 N Lymphocytes [#/volume] in Blood ABS NEUTROPH 7242 CELLS/UL 10*3/uL 3365-7681 N Neutrophils [#/volume] in Blood PLATELETK/UL 332 THOUSAND/UL 10*3/uL 140-400 N platelet count RDW 15.1 % 11.0-15.0 H Erythrocyte distribution width [Ratio] by Automated count OL-MCHC 33.3 g/dL 32.0-36.0 N mean corpus cular hemoglobin concentration, rbc MCH 30.3 pg 27.0-33.0 N MCH [Entiti c mass] by Automated count MCV 91.1 fL 80.0-100.0 N MCV [Entit ic volume] by Automated count HCT 43.5 % 35.0-45.0 N Hematocrit [Volume Fraction] of Blood by Automated count HGB 14.4 g/dL 11.7-15.5 N Hemoglobin [Mass/volume] in Blood RBC M/UL 4.77 MILLION/UL 10*6/uL 3.80-5.10 N red blood count WBC CT BLOOD 11.7 10*3/uL 3.8-10.8 H leukocy te count, blood Lab Report: COPY(IES) SENT T O:, LIPID PANEL WITH REFLEX TO DIRECT LDL, C ... TRIGLYCRDES 160 mg/dL <150 H Triglycer calvin [Mass/volume] in Serum or Plasma - mg/dL Lab Report: HEPATIC FUNCTION PANEL attn [facility] BILI DIRECT 0.1 mg/dL < OR = 0.2 N Biliru bin.direct [Mass/volume] in Serum or Plasma Office Visit: FU appt/ RM GLUCOSE, URN negative Glucose [Mass/volume] in Urine by Test strip BILIRUBIN UR negative Bilirub in.total [Presence] in Urine by Test strip KETONES URN negative Ketones [Mass/volume] in Urine by Test strip SPEC GR URIN 1.020 Specific gravity of Urine by Test strip BLOOD UR DIP 2+ blood in urine (hemoglobin) by dipstick PH URINE 5.5 pH of Urine by Test strip PROTEIN, URN trace protein, urine, semiquantitative (dipstick) UROBILINOGEN 0.2 Urobilin ogen [Presence] in Urine by Test strip NITRITE URN negative Nitrite [Presence] in Urine by Test strip WBC DIPSTK U trace Leukocyt e esterase [Presence] in Urine by Test strip Office Visit: F/U CHRONIC ME DS rm 18 BG RANDOM 119 mg/dL Glucose [Mass/volume] in Blood Lab Report: LIPID PANEL WITH REFLEX TO DIRECT LDL, LIPID PANEL WITH REFL ... HGBA1C 6.2 % OF TOTAL HGB % <5.7 H Hemoglobin A1c/Hemoglobin, total in Blood - % VIT D 25-OH 9 ng/mL 30-100 L 25-Hydrox ycalcifero l [Mass/volume] in Serum or Plasma SGPT (ALT) 29 U/L 6-29 N Alanine aminotransferase [Enzymatic activity/volume] in Serum or Plasma SGOT (AST) 29 U/L 10-35 N Aspartate aminotransferase [Enzymatic activity/volume] in Serum or Plasma ALK PHOS 121 U/L 33-130 N Alkaline phosphatase [Enzymatic activity/volume] in Blood BILI TOTAL 0.4 mg/dL 0.2-1.2 N Bilirubin. total [Mass/volume] in Serum or Plasma A/G RATIO 1.1 (calc) 1.0-2.5 N Albumin/ Globulin [Mass Ratio] in Serum or Plasma GLOBULIN TOT 3.6 G/DL (CALC) g/dL 1.9-3.7 N Globulin [Mass/volume] in Serum ALBUMIN EOP 3.8 g/dL 3.6-5.1 N Albumin [Mass/volume] in Serum or Plasma by Electrophoresis PROTEIN, TOT 7.4 g/dL 6.1-8.1 N Protein [Mass/volume] in Serum or Plasma CALCIUM 9.2 mg/dL 8.6-10.4 N Calcium [Moles/volume] in Serum or Plasma CO2 26 mmol/L 19-30 N Carbon dioxid e, total [Moles/volume] in Venous blood CHLORIDE BLD 107 mmol/L 98-110 N chloride , blood POTASSIUM 4.4 mmol/L 3.5-5.3 N Potassium [Moles/volume] in Serum or Plasma SODIUM 139 mmol/L 135-146 N Sodium [Moles/volume] in Serum or Plasma BUN/CREAT NOT APPLICABLE (calc) 6-22 Urea nitrogen/Creatinine [Mass Ratio] in Serum or Plasma EGFR IF AFA 111 mL/min/ 1.73m2 >OR = 60 N Glomerular filtration rate/1.73 sq M.predicted among blacks [Volume Rate/Area] in Serum, Plasma or Blood by Creatinine-based formula (MDRD) EGFR 96 mL/min/ 1.73m2 >OR = 60 N Glomerular filtration rate/1.73 sq M.predicted [Volume Rate/Area] in Serum, Plasma or Blood by Creatinine-based formula (MDRD) CREATININE 0.73 mg/dL 0.50-1.05 N Creatini ne [Mass/volume] in Serum or Plasma BUN 15 mg/dL 7-25 N Urea nitrogen [Mass/volume] in Serum or Plasma GLUCOSE SER 124 mg/dL 65-99 H Glucose [Mass/volume] in Serum or Plasma NON-HDL CHOL 147 MG/DL (CALC) mg/dL N cholesterol, non-HDL, total CHOL/HDL % 4.9 (calc) < OR = 5.0 N chol esterol/HDL ratio, serum, percent LDL 91 MG/DL (CALC) mg/dL <130 N Cholesterol in L DL [Mass/volume] in Serum or Plasma - mg/dL TRIGLYC TOT 282 mg/dL <150 H Triglycer calvin [Mass/volume] in Serum or Plasma - mg/dL HDL 38 mg/dL >OR = 46 L Cholesterol in HDL [Mass/volume] in Serum or Plasma - mg/dL CHOLESTEROL 185 mg/dL 125-200 N Cholester ol [Mass/volume] in Serum or Plasma - mg/dL Plan of Care Type Date Detail Referral Gastroenterology Referral [facility], [address], [place], [address] Referral General Surgery [facility]erral [facility] 1 [facility] General [facility], [address], [place], [address] Referral General Surgery Referral [facility] 1 [facility] General [facility], [address], [place], [address] Referral excluded fr om report: Referral Gastroenterology Referral [facility], [address], [place], [address] Referral Gastroenterology Referral [facility], [address], [place], [address] Referral excluded fr om report: Referral Pain Management Neuroscience J Nadia Ta M.D. Nadia, [address] [facility], [place], [address] Referral excluded fr om report: Referral Orthopedic Refer [facility], [address] [place] [address], [address] Referral excluded fr om report: Referral [facility]NT [facility], [address] [place] [address], [address] Referral ENT [facility], [address], [address] Referral excluded fr om report: Referral Orthopedic Refer [facility], [address] [place] [address], [place], [address] Referral Pain Management Neuroscience J Nadia Ta M.D. Nadia, [address] [facility], [place], [address] Referral Orthopaedic Refe rral [facility] [place], [address] [place], [address] Referral Gastroenterology Referral [facility] Referral Gastroenterology Referral [facility] Chet Damon M.D. Amy, [address], [place], [address] Referral Gastroenterology Referral [facility] Chet Damon M.D. Amy, [address], [place], [address] Referral excluded fr om report: Referral Gastroenterology Referral [facility], [address], [place], [address] Referral excluded fr om report: Referral Gastroenterology Referral [facility], [address], [place], [address] Pending order CMP Pending order Lipid Panel Pending order HGBA1c Pending order Vitamin D 25 Hyd sheldon Pending order Accucheck 81834 Pending order Medication Recon ciliation Pending order ECG 12+ leads; w read & rpt (Don't use for Mcare) 58625 Pending order SNOMED-CT: 96472 [id number] Current Medications Documented Pending order Urine Dip Auto 8 1003 Pending order Hepatitic Functi on Panel Pending order Immunization(s) Ordered Pending order Flu 3 yrs and ol bruno Pending order IMADM >18YR IM R OUTE 1ST VAC/TOXOID Pending order CMP Pending order Lipid Panel Pending order Immunization(s) Ordered Pending order Td age 7 yrs or older Pending order IMADM >18YR IM R OUTE 1ST VAC/TOXOID Pending order IMADM >18YR IM R OUTE EA ADDL VAC/TOXOID Pending order CBC with diff Pending order CBC with diff Pending order CBC with diff Pending order CMP Pending order Immunization(s) Ordered Pending order Flu 3 yrs and ol bruno Pending order IMADM >18YR IM R OUTE 1ST VAC/TOXOID Pending order Hep C Ab Pending order Hep B Surf AG HB sAg Pending order Hepatitic Functi on Panel Pending order CMP Pending order Lipid Panel Pending order CBC with diff Pending order TSH reflex to fr ee T-4 Pending order Vitamin D 25 Hyd sheldon Pending order Exercise Testing w Exercise Echo Pending order Exercise Testing w Exercise Echo Pending Order exclud ed from report: Patient education Patient Educat ion Given Procedures Code Procedure Name Date Entry Date [address] [facility] # CMP 5 CPT-44065 Accucheck 93826 [id number] Medication Reconciliation [facility] [place] [address] [facility] # Lipid Panel 5 496 [facility] # HGBA1c 84338 [facility] # Vitamin D 25 Hydroxy 2 [facility]-[id number] SNOMED-CT: [id number] 563907 Current Medications Documented CPT-83650 ECG 12+ leads; w timothy d & rpt (Don't use for Mcare) 87898 CPT-72724 Urine Dip Auto 90009 GEN SX PRE SX General Surgery Refe rral [facility] General Surgery # 1 Janice [address] [facility] # Hepatitic Function Panel IMMORDER Immunization(s) Ordered 2013 CPT-65517 Flu 3 yrs and older CPT-64759 IMADM >18YR IM ROUTE 1ST VAC/TOXOID 08/06 [facility] G[facility] Referral [facility] Neuroscience J Nadia 2012 CPT-25528 Td age 7 yrs or older 04/22 CPT-80581 IMADM >18YR IM ROUTE 1ST VAC/TOXOID 04/22 IMMORDER Immunization(s) Ordered 2012 CPT-38302 IMADM >18YR IM ROUTE EA ADDL VAC/TOXOID 2 46034 [facility] # CMP 3 33127 [facility] # Lipid Panel 3 CPT-30648 Arthrocentesis Small Joint or Bursa ORTHO COMMON [facility]opedic Ref[facility] 20 11/01/28 [facility] # CBC with diff 4 6399 [facility] # CBC with diff 2 6399 [facility] # CBC with diff 8 87164 [facility] # CMP 8 IMMORDER Immunization(s) Ordered 2011 CPT-87372 IMADM >18YR IM ROUTE 1ST VAC/TOXOID 06/14 CPT-55356 Flu 3 yrs and older CPT-59958 Arthrocentesis Small Joint or Bursa CPT-04679 Hep C Ab CPT-28260 Hep B Surf AG HBsAg CPT-17057 Hepatitic Function Panel 201 09/02/03 CPT-68762 Venipuncture CPT II 1000F #114: Tobacco use assessed 2 CPT II 1034F #114: Current tobacco smoker CPT-89753 CMP CPT-78328 Lipid Panel CPT-60497 CBC with diff CPT-44652 TSH reflex to free T-4 09/28 CPT-98191 Vitamin D 25 Hydroxy ORTHO COMMON Orthopaedic Referral [facility] 2 CPT-G8447 Encounter documented using a certified EH R [facility] Referral [facility] EX TEST ECHO [facility] Exercise Testing w Exercise Echo 05/31/13 Vital Signs Date Name Value Unit Description BMI (Body Mass Index) 36.47 kg/m2 Bod y Mass Index (Ratio) Body Temperature 98.3 [degF] temperat ure E&M Body Temperature 36.83 Sydnie temperat ure in centigrade E&M BP Diastolic 79 mm[Hg] blood pressu re, diastolic BP Systolic 122 mm[Hg] blood pressur e, systolic BSA (Body Surface Area) 2.23 b carmela surface area Heart Rate 92 /min pulse rate Weight Measured 105.45 kg weight in kilograms E&M Weight Measured 232 [lb_av] weight E& M Weight Measured 232 [lb_av] weight E& M Height 170.18 cm height in cent imeters E&M Height 67 [in_us] height E&M Immunizations Vaccine Administration Date Standard Description CVX Co de Dose flu vax#1 88 Unknown flu vax#1 141 Unknown td#1 [id number] 139 Unknown Advance Directives No information available.
--- OUTSIDE RECORDS SUMMARY | 2025-03-01 09:57 | XMS_ITS | Clinical Summary ---
Author Organization Healthcare Address [address] [place] [address] Care Team Providers Care Geosciences Professor Name Role Phone Chuck Morgan MD Primary Care Provider [phone] Allergies Active Allergy Reactions Criticality Noted Date Comments Acetaminophen Nausea And Vomiting,Unknown - Patient states they do not know rxn details Low 08/31/2011 Can take Percocet Nicotine Rash Low 05/01/2013 IRRITATE SKIN Wound Dressing Adhesive Unknown - Patien t states they do not know rxn details Low 05/14/2018 Encounters Date Type Department Care Team Description 12/17/2024 11:00 AM EDT Consult [facility] Plastic & Re[facility] Surgery [address] [place] [phone] Jayjay High MD Chronic heart failure, unspecified heart failure type (CMS/HCC) (Primary Dx) 12/17/2024 Travel from Last 3 Months Family History Medical History Relation Name Comments Conversions - Other Mother [place] Heart attack Mother Conversions - Other Other 1 [place] Heart attack Other 2 Relation Name Status Comments Mother Other 1 Other 2 Social History Tobacco Use Types Packs/Day Years Used Date Smoking Tobacco: Never Comments Unknown Sex and Gender Information Value Date Recorded Sex Assigned at Not on file Legal Sex Female 6:09 PM EDT Gender Identity Not on file Sexual Orientation Not on file Last Filed Vital Signs Vital Sign Reading Time Taken Comments Blood Pressure 141/81 12/17/2024 11:24 AM EDT Pulse 89 12/17/2024 11:24 AM EDT Temperature - - Respiratory Rate 16 07/17/2018 2:36 PM EST Oxygen Saturation 95% 12/17/2024 11:24 AM EDT Inhaled Oxygen Concentration - - Weight 108 kg (238 lb 1.6 oz) 12/17/2024 11:24 A M EDT Height 167.6 cm (5' 6 ) 12/17/2024 11:24 AM EDT Body Mass Index 38.43 12/17/2024 11:24 AM EDT Plan of Treatment Health Maintenance Due Date Last Done Comments [facility]-Depression Screening 1964 [facility]-Infant/Child/Adol SDOH Screenings 1964 [facility]- SDOH Screenings 1982 [facility]-Adult SDOH Screenings 1982 [facility]-Pap Smear 1985 [facility]-Cervical Cancer Screening 1994 [facility]-HPV/Cotest 1994 CT Colonography 2009 FIT-DNA 2009 FIT 2009 FOBT 2009 Sigmoidoscopy 2009 [facility]-Pneumococcal Vaccine: 50+ Years (1 of 1 - PCV) 2014 [facility]-Zoster Vaccines (1 of 2) 2014 [facility]-DTaP,Tdap,and Td Vaccines (3 - Td or Tdap) 04/22/2023 04/22/2013, 07/28/2011 [id number] Vaccine (1 - 2023- season) 2024 [facility]-Influenza Vaccine (#1) 2025 08/06/2013, Colonoscopy 03/07/2033 03/07/2023 [facility]-Colorectal Cancer Screening 03/07/2033 [facility]-RSV Vaccine: 60+ Years or (1 - 1-dose 75+ series) 12/08/2039 [facility]-Breast Cancer Screening Discontinued 02/2023, 01/05/2023, 10/02/2019, Additional history exists HPV Vaccines Aged Out No longer eligi ble based on patient's age to complete this topic [facility]-HIB Vaccines Aged Out No longer e ligible based on patient's age to complete this topic [facility]-Hepatitis A Vaccines Aged Out No longer eligible based on patient's age to complete this topic [facility]-IPV Vaccines Aged Out No longer e ligible based on patient's age to complete this topic [facility]-Rotavirus Vaccines Aged Out No lo nger eligible based on patient's age to complete this topic Insurance [facility] MEDICAID [facility] MEDICARE Care Teams Geosciences Professor Relationship Specialty Start Date End Date Chuck Morgan MD [address] [place] [phone] PCP - General 09/16/24
--- OUTSIDE RECORDS SUMMARY | 2025-03-01 09:57 | XMS_ITS | Clinical Summary ---
Author Organization [facility] Address [address] [facility] [address] [place] [address] Phone Care Team Providers Care Handkerchief Maker Name Role Phone Quinton Arenas MD Unavailable Chuck Morgan MD Primary Care Provider [phone] Allergies Active Allergy Reactions Criticality Noted Date Comments Nicoderm Rash Low 05/01/2013 IRRITATE SKIN Acetaminophen Nausea And Vomiting Low 08/31/2011 Can take Percocet Medications Aspirin (ASPIRIN) 81 mg Take 1 Tab by mouth daily. 30 Tab 11 03/29/20 13 Active losartan (COZAAR) 25 mg Oral Tablet Take 25 mg by mouth daily. Active sacubitriL-valsart an (ENTRESTO) 24-26 mg Oral Tablet Take 1 tablet twice a day by oral route. 07/18/20 17 Active spironolactone (ALDACTONE) 50 mg Oral Tablet Aldactone 50 mg tablet Take 1 tablet twice a day by oral route. Active carvediloL (COREG) 25 mg Oral Tablet Take 1 tablet twice a day by oral route. Active sertraline (ZOLOFT) 50 mg Oral TabletIndications: Other chest pain,SOB (shortness of breath) TAKE 1 TAB BY MOUTH EVERY MORNING. 30 Tab 07/13/20 18 Active fUROsemide (LASIX) 40 mg Oral TabletIndications: Other chest pain,SOB (shortness of breath) TAKE 1 TAB BY MOUTH DAILY. 90 Tab 12/29/19 19 Active albuterol-ipratrop ium (DUO-NEB) 0.5 mg-3 mg(2.5 mg base)/3 mL Inhl Solution for Nebulization INHALE CONTENTS OF 1 VIAL (3 ML) BY NEBULIZATION EVERY 6 HOURS NEEDED FOR SHORTNESS OF BREATH. 180 mL 5 01/06/20 22 Active pantoprazole (PROTONIX) 40 mg Oral Tablet, Delayed Release (E.C.) Take 1 Tablet by mouth 2 times daily. 60 Tablet 11 01/04/20 23 Active torsemide (DEMADEX) 100 mg Oral Tablet 02/20/20 23 Active FARXIGA 10 mg Oral Tablet TAKE 1 TABLET BY MOUTH EVERY DAY 90 Tablet 06/30/20 23 Active metFORMIN (GLUCOPHAGE) 850 mg Oral Tablet TAKE 1 TABLET BY MOUTH TWICE A DAY WITH MEALS 180 Tablet 09/08/19 24 Active albuterol (PROVENTIL HFA;VENTOLIN HFA) 90 mcg/actuation Inhl HFA Aerosol InhalerIndications :Chest pain,SOB (shortness of breath) INHALE 2 PUFFS INTO THE LUNGS EVERY 6 HOURS NEEDED. 18 Each 2 12/08/19 24 Active ONETOUCH ULTRA TEST Misc Strip USE DIRECTED ONCE DAILY 100 Strip 11 03/04/20 24 Active atorvastatin (LIPITOR) 20 mg Oral TabletIndications: Type 2 diabetes mellitus with hyperlipidemia (HCC) TAKE 1 TABLET BY MOUTH EVERY DAY 90 Tablet 3 04/09/20 24 Active azithromycin (ZITHROMAX) 250 mg Oral TabletIndications: Acute bacterial sinusitis Take 2 tablets (500 mg) on Day 1, followed by 1 tablet (250 mg) once daily on Days 2 through 5. 6 Tablet 05/23/20 24 Active glimepiride (AMARYL) 2 mg Oral TabletIndications: Type 2 diabetes mellitus with hyperlipidemia (HCC) Take 1 Tablet by mouth every morning. 90 Tablet 3 09/05/19 25 Active Blood-Glucose Meter (ONETOUCH VERIO REFLECT METER) [facility] 1 Each 2 09/05/19 25 Active Lancets Misc Misc Use as directed to test blood sugar once daily 100 Each 2 09/05/19 25 Active Blood Sugar Diagnostic Misc Strip Use as directed once daily 100 Each 11 09/10/19 25 Active oxyCODONE-acetamin ophen (PERCOCET) 10-325 mg Oral TabletIndications: Chronic bilateral low back pain without sciatica Take 1 Tablet by mouth every 4 hours as needed for Chronic Pain (G89.29) for up to 30 days. 120 Tablet 02/04/20 25 025 Active tirzepatide (MOUNJARO) 7.5 mg/0.5 mL SubQ Pen Injector Inject 7.5 mg under the skin once a week for 30 days. 2 mL 02/27/20 25 025 Active sucralfate (CARAFATE) 100 mg/mL Oral SuspensionIndicati ons:Gastroesophage al reflux disease without esophagitis TAKE 10 ML BY MOUTH 3 TIMES DAILY (BEFORE MEALS). 420 mL 6 02/28/20 25 Active sulfamethoxazole-t rimethoprim (BACTRIM DS) 800-160 mg Oral Tablet Take 1 Tablet by mouth every 12 hours for 10 days. 20 Tablet 02/07/20 25 025 Active Problems Patient Care Coordination No te Formatting of this note migh t be different from the original. 08/06/2021 Problem Noted Date Diagnosed Date Coronary atherosclerosis 01/06/2025 Abnormal findings on diagnos tic imaging of heart and coronary circulation 01/06/2025 CHF (congestive heart failure) 08/31/2023 Assessment & Plan (09/05/2024 4:21 PM EST): Compensated, no acute problems. Assessment & Plan (08/31/2023 4:58 PM EST): On julisa aaronrudi. HHD (hypertensive heart disease) 08/31/2023 HLD (hyperlipidemia) 08/31/2023 Personal history of colonic polyps 01/03/2023 Assessment & Plan (01/03/2023 11:41 AM EDT): She had 6 tubular adenomas removed in 2016. We will order colonoscopy. Chronic low back pain 04/22/2022 Overview (08/31/2023): On chronic narcotics through Dr. Vieyra's office until they were closed down. Continues on percocet QID CSA 08/06/2021 Assessment & Plan (01/06/2025 11:52 AM EDT): As per above. CSA up to date Last resulted compliance panel date: 12/22/2023 Needs updated compliance panel next in-person visit. Assessment & Plan (09/05/2024 4:21 PM EST): Orders: AMB REFERRAL TO PLASTIC SURGERY Assessment & Plan (05/23/2024 4:26 PM EDT): Stable on current medications Continue same Last resulted compliance panel date: 12/22/2023 Assessment & Plan (12/19/2023 4:30 PM EDT): Check UDS today. CSA updated. No concerns. Assessment & Plan (08/31/2023 5:01 PM EST): Last resulted compliance panel date: 12/08/2022 Up to date on HB-1 requirements. Assessment & Plan (04/21/2023 3:21 PM EDT): Goals: - maintain lowest amount of pain medication to manage ADLs comfortably Assessment & Plan (06/30/2022 4:42 PM EST): Goals:- maintain lowest amount of pain medication to manage ADLs comfortably State Prescription Drug Monitoring Program (i.e APARNA, INSPECT, OARS):- report reviewed in the past year Urine Drug Screen: - urine drug screen completed in the last year Controlled Substatnce Contract: - completed and on file Type 2 diabetes mellitus with hyperlipidemia 01/2022 Assessment & Plan (09/05/2024 4:21 PM EST): Goal A1C: < 6.5 and TIR >70% - Last A1c - 8.4 - 12/06/2022 - not at goal Compliance: - compliant with diet and medications Home Glucose Monitoring: - none Retinopathy Screening: - patient has no know retinopathy and was reminded to complete a retinal exam every 2 years Nephropathy Assessment: - microalbumin screening completed in the past 12 months Foot Assessment: - no ulcers or pre-ulcers Diet Advice: - discussed improving diet by reducing carbohydrates at today's visit Statin Therapy: - currently on a statin Medication Management: - medication management decisions took place at today's visit (see orders) Orders: glimepiride (AMARYL) 2 mg Oral Tablet; Take 1 Tablet by mouth every morning. Assessment & Plan (08/31/2023 5:02 PM EST): Goal A1C: < 7.0 and TIR >70% - Last A1c - 8.4 - 12/06/2022 - not at goal Compliance: - compliant with diet and medications Home Glucose Monitoring: - none Retinopathy Screening: Retinopathy Not Present - Last Eye Exam - 12/06/2022 - patient reminded to complete a retinal exam annually Wants to see about getting diabetic shoes. Discussed today. Feet examined. Nephropathy Assessment: - microalbumin screening completed in the past 12 months Foot Assessment: Last Foot Exam Date - 04/21/2023 - no ulcers or pre-ulcers Diet Advice: - discussed improving diet by reducing carbohydrates at today's visit ASA Therapy: - patient currently on aspirin Statin Therapy: - currently on a statin Medication Management: - medication management decisions took place at today's visit (see orders) Needs updated bloodwork. Ordered. In office too late in day to have done today. Assessment & Plan (12/06/2022 10:52 AM EDT): Goal A1C: < 7.0 - Last A1c - 8.7 - 04/22/2022 - not at goal Compliance: - compliant with diet and medications Retinopathy Screening: No retinopathy screening found - patient reminded to follow up with inspector eyeglass annually Nephropathy Assessment: - microalbumin screening completed in the past 12 months Foot Assessment: Last Foot Exam Date - 04/22/2022 - a foot exam was completed today Diet Advice: - discussed improving diet by reducing carbohydrates at today's visit ASA Therapy: - patient currently on aspirin Statin Therapy: - currently on a statin Medication Management: - medication management decisions took place at today's visit (see orders) Assessment & Plan (04/22/2022 3:29 PM EDT): blood sugars 200's. will recheck labs today. consider change in medication if uncontrolled. Having some diarrhea from the metformin (manageable) Not on statin - has been prescribed this twice before but she stopped taking it. Seems unclear on why she should be taking it (explained secondary prevention today). Assessment & Plan (02/15/2022 7:33 AM EDT): Lab Results Component Value Date HGBA1C 7.9 (H) 10/14/2021 Improved blood sugar control on insulin. Reviewed current regimen. Reviewed BS results. Continue same and recheck A1c in 6-8 weeks on therapy Assessment & Plan (01/04/2022 4:00 PM EDT): New diagnosis. A1c 7.9. Start trial of diet/exercise and metformin. Did discuss GLP-1 inhibitors if this is not effective given dual benefits of blood sugar control and weight loss. She has glucometer and is comfortable testing - will test QD Severe obesity (BMI 35.0-39.9) with comorbidity 09/15/2021 Assessment & Plan (09/05/2024 4:21 PM EST): - continue to work on weight loss. Assessment & Plan (08/31/2023 4:57 PM EST): Goals: - lose 10 pounds in 3 months (4 pounds the first month and 3 pounds the next two months) Advice: - exercise 30 minutes daily - low carb diet Medication Management: - medication management decisions took place at today's visit (see orders) COPD, mild 05/10/2019 Overview (08/31/2023): Duo-nebs daily Albuterol prn. Assessment & Plan (09/05/2024 4:21 PM EST): - co-managed with Pulmonary and advised to follow-up as directed Assessment & Plan (08/31/2023 4:57 PM EST): Avoid cigarettes, continue current therapy. Sees Dr. Orellana, pulmonary. Assessment & Plan (01/04/2022 4:01 PM EDT): Stable, no new issues or problems. Assessment & Plan (06/23/2020 9:26 AM EST): Stable, non smoker. Assessment & Plan (05/10/2019 10:32 AM EDT): Currently not able to get Albuterol MDI. States insurance is not paying for it. Will discuss with pharmacy. S/P cardiac pacemaker procedure 11/10/2017 Overview (11/10/2017): + defibrillator Assessment & Plan (09/05/2024 4:21 PM EST): Orders: AMB REFERRAL TO PLASTIC SURGERY Cardiomyopathy 03/09/2017 Overview (05/18/2017): EF 25-30% per angiogram/Dr. Luna. Mild concentric LVH. Left Ventricle Global hypokinesis Elevated LVEDP Assessment & Plan (08/31/2023 4:57 PM EST): Scheduled for angiogram 09/07/2023 due to abnormal stress test. Assessment & Plan (06/23/2020 9:26 AM EST): Stable, no evidence of decompensation. Tolerating well. Sees cardiology in [facility]. Assessment & Plan (05/10/2019 10:32 AM EDT): Stable, no acute findings/concerns. Follows with Dr. Luna in [place]. Tobacco abuse 02/26/2016 Gastroesophageal reflux disease without esophagi tis 02/26/2016 Essential hypertension 02/26/2016 Assessment & Plan (08/31/2023 5:00 PM EST): Goal BP: <140/90 in office and <135/85 at home - at goal Compliance: - compliant with medications Home Blood Pressure Monitoring: - continue home BP monitoring as previous and bring readings to each office visit Advice: - continue a low salt diet and remain physically active Medication Management: - medication management decisions took place at today's visit (see orders) Chronic ischemic heart disease, unspecified 04/01 Resolved Problems Problem Noted Date Diagnosed Date Resolved Date Lateral malleolar fracture 08/31/2023 0 01/06/2025 Chest pain 02/26/2016 08/29/2016 Encounters Date Type Department Care Team Description 02/27/[address] [place] [phone] Chuck Morgan MD Refill (sucralfate ) 02/26/[address] [place] [phone] Chuck Morgan MD Refill (Mounjaro ) 02/06/[address] [place] [phone] Chuck Morgan MD Symptoms (Only Use If Pt Pushes Back On Scheduling A Visit) (Pt called asking for abx to be called in without her having to come in. Please advise.) 02/03/2025 Refill [facility] [address] [place] [phone] Chuck Morgan MD Refill ( Disp Refills Start End /oxyCODONE-acetaminoph en (PERCOCET) 10-325 mg Oral Tablet 120 Tablet 0 01/06/2025 02/05/2025 /Sig - Route: Take 1 Tablet by mouth every 4 hours as needed for //) 01/29/[address] [place] [phone] Chuck Morgan MD Medication Management (Mounjaro ) 01/28/2025 Patient Outreach [facility] [address] [place] [id number] Chuck Morgan MD Central Order Completion Outreach (LDCT) 01/06/2025 2:30 PM EDT Telemedicine [address] [place] [phone] Chuck Morgan MD Chronic bilateral low back pain without sciatica (Primary Dx); Type 2 diabetes mellitus with hyperlipidemia (HCC) 01/06/2025 Telephone [facility] [address] [place], [place] [address] Chuck Morgan MD Relaying Information (VV for today ) 01/03/2025 Orders Only [facility] [address] [place] [phone] Nam Morgan MD Chronic bilateral low back pain without sciatica (Primary Dx) 01/03/2025 Telephone SE[facility] [address] [place] [phone] Chuck Morgan MD Refill (Percocet) 12/03/[address] [place] [phone] Chuck Morgan MD Refill (Oxycodone); Patient Returning Call (Checking on status of refill ) from Last 3 Months Surgical History Surgery Date Site/Laterality Comments HYSTERECTOMY, TOTAL SECTION x3 DILATION AND CURETTAGE OF UTERUS TUBAL LIGATION CHOLECYSTECTOMY, LAPAROSCOPIC 08/20/2013 N/A LAPAROSCOPIC CHOLECYSTECTOMY; Surgeon: Elisabet Feng MD; Location: [facility] MAIN OR; Service: General Medical History Medical History Date Comments Asthma Edema hands COPD (chronic obstructive pulmonary disease) (HC C) WHITLOCK (dyspnea on exertion) Unspecified sleep apnea has not been using machine CAD (coronary artery disease) Carpal tunnel syndrome, bilateral Osteoarthritis Heartburn Diaphragmatic hernia without mention of obstruction or gangrene Depression Family History Medical History Relation Name Comments Anesth Problems Neg Hx Social History Tobacco Use Types Packs/Day Years Used Date Smoking Tobacco: Former Cigarettes 0.5 41 0 02/26/1976 - 03/07/2017 Smokeless Tobacco: Never Tobacco Cessation:Counseling Given: Not Answered Comments: working on quitting Alcohol Use Standard Drinks/Week Comments No 0 (1 standard drink = 0.6 oz pur e alcohol) PHQ-2 Answer Date Recorded PHQ-2 Total Score 0 09/05/2024 Comments No Sex and Gender Information Value Date Recorded Sex Assigned at Not on file Legal Sex Female 7:08 PM EDT Gender Identity Not on file Sexual Orientation Not on file Obstetrics History Last Filed Vital Signs Vital Sign Reading Time Taken Comments Blood Pressure 134/76 09/05/2024 4:07 PM EST Pulse 88 09/05/2024 4:07 PM EST Temperature 36.7 C (98 F) 09/05/2024 4:07 PM EST Respiratory Rate 18 09/05/2024 4:07 PM EST Oxygen Saturation 97% 09/05/2024 4:07 PM EST Inhaled Oxygen Concentration - - Weight 108 kg (238 lb) 09/05/2024 4:07 PM EST Height 167.6 cm (5' 6 ) 09/05/2024 4:07 PM EST Body Mass Index 38.41 09/05/2024 4:07 PM EST Plan of Treatment Health Maintenance Due Date Last Done Comments Pneumococcal Vaccine 50+ (1 of 2 - PCV) 12/08/1983 Cologuard 2009 FIT 2009 Sigmoidoscopy 2009 Virtual Colonography 2009 Zoster (1 of 2) 2014 DTaP/TDaP/Td (3 - Td or Tdap) 04/22/2023 04/22/2013, 07/28/2011 Hemoglobin A1c 06/08/2023 12/06/2022, 05/0 03/2023, 04/22/2022, Additional history exists Lipids 2023 12/06/2022, 05/0 03/2023, 10/14/2021, Additional history exists Colon Cancer Screening 03/06/2024 Colonoscopy 03/06/2024 03/07/2023, 12/16/2015 COVID-19 Vaccine ( season) 2024 Low Dose Lung Cancer Screening 06/28/2024 06/28/2023 Annual Wellness Exam 08/31/2024 08/31/2023, 05/10/2019, 06/09/2016 Kidney Health: eGFR 09/15/2024 09/15/2023, 12/06/2022, 04/22/2022, Additional history exists RSV or 60+ (1 - Risk 60-74 years 1-dose series) 2024 Kidney Health: uACR 12/18/2024 12/19/2023, 12/06/2022, 12/06/2022, Additional history exists Breast Cancer Screening 01/05/2025 01/06/20 23, 10/02/2019, 10/10/2016, Additional history exists Influenza Vaccine (#1) 2025 6 (Declined), 08/06/2013, 06/14/2012 Diabetic Eye Exam 05/06/2026 05/06/2024, 12/06/2022 Hepatitis C Screening Completed 01/16/2019, 012 Hepatitis B Vaccine Aged Out No longe r eligible based on patient's age to complete this topic Meningococcal B Vaccine Aged Out No l onger eligible based on patient's age to complete this topic Goals Goal Patient Goal Type Associated Problems [...] 11:01 AM EDT) No Chuck Morgan MD Procedures Procedure Name Priority Date/Time Associated Diagnosis Comments HM DIABETES EYE EXAM Routine 05/06/2024 7:04 AM EDT MICROALBUMIN/CREATI NINE RATIO URINE Routine 12/19/2023 4:24 PM EDT Type 2 diabetes mellitus with hyperlipidemia (HCC) BASIC METABOLIC PANEL Routine 09/15/2023 CT LUNG CANCER SCREENING LOW DOSE Routine 06/28/2023 4:49 PM EST Cigarette smoker COLONOSCOPY Routine 03/07/2023 3:12 PM EDT Personal history of colonic polyps MM MAMMO DIGITAL JEOVANY DIAGN BILAT Routine 01/05/2023 10:28 AM EDT Breast pain LIPID SCREEN Routine 12/06/2022 11:01 AM EDT Essential hypertension HEMOGLOBIN A1C Routine 12/06/2022 11:01 AM EDT Type 2 diabetes mellitus with hyperlipidemia (HCC) ACUTE HEPATITIS PANEL Routine 01/16/2019 3:31 PM EDT Encounter for other specified special examinations Exposure to hepatitis A Exposure to hepatitis from Last 3 Months or Most Recently Relevant to Health Maintenance Results * DIABETES EYE EXAM (05/06/2024 7:04 AM EDT) Left Diabetic Retinopathy Not Present Not Present Present/Not Present SEP OFFICE Right Diabetic Retinopathy Not Present Not Present Present/Not Present SEP OFFICE Historical Provider HEALTH MAINTENANCE Edited Re sult - Final Performing Organization Address City/[facility]/ZIP Co de Phone Number SEP OFFICE * MICROALBUMIN/CREATININE RATIO URINE (12/19/2023 4:24 PM EDT) Urine Microalb <12.0 mg/L 12/20/2023 6:51 PM EDT PREFERRED LAB [facility] Urine Creatinine 245.2 mg/dL 12/20/19 24 6:51 PM EDT PREFERRED [facility] Ur Microalb/Creat 024 6:51 PM EDT PREFERRED [facility] Comment: Because the albumin level is below the level of detection in this urine specimen, the laboratory is unable to calculate a reliable albumin/creatinine ratio. Microalbuminuria is unlikely if the urine albumin concentration is less than 20- 30 mg/L in a random specimen. Urine URINE SPECIMEN COLLECTION / Unknown 12/19/2023 4:24 PM EDT 12/19/2023 4:24 PM EDT Chuck Morgan MD URINE ORDERABLES Final Result PREFERRED [facility] [address] [facility] , [place] [address] * BASIC METABOLIC PANEL (09/15/2023) Sodium 138 137 - 147 MMOL/L SEP OFFICE Potassium 4.7 3.4 - 5.3 MMOL/L SEP OFFICE Chloride 108 99 - 108 MMOL/L SEP OFFICE CO2 29 MMOL/L SEP OFFICE Anion Gap 5.7 MMOL/L SEP OFFICE BUN 16 4 - 21 MG/DL SEP OFFICE Creatinine 0.6 0.5 - 1.1 MG/DL SEP OFFICE GFR Afr Am 124 SEP OFFICE Glucose 145 60 - 200 MG/DL SEP OFFICE Calcium 8.70 8.70 - 10.70 MG/DL SEP OFFICE Blood VENOUS BLOOD / Unknown 09/15/2023 us Historical Provider CHEMISTRY ORDERABLES Final R esult SEP OFFICE * CT LUNG CANCER SCREENING LOW DOSE (06/28/2023 4:49 PM EST) Anatomical Region Laterality Modality Lung Computed Tomogra phy 06/28/2023 4:49 PM EST Impressions 06/28/2023 8:30 PM EST Unremarkable low-dose screening chest CT. RECOMMENDATION: Low Dose CT - 1 Yr A summary letter communicating these results will be mailed to the patient's address of record. - Note: Radiology results need to be interpreted within a comprehensive clinical context. If you have questions about the radiology report, please contact the office of the ordering clinician. [email or web address] Narrative 06/28/2023 8:[address] LUNG CANCER SCREENING LOW DOSE 06/28/2023 4:49 PM CLINICAL HISTORY: Asymptomatic patient meeting NCCN high risk criteria for lung screening. F17.210-Nicotine dependence, cigarettes, [id number]. COMPARISON: None. PROCEDURE COMMENTS: Noncontrast, low-dose, multidetector CT chest per department protocol. Interactive 3-D postprocessing done by the reviewing physician on a [employer] workstation, using Maximum intensity projections (MIPS) and [employer] LUNG CAD for improved lesion detection. Streeter images archived to PACS. Dose 1 : CT DLP Total : 104.7 mGycm DLP Spiral Max : 104.7 mGycm Maximum CTDI Vol : 2.9 mGy SSDE : 3.045 mGy SSDE Diameter : 34.4 cm SSDE Source : [employer] FINDINGS: No suspicious pulmonary nodule. No acute inflammatory process. Heart and mediastinum unremarkable. Coronary artery calcification: Mild. FOLLOW-UP CODE: Lung-RADS Category 1: Negative: No nodule or definitely benign nodule(s). Continued ANNUAL LOW-DOSE SCREENING CT SCAN ([id number]) suggested if age <78. Lung-RADS Modifier N/A: No Modifier Needed Procedure Note Pravin Stock MD - 06/28/2023 CT LUNG CANCER SCREENING LOW DOSE 06/28/2023 4:49 PM CLINICAL HISTORY: Asymptomatic patient meeting NCCN high risk criteria forlung screening. F17.210-Nicotine dependence, cigarettes,[id number]. COMPARISON: None. PROCEDURE COMMENTS: Noncontrast, low-dose, multidetector CT chest perdepartment protocol. Interactive 3-D postprocessing done by the reviewing physicianon a [employer] workstation, using Maximum intensity projections (MIPS) and [employer]G CAD for improved lesion detection. Streeter images archived to PACS. Dose 1 : CT DLP Total : 104.7 mGycm DLP Spiral Max : 104.7 mGycm Maximum CTDI Vol : 2.9 mGy SSDE : 3.045 mGy SSDE Diameter : 34.4 cm SSDE Source : [employer] FINDINGS: No suspicious pulmonary nodule. No acute inflammatory process. Heart and mediastinum unremarkable. Coronary artery calcification: Mild. FOLLOW-UP CODE: Lung-RADS Category 1: Negative: No nodule or definitelybenign nodule(s). Continued ANNUAL LOW-DOSE SCREENING CT SCAN (IMG [id number])suggested if age <78. Lung-RADS Modifier N/A: No Modifier Needed IMPRESSION: Unremarkable low-dose screening chest CT. RECOMMENDATION: Low Dose CT - 1 Yr A summary letter communicating these results will be mailed to thepatient's address of record. - Note: Radiology results need to be interpreted within a comprehensiveclinical context. If you have questions about the radiology report, please contactthe office of the ordering clinician. [email or web address] us Chuck Morgan MD IMG CT ORDERABLES Final Result * COLONOSCOPY (03/07/2023 3:12 PM EDT) Anatomical Region Laterality Modality Endoscopy Narrative 03/07/2023 3:19 PM EDT Table formatting from the original result was not included. Findings Sessile polyp in the cecum, ascending colon, transverse colon, descending colon and sigmoid colon; performed complete en bloc removal by cold forceps biopsy; completely removed en bloc by cold snare and retrieved specimen. 14 polyps, 2 polyps (cecal and one ascending) removed with cold biopsy, rest removed with cold snare Few medium, scattered diverticula of mild severity in the ascending colon, transverse colon and descending colon Two internal medium, protruding (grade 2) hemorrhoids; no bleeding was identified Recommendation Repeat colonoscopy in 1 year Follow up with me or KENIA in clinic in 3 months Indication Personal history of colonic polyps Staff Staff Role No Staff Documented Medications See Anesthesia Record. Preprocedure A history and physical has been performed, and patient medication allergies have been reviewed. The patient's tolerance of previous anesthesia has been reviewed. The risks and benefits of the procedure and the sedation options and risks were discussed with the patient. All questions were answered and informed consent obtained. ASA 3 - Patient with severe systemic disease Details of the Procedure The patient underwent monitored anesthesia care, which was administered by an anesthesia professional. The patient's blood pressure, heart rate, level of consciousness, oxygen, respirations, ECG and ETCO2 were monitored throughout the procedure. A digital rectal exam was performed. The scope was introduced through the anus and advanced to the cecum. Retroflexion was performed in the rectum. Bowel prep was adequate. The patient experienced no blood loss. The procedure was not difficult. The patient tolerated the procedure well. There were no apparent adverse events. Patient provided education and educated on specific discharge instructions. Patient educated on medications given during the procedure and new medications for discharge. Patient verbalizes understanding of discharge education. Patient stable and awaiting transport for discharge. Events Procedure Events Event Event Time ENDO SCOPE IN TIME 03/07/2023 2:37 PM ENDO SCOPE IN TIME 03/07/2023 2:51 PM ENDO CECUM REACHED 03/07/2023 2:55 PM ENDO SCOPE WITHDRAW BEGIN 03/07/2023 2:55 PM ENDO SCOPE OUT TIME 03/07/2023 3:11 PM Specimens ID Type Source Tests Collected by Time 1 : antrum Tissue Gastric TSG PATHOLOGY ORDER Wilbert Ch MD 03/07/2023 1443 2 : body Tissue Gastric TSG PATHOLOGY ORDER Wilbert Ch MD 03/07/2023 1443 3 : fundus Tissue Gastric TSG PATHOLOGY ORDER Wilbert Ch MD 03/07/2023 1443 4 : r/o barretts Tissue Gastroesophageal Junction TSG PATHOLOGY ORDER Wilbert Ch MD 03/07/2023 1443 5 : polyps Tissue Colon TSG PATHOLOGY ORDER Wilbert Ch MD 03/07/2023 1515 Tomeka Sanchez CURRICULUM FACILITATOR ENDOSCOPY PROCEDURE ORDERABLES Final Result * MM MAMMO DIGITAL JEOVANY DIAGN BILAT (01/05/2023 10:28 AM EDT) Anatomical Region Laterality Modality Breast Bilateral Mammography 01/05/2023 11:0 7 AM EDT Impressions 01/05/2023 11:07 AM EDT Negative ([id number]-1) No mammographic imaging findings to explain the patient's nonfocal bilateral breast pain. Clinical follow-up is recommended. No evidence of breast malignancy. ~ RECOMMENDATION: Manage patient on clinical basis. Routine screening mammogram in 1 year. Findings and recommendations were discussed with the patient by Dr. Zhu following the examination. ~ DISCLAIMER * Any patient with a palpable abnormality, unexplained by breast imaging, should be managed on clinical basis by the attending physician. * Breast imaging has a false negative rate of 15%. * The patient was notified by mail of the results of this examination. *The patient's information was entered into a reminder system with a target due date for the next mammogram, in accordance with the [employer] and the Society of Breast Imaging recommendations. Narrative 01/05/2023 11:07 AM EDT Procedure:MM MAMMO DIGITAL JEOVANY DIAGN BILAT ~ Reason for exam: clinical finding. Indicated problem(s): bilateral pain (global) for 9 months. N64.6-Ketgmplasy-LGI-10-CM ~ 57-year-old female presenting with intermittent nonfocal diffuse bilateral breast pain. No additional breast complaints. Specifically, no palpable abnormality. N64.7-Djojxoqohq-TWZ-10-CM ~ 57-year-old female presenting with intermittent nonfocal diffuse bilateral breast pain. No additional breast complaints. Specifically, no palpable abnormality. ~ MM MAMMO DIGITAL JEOVANY DIAGN BILAT Bilateral CC and MLO view(s) were taken. There are scattered fibroglandular densities. Prior study comparison: Compared with prior studies, the most recent being 10/02/19, 10/10/16. Incompletely imaged left-sided pacemaker generator box. ~ No suspicious mass, architectural distortion, or microcalcifications. ~ No mammographic evidence of breast malignancy. ~ Procedure Note Darien Zhu MD - 01/05/2023 Procedure:MM MAMMO DIGITAL JEOVANY DIAGN BILAT ~ Reason for exam: clinical finding. Indicated problem(s): bilateral pain (global) for 9 months. N64.8-Juyvrcdyqy-WOG-10-CM ~ 57-year-old female presenting with intermittent nonfocal diffusebilateral breast pain. No additional breast complaints. Specifically, no palpable abnormality. N64.8-Crdbndlior-ION-10-CM ~ 57-year-old female presenting with intermittent nonfocal diffusebilateral breast pain. No additional breast complaints. Specifically, no palpable abnormality. ~ MM MAMMO DIGITAL JEOVANY DIAGN BILAT Bilateral CC and MLO view(s) were taken. There are scattered fibroglandular densities. Prior study comparison: Compared with prior studies, the most recentbeing 10/02/19, 10/10/16. Incompletely imaged left-sided pacemaker generator box. ~ No suspicious mass, architectural distortion, or microcalcifications. ~ No mammographic evidence of breast malignancy. ~ IMPRESSION: Negative (TCY-Evkywkyt-5) No mammographic imaging findings to explain the patient's nonfocal bilateral breast pain. Clinical follow-up is recommended. No evidence of breast malignancy. ~ RECOMMENDATION: Manage patient on clinical basis. Routine screening mammogram in 1 year. Findings and recommendations were discussed with the patient by following the examination. ~ DISCLAIMER * Any patient with a palpable abnormality, unexplained by breast imaging, should be managed on clinical basis by the attending physician. * Breast imaging has a false negative rate of 15%. * The patient was notified by mail of the results of this examination. *The patient's information was entered into a reminder system with atarget due date for the next mammogram, in accordance with the [employer] and the Society of Breast Imaging recommendations. us Chuck Morgan MD IMG MAMMOGRAPHY ORDERABLES Fin al Result * (ABNORMAL) HEMOGLOBIN A1C (12/06/2022 11:01 AM EDT) Hgb A1C 8.4(H) 4.2 - 5.6 % 12/06/2022 4:17 PM EDT [facility] Est. Avg Glucose 194 mg/dL 12/06/2022 4:17 PM EDT [facility] Blood VENOUS BLOOD / Unknown Venipuncture / Unknown 12/06/2022 11:01 AM EDT 12/06/2022 11:01 AM EDT Narrative [facility] Payvment - 12/06/2022 4:17 PM EDT REFERENCE RANGE: Normal: 4.0-5.6% Pre-diabetes: 5.7-6.4% Provisional diagnosis of diabetes: >6.4% Hgb F>10% and anything which shortens red cell survival, such as hemolytic anemia, or unstable hemoglobin variants such as HbSS, HbSC, or HbCC, will lower the HbA1c value associated with a given level of glycemic control. us Chuck Morgan MD CHEMISTRY ORDERABLES Final Res ult [facility] [address] [place] [address] , [place] [address] * (ABNORMAL) LIPID SCREEN (12/06/2022 11:01 AM EDT) Cholesterol 136 <200 mg/dL 12/06/2022 4:24 PM EDT [facility] Comment: < 200 Desirable 200 - 239 Borderline High >= 240 High Triglyceride 213(H) <150 mg/dL 12/06/2022 4:24 PM EDT [facility] Comment: < 150 Normal 150 - 199 Borderline High 200 - 499 High >= 500 Very High HDL 36(L) >=40 mg/dL 12/06/2022 4:24 PM EDT [facility], [facility] Comment: > 60 Optimal 40 - 60 Acceptable < 40 Low LDL Calculated 65 <100 mg/dL 12/06/2022 4:24 PM EDT [facility], [facility] Comment: < 100 Optimal 100 - 129 Near or above optimal 130 - 159 Borderline High 160 - 189 High >= 190 Very High Non-HDL-C Calculated 100 <=129 mg/dL 12/06/2022 4:24 PM EDT [facility], [facility] Comment: <130 Desirable 130-159 Above Desirable 160-189 Borderline High 190-219 High >= 220 Very High Fasting Specimen? Yes None 023 4:24 PM EDT [facility] Blood VENOUS BLOOD / Unknown Venipuncture / Unknown 12/06/2022 11:01 AM EDT 12/06/2022 11:01 AM EDT us Chuck Morgan MD CHEMISTRY ORDERABLES Final Res ult Performing Organization Address City/[facility] Co de Phone Number [facility], [facility] [address] [facility], [place] [address] [facility] [address] [place] [address] * ACUTE HEPATITIS PANEL (01/16/2019 3:31 PM EDT) Hep Bs Ag Non-Reacti ve Non-Reacti ve 01/16/2019 8:20 PM EDT [facility] Hep B Core IgM Non-Reacti ve Non-Reacti ve 01/16/2019 8:20 PM EDT [facility], [facility] Hep A IgM Non-Reacti ve Non-Reacti ve 01/16/2019 8:20 PM EDT [facility] Hep C Ab Non-Reacti ve Non-Reacti ve 01/16/2019 8:20 PM EDT [facility], [facility] Blood VENOUS BLOOD / Unknown Venipuncture / Unknown 01/16/2019 3:31 PM EDT 01/16/2019 3:31 PM EDT us Tio Duncan MD CHEMISTRY ORDERABLES Final Result [facility] [address] [facility] [facility] , [place] [address] from Last 3 Months or Most Recently Relevant to Health Maintenance Insurance [employer] [place] [id number] [place] [employer] [place] [id number] [place] [employer] [place] [address] [place] Advance Directives For more information, please contact: [phone] * Full Code (Latest Code Status on File) Date Activated Date Inactivated Comments 02/27/2016 3:41 PM 02/27/2016 11:27 PM Care Teams Handkerchief Maker Relationship Specialty Start Date End Date Chuck Morgan MD [address] [place] [phone] PCP - General Internal Medicine 06/09/16 Quinton Arenas MD [address] [place] [address] [place] [phone] Physician Internal Medicine-Cardiovascular Disease 04/25/13
--- OUTSIDE RECORDS SUMMARY | 2025-03-01 09:57 | XMS_ITS | Encounter Summary ---
Author Organization [place] [address] Care Team Providers Care Mixer Crane Operator Name Role Phone Arenas, Quinton RODRIGUEZ Unavailable Chuck Morgan MD Primary Care Provider [phone] Reason for Visit * Reason Onset Date Comments Central Order Completion Outreach 01/28/2025 LDCT Encounter Details Date Type Department Care Team (Late st Contact Info) Description 01/28/2025 Patient Outreach SEP [facility] [address] [place] [address] Chuck Morgan MD [address] [place] [address] Central Order Completion Outreach (LDCT) Social History Tobacco Use Types Packs/Day Years [...] Swapna Holt, NELY documented in this encounter Progress Notes * Kenisha Cabello RN - 02/05/2025 10:57 AM EDT SEP Order Completion Outcome Tracking Contact Attempt:: Final LDCT Outcome:: Left Voicemail to Return Call at [phone] * Nica Brady, GRAYSON - 01/28/2025 10:59 AM EDT SEP Order Completion Outcome Tracking Contact Attempt:: First LDCT Outcome:: Left Voicemail to Return Call at [phone] documented in this encounter Plan of Treatment [...] on filedocumented in this encounter Care Teams Mixer Crane Operator Relationship Specialty Start Date End Date Chuck Morgan MD COUNTRY [facility] [place] [phone] PCP - General Internal Medicine 06/09/16 Quinton Arenas MD [address] [place] [address] [place] [phone] Physician Internal Medicine-Cardiovascular Disease 04/25/13 documented as of this encounter
--- OUTSIDE RECORDS SUMMARY | 2025-03-01 09:57 | XMS_ITS | Encounter Summary ---
Author Organization [place] [address] Care Team Providers Care Testing Machine Operator Name Role Phone Arenas, Quinton RODRIGUEZ Unavailable Chuck Morgan MD Primary Care Provider [phone] Reason for Visit * Reason Onset Date Comments Refill 02/26/2025 Cheri Encounter Details Date Type Department Care Team (Late st Contact Info) Description 02/26/2025 Telephone [facility] [address] [place] [address] Chuck Morgan MD [address] [place] [address] Refill (Mounjaro ) Social History Tobacco Use Types Packs/Day [...] 09/05/2024 4:05 PM Swapna Holt, NELY * Does this person have difficulty dressing or bathing? Answer Date of Assessment Author No 09/05/2024 4:05 PM Swapna Holt, NELY * Because of a physical, mental [...] Refills Last Filled Start Date End Date tirzepatide (MOUNJARO) 7.5 mg/0.5 mL SubQ Pen Injector Inject 7.5 mg under the skin once a week for 30 days. 2 mL 02/26/2025 03/28/2025 documented in this encounter Miscellaneous Notes * Telephone Encounter - Anabelle Kern MA - 02/26/2025 11:48 AM EDT Left detailed vm * Telephone Encounter - Chuck Morgan MD - 02/26/2025 11:34 AM EDT Increased to 7.5 mg dose * Telephone Encounter - Adam Mccarthy MA - 02/26/2025 10:26 AM EDT Please advise, thanks. * Telephone Encounter - Kalpesh Washington RMA - 02/26/2025 10:20 AM EDT Select the most appropriate reason for this telephone message: Medication Refill Who is requesting the refill: Patient Medication(s)Name/Dosage/Frequency: Disp Refills Start End tirzepatide (MOUNJARO) 5 mg/0.5 mL SubQ Pen Injector 2 mL 0 01/29/2025 -- Sig - Route: Inject 5 mg under the skin once a week. - Subcutaneous Sent to pharmacy as: tirzepatide 5 mg/0.5 mL subcutaneous pen injector (Mounjaro) Cosign for Ordering: Accepted by Chuck Morgan MD on 01/30/2025 7:43 AM Did patient contact the pharmacy first: No How many days left on hand: 0 Future appt date w/ prescribing provider: none Pharmacy & Location: [facility] [address] [place] [address] [[id number]] Return Method of Communication: Phone Call Additional Information: patient is asking does this dose need to be increased? Please Advise Patient, thank you. documented in this encounter Plan of Treatment [...] Diagnoses Not on filedocumented in this encounter Discontinued Medications Medication Sig Discontinue Reason Start Date End Da te tirzepatide (MOUNJARO) 5 mg/0.5 mL SubQ Pen Injector Inject 5 mg under the skin once a week. Cancelled by 01/29/2025 02/26/2025 documented as of this encounter Care Teams Testing Machine Operator Relationship Specialty Start Date End Date Chuck Morgan MD [address] [place] [address] [place] [phone] PCP - General Internal Medicine 06/09/16 Quinton Arenas MD [address] [place] [address] [place] [phone] Physician Internal Medicine-Cardiovascular Disease 04/25/13 documented as of this encounter
--- OUTSIDE RECORDS SUMMARY | 2025-03-01 09:57 | XMS_ITS | Encounter Summary ---
Author Organization [place] [address] Care Team Providers Care Hydrodynamics Teacher Name Role Phone Quinton Arenas MD Unavailable Chuck Morgan MD Primary Care Provider [phone] Encounter Details Date Type Department Care Team (Late st Contact Info) Description 01/03/2025 Orders Only [facility] [place] [address] [address] Nam Morgan MD [address] [place] [address] [place] [address] Chronic bilateral low back pain without sciatica (Primary Dx) Social History Tobacco Use Types Packs/Day Years [...] Refills Last Filled Start Date End Date oxyCODONE-acetamin ophen (PERCOCET) 10-325 mg Oral TabletIndications: Chronic bilateral low back pain without sciatica Take 1 Tablet by mouth every 4 hours as needed for Chronic Pain (G89.29) for up to 7 days. 28 Tablet 01/03/2025 5 documented in this encounter Plan of Treatment [...] bilateral low back pain without sciatica- Primary documented in this encounter Care Teams Hydrodynamics Teacher Relationship Specialty Start Date End Date Chuck Morgan MD [address] [place] [address] [place] [phone] PCP - General Internal Medicine 06/09/16 Quinton Arenas MD [address] [place] [address] [place] [phone] Physician Internal Medicine-Cardiovascular Disease 04/25/13 documented as of this encounter
--- OUTSIDE RECORDS SUMMARY | 2025-03-01 09:57 | XMS_ITS | Encounter Summary ---
Author Organization [place] [address] Care Team Providers Care Grip Boss Name Role Phone ArenasQuinton MD Unavailable Chuck Morgan MD Primary Care Provider [phone] Reason for Visit * Reason Onset Date Comments Refill 02/03/[address] End oxyCODONE-acetaminophen (PERCOCET) 10- 325 mg Oral Tablet 120 Tablet 0 01/06/2025 02/05/2025 Sig - Route: Take 1 Tablet by mouth every 4 hours as needed for Encounter Details Date Type Department Care Team (Late st Contact Info) Description 02/03/2025 Refill [facility] [address] [place] [address] Chuck Morgan MD [address] [place] [phone] Refill ( Disp Refills Start End /oxyCODONE-acetaminophen (PERCOCET) 10-325 mg Oral Tablet 120 Tablet 0 01/06/2025 02/05/2025 /Sig - Route: Take 1 Tablet by mouth every 4 hours as needed for //) Social History Tobacco Use Types Packs/Day Years [...] of Assessment Author No 09/05/2024 4:05 PM Roxann Holt CCMA * Does this person have [...] for up to 30 days. 120 Tablet 02/03/2025 documented in this encounter Miscellaneous Notes * Telephone Encounter - Roxann Sims CCMA - 02/03/2025 9:06 AM EDT Last Office Visit reviewing controlled substances: 01/06/2025 Approved Ambien, Gabapentin, Lyrica, Butalbital = must be in last 6 months. All other controlled medications = must be in last 3 months. If visit is not up to date, please call and schedule appointment. Next appointment scheduled?: No APARNA Last Reviewed by Prescriber: PDMP not electronically reviewed on this encounter. Date of last completed CSA if not included in flowsheet below: 08/06/2021 01/13/2022 4:00 PM 05/11/2022 4:00 PM 10/06/2022 9:00 AM CONTROLLED SUBSTANCE APARNA Reference Number [id number] APARNA Results as expected as expected as expected APARNA Comments done on 09/08/22 If had complete compliance panel: 12/22/2023 Last resulted compliance panel date: 12/22/2023 (If patient had partial drug screen or in-house drug screen, please document date of that below): * Telephone Encounter - Alma Beltran MA - 02/03/2025 8:54 AM EDT Select the most appropriate reason for this telephone message: Medication Refill Who is requesting the refill: Patient Medication(s)Name/Dosage/Frequency: Disp Refills Start End oxyCODONE-acetaminophen (PERCOCET) 10-325 mg Oral Tablet 120 Tablet 0 01/06/2025 02/05/2025 Sig - Route: Take 1 Tablet by mouth every 4 hours as needed for Did patient contact the pharmacy first: No How many days left on hand: 3 Future appt date w/ prescribing provider: None Pharmacy & Location: [facility]/PHARMACY [address] [place] [address] [address] [place] [address] [[id number]] Return Method of Communication: Phone Call Additional Information: N/A documented in this encounter Plan of Treatment [...] Diagnosis Chronic bilateral low back pain without sciatica documented in this encounter Discontinued Medications Medication Sig Discontinue Reason Start Date End Da te oxyCODONE-acetaminophen (PERCOCET) 10-325 mg Oral TabletIndications:Chroni c bilateral low back pain without sciatica Take 1 Tablet by mouth every 4 hours as needed for Chronic Pain (G89.29) for up to 30 days. Reorder 01/06/2025 02/03/2025 documented as of this encounter Care Teams Grip Boss Relationship Specialty Start Date End Date Chuck Morgan MD [address] [place] [address] [address] [place], [place] [phone] PCP - General Internal Medicine 06/09/16 Quinton Arenas MD [address] [place] [address] [place] [phone] Physician Internal Medicine-Cardiovascular Disease 04/25/13 documented as of this encounter
--- OUTSIDE RECORDS SUMMARY | 2025-03-01 09:57 | XMS_ITS | Encounter Summary ---
Author Organization [place] [address] Care Team Providers Care Perioperative Nurse Name Role Phone Arenas, Quinton RODRIGUEZ Unavailable Chuck Morgan MD Primary Care Provider [phone] Reason for Visit * Reason Onset Date Comments Medication Management 01/29/2025 Mounsourav Encounter Details Date Type Department Care Team (Late st Contact Info) Description 01/29/2025 Telephone [facility] [address] [place] [address] Chuck Morgan MD [address] [place] [address] Medication Management (Mounjaro ) Social History Tobacco Use Types [...] Filled Start Date End Date tirzepatide (MOUNJARO) 5 mg/0.5 mL SubQ Pen Injector Inject 5 mg under the skin once a week. 2 mL 01/29/2025 02/26/2025 documented in this encounter Miscellaneous Notes * Telephone Encounter - Anabelle Kern MA - 01/29/2025 10:58 AM EDT Next dose sent in, patient notified * Telephone Encounter - Kalpesh Washington RMA - 01/29/2025 10:51 AM EDT Select the most appropriate reason for this telephone message: Medication Management/Problem Who is calling? Patient What medication(s) do you have concerns about: tirzepatide (MOUNJARO) 2.5 mg/0.5 mL SubQ Pen Injector 2 mL 0 01/06/2025 -- Sig - Route: Inject 2.5 mg under the skin once a week. - Subcutaneous Sent to pharmacy as: tirzepatide 2.5 mg/0.5 mL subcutaneous pen injector (Mounjaro) Prescribing provider: Chuck Morgan MD What are your concerns/request: was told to call in when took last shot and needs refill at the next dose Desired outcome: Increase in dosage Last appointment date: 01/06/25 Pharmacy: [facility]/pharmacy #[id number] - [place] [id number] - [address] [place] [address] - [phone] [place] [id number] SANJIV #: [id number] Return Method of Communication: N/A Additional Information: N/A documented in this encounter Plan of Treatment Not on file documented as of this encounter Goals Goal Patient Goal Type Associated Problems Recent Progress Patient-Stated? Author Blood Pressure < 140/90 Blood Pressure 134/76(2024 4:07 PM EST) No Chuck Morgan MD Eat better, exercise, reach an ideal body weight General No Devi Frederick RMA BMI (Calculated) < 30 General 38.5(09/05/19 25 4:07 PM EST) No Chuck Morgan MD Stay Tobacco Free Lifestyle No Devi Frederick RMA HEMOGLOBIN A1C < 7.0 Result Component 8.4( 11:01 AM EDT) No Chuck Morgan MD documented as of this encounter Visit Diagnoses Diagnosis Type 2 diabetes mellitus with hyperlipidemia (HCC) documented in this encounter Discontinued Medications Medication Sig Discontinue Reason Start Date End Da te tirzepatide (MOUNJARO) 2.5 mg/0.5 mL SubQ Pen InjectorIndications:Type 2 diabetes mellitus with hyperlipidemia (HCC) Inject 2.5 mg under the skin once a week. Cancelled by 01/06/2025 01/29/2025 documented as of this encounter Care Teams Perioperative Nurse Relationship Specialty Start Date End Date Chuck Morgan MD [address] [place] [address] [place] [address] PCP - General Internal Medicine 06/09/16 Quinton Arenas MD [address] [place] [address] [place] [address] Physician Internal Medicine-Cardiovascular Disease 04/25/13 documented as of this encounter
--- OUTSIDE RECORDS SUMMARY | 2025-03-01 09:57 | XMS_ITS | Encounter Summary ---
Author Organization [facility] [place] [address] Care Team Providers Care Taxation Accountant Name Role Phone Arenas, Quinton RODRIGUEZ Unavailable Chuck Morgan MD Primary Care Provider [phone] Reason for Visit * Reason Onset Date Comments Refill 01/03/2025 Percocet Encounter Details Date Type Department Care Team (Late st Contact Info) Description 01/03/2025 Telephone [facility] [address] [place] [address] Chuck Morgan MD [address] [place] [address] Refill (Percocet) Social History Tobacco Use Types Packs/Day Years [...] 09/05/2024 4:05 PM Swapna Holt, THAOA * Is the person blind or does he/she have serious difficulty seeing even when wearing glasses? Answer Date of Assessment Author No 09/05/2024 4:05 PM Swapna Holt, CCMA * Does this person have serious difficulty walking or climbing stairs? Answer Date of Assessment Author No 09/05/2024 4:05 PM Swapna Holt, CCMA * Does this person have difficulty [...] Swapna Holt, NELY documented in this encounter Miscellaneous Notes * Telephone Encounter - Brittney Gallego RMA - 01/03/2025 9:17 AM EDT Pt notified * Telephone Encounter - Nam Morgan MD - 01/03/2025 9:14 AM EDT 7 day refill sent, needs to keep her visit for next week * Telephone Encounter - Brittney Gallego RMA - 01/03/2025 9:08 AM EDT Last Office Visit reviewing controlled substances: 09/05/24 Approved Ambien, Gabapentin, Lyrica, Butalbital = must be in last 6 months. All other controlled medications = must be in last 3 months. If visit is not up to date, please call and schedule appointment. Next appointment scheduled?: Yes APARNA Last Reviewed by Prescriber: PDMP not electronically reviewed on this encounter. Date of last completed CSA if not included in flowsheet below: 08/06/21 01/13/2022 4:00 PM 05/11/2022 4:00 PM 10/06/2022 9:00 AM CONTROLLED SUBSTANCE [facility] Reference Number [id number] APARNA Results as expected as expected as expected APARNA Comments done on 09/08/22 If had complete compliance panel: Last resulted compliance panel date: 12/22/2023 (If patient had partial drug screen or in-house drug screen, please document date of that below): * Telephone Encounter - Cullen Nicholson - 01/03/2025 8:42 AM EDT Select the most appropriate reason for this telephone message: Medication Refill Who is requesting the refill: Patient Medication(s)Name/Dosage/Frequency: Disp Refills Start End oxyCODONE-acetaminophen (PERCOCET) 10-325 mg Oral Tablet 120 Tablet 0 12/03/2024 01/02/2025 Sig - Route: Take 1 Tablet by mouth every 6 hours as needed for Chronic Pain (G89.29) for up to 30 days. - Oral Sent to pharmacy as: oxyCODONE-acetaminophen 10 mg-325 mg tablet (PERCOCET) Earliest Fill Date: 12/03/2024 E-Prescribing Status: Receipt confirmed by pharmacy (12/03/2024 12:23 PM EDT) Did patient contact the pharmacy first: No How many days left on hand: out Future appt date w/ prescribing provider: no Pharmacy & Location: [facility] Method of Communication: Phone Call Additional Information: Not able to pend Rx. documented in this encounter Plan of Treatment [...] on filedocumented in this encounter Care Teams Taxation Accountant Relationship Specialty Start Date End Date Chuck Morgan MD [address] [place] [address] [place] [phone] PCP - General Internal Medicine 06/09/16 Quinton Arenas MD [address] [place] [address] [place] [phone] Physician Internal Medicine-Cardiovascular Disease 04/25/13 documented as of this encounter
--- OUTSIDE RECORDS SUMMARY | 2025-03-01 09:57 | XMS_ITS | Encounter Summary ---
Author Organization [place] [address] Care Team Providers Care Administrative Staff Supervisor Name Role Phone ArenasQuinton MD Unavailable Chuck Morgan MD Primary Care Provider [phone] Reason for Visit * Reason Onset Date Comments Relaying Information 01/06/2025 VV for toda y Encounter Details Date Type Department Care Team (Late st Contact Info) Description 01/06/2025 Telephone [facility] [address] [place] [phone] Chuck Morgan MD [address] [facility] [place] [phone] Relaying Information (VV for today ) Social History Tobacco Use Types Packs/Day [...] 09/05/2024 4:05 PM Swapna Holt, CCMA * Is the person blind or [...] 09/05/2024 4:05 PM Swapna Holt, CCMA * Because of a physical, mental or emotional condition, does this person have difficulty doing errands alone such as visiting a doctor's office or shopping? Answer Date of Assessment Author No 09/05/2024 4:05 PM Swapna Holt, CCMA documented as of this encounter Mental Status * Because of a physical, mental or emotional condition, does this person have serious difficulty concentrating, remembering or making decisions? Answer Entry Date Author No 09/05/2024 4:05 PM Swapna Holt, CCMA documented in this encounter Miscellaneous Notes * Telephone Encounter - Anabelle Kern MA - 01/06/2025 1:07 PM EDT fyi * Telephone Encounter - Alma Beltran MA - 01/06/2025 12:59 PM EDT Select the most appropriate reason for this telephone message: Relaying Information Relaying Information Who is Calling: Patient What information is the caller relaying: Patient states she never received link to log onto VV. Phone number listed on appt note was confirmed. Further follow-up needed? Yes Return Method of Communication:Phone call Additional Information:Attempted to warm transfer, and patient disconnected from call. documented in this encounter Plan of Treatment [...] on filedocumented in this encounter Care Teams Administrative Staff Supervisor Relationship Specialty Start Date End Date Chuck Morgan MD [employer] [facility] [place] [phone] PCP - General Internal Medicine 06/09/16 Quinton Arenas MD [address] [place] [address] DR [place], [place] [phone] Physician Internal Medicine-Cardiovascular Disease 04/25/13 documented as of this encounter
[2025-03-01 10:00] LABS: Microscopic, Urine URINE MICROSCOPIC (MICROSCOPIC)
--- NOTE | 2025-03-01 10:13 | ED_ITS ---
Discharge Plan Disposition Patient Disposition: Home, Self-Care Prescriptions Prescriptions: No Action albuterol sulfate 2.5 mg /3 mL (0.083 %) solution for nebulization 2.5 mg INHALATION Q20M aspirin [Adult Low Dose Aspirin] 81 mg tablet,delayed release (DR/EC) 81 mg PO QDAY sertraline 50 mg tablet 50 mg PO QDAY oxycodone-acetaminophen 10-325 mg tablet 1 tab PO QID carvedilol 25 mg tablet 50 mg PO BID Qty: 270 5RF Rybelsus 7 mg tablet 7 mg PO ONCE Patient Comments: TAKE 1 TABLET BY MOUTH EVERY DAY (DME) blood-glucose meter [OneTouch Verio Reflect Meter] Misc See Rx Instructions .ROUTE .MEDSUPPLY Qty: 1 Patient Comments: USE DIRECTED Rx Instructions: As directed (DME) OneTouch Verio test strips Strip See Rx Instructions .ROUTE .MEDSUPPLY Qty: 10 Patient Comments: USE DIRECTED ONCE DAILY Rx Instructions: As directed (DME) lancets [OneTouch Delica Plus Lancet] 33 gauge misc See Rx Instructions .ROUTE .MEDSUPPLY Qty: 100 Patient Comments: USE DIRECTED TO TEST BLOOD SUGAR ONCE DAILY Rx Instructions: As directed atorvastatin [Lipitor] 20 mg tablet 20 mg PO DAILY Qty: 30 5RF ipratropium-albuterol 0.5 mg-3 mg(2.5 mg base)/3 mL solution for nebulization 1 - 2 ml IH DAILY Patient Comments: INHALE CONTENTS OF 1 VIAL (3 ML) BY NEBULIZATION EVERY 6 HOURS NEEDED FOR SHORTNESS OF BREATH. spironolactone [Aldactone] 50 mg tablet 50 mg PO BID Qty: 180 3RF metolazone 2.5 mg tablet 2.5 mg PO DAILY Qty: 90 1RF Entresto 49-51 mg tablet See Rx Instructions .ROUTE .COMPLEX Qty: 180 3RF Dose Instruction: TAKE 1 TABLET BY MOUTH TWICE A DAY Rx Instructions: TAKE 1 TABLET BY MOUTH TWICE A DAY torsemide 100 mg tablet 50 mg PO DAILY Qty: 90 1RF cefdinir 300 mg capsule 300 mg PO BID 10 Days Qty: 20 0RF Referrals Follow up/Referrals: Chuck Morgan [Primary Care Provider, Medical] - See instructions Activity Restrictions/Add. Instructions Additional Instructions/Restrictions: Your strep swab was negative. You likely have a viral infection of the throat causing your symptoms. You can take Tylenol, ibuprofen and oiop-xsl-[id number] medications to help with your pain. Follow with your primary care physician if symptoms do not improve. If you develop any new or worsening symptoms, or if you become concerned for your health for any reason, return to the emergency department for evaluation Clinical Impressions Clinical Impression: Acute viral pharyngitis Print Language Print Language: [place] Citizen Discharge ED Provider: Jag Gupta General Adult HPI General Chief complaint: Upper Respiratory Infection Stated complaint: ear/throat pain Time Seen by Provider: 03/01/25 09:53 Mode of Arrival: Ambulatory Source of Information: Patient Description of Symptoms (Recalled from ER Triage Doc. by RN): pt is here for left ear pain that feels like its going into the left side of her throat. also having some urinary symptoms she would like checked as well. History of Present Illness HPI narrative: Shawnee Ko is a 59-year-old female with a history of AICD, hyperlipidemia who presents to the emergency department for complaints of left ear pain and throat soreness. Patient states that she has been swimming recently and does not know if she has swimmer's ear. She states over the last day or 2, her left ear has been painful. She states that it is painful to swallow. She denies any shortness of breath and states that she is swallowing okay and is just painful to do so. She denies any fevers. She denies any known sick contacts. She also states that she is having some left-sided flank pain that radiates to her abdomen and believes that she may have a urinary tract infection. She denies any dysuria or hematuria. Related Data Home Medications ?Medication ?Instructions ?Recorded ?Confirmed albuterol sulfate 2.5 mg/3 mL 2.5 mg inhalation Q20M l ungs 07/31/17 11/20/24 (0.083 %) solution for nebulization aspirin 81 mg tablet,delayed 81 mg PO QDAY Blood thinn er 07/31/17 11/20/24 release (Adult Low Dose Aspirin) sertraline 50 mg tablet 50 mg PO QDAY Depression 08/1711/20/24 oxycodone-acetaminophen 10 mg-325 1 tab PO QID pain 11/20/24 mg tablet ipratropium 0.5 mg-albuterol 3 mg 1 - 2 ml inhalation DAILY 01/25/22 11/20/24 (2.5 mg base)/3 mL nebulization soln semaglutide 7 mg tablet (Rybelsus) 7 mg PO ONCE 11/20/24 blood sugar diagnostic (OneTouch #10 ea 11/20/2411/20 Verio test strips) blood-glucose meter (OneTouch #1 ea 11/20/24 11/20/24 Verio Reflect Meter) lancets 33 gauge (OneTouch Delica #100 ea 11/20/24 Plus Lancet) Previous Rx's ?Medication ?Instructions ?Recorded spironolactone 50 mg tablet 50 mg PO BID Fluid #180 ta bs 03/30/21 (Aldactone) atorvastatin 20 mg tablet (Lipitor) 20 mg PO DAILY #30 tabs 05/25/21 carvedilol 25 mg tablet 50 mg (2 x 25 mg) PO BID #27 0 tabs 09/21/23 metolazone 2.5 mg tablet 2.5 mg PO DAILY #90 tabs 03/23 sacubitril 49 mg-valsartan 51 mg See Rx Instructions . Route 04/08/24 tablet (Entresto) .COMPLEX #180 tabs cefdinir 300 mg capsule 300 mg PO BID 10 days #20 ca ps 04/20/24 torsemide 100 mg tablet 50 mg (1/2 x 100 mg) PO REBEKAH Y #90 11/01/24 tabs Allergies Allergy/AdvReac Type Severity Reaction Status Date / Time No Known Allergies Allergy Verified 11/20/24 15:24 [facility] Disclaimer: The information contained in this section may have been updated after the patient was seen, as this information can be updated by other users. Medical History AICD lead malfunction HFrEF (heart failure with reduced ejection fraction) Angina pectoris AICD lead displacement Abnormal findings on diagnostic imaging of heart and coronary circulation Depression Anxiety History of gastroesophageal reflux (GERD) Migraine Diabetes mellitus, type 2 COPD (chronic obstructive pulmonary disease) Asthma Hyperlipidemia CAD (coronary artery disease) Surgical History History of hysterectomy History of section Social History Smoking Status: Current every day smoker tobacco type: smokeless tobacco second hand exposure: Yes alcohol intake: never counseling provided: none substance use type: denies use current occupational status: other Travel in the last 8 weeks?: Inside the [place] household members: none housing: house current occupational exposures/hazards: No caffeine: No Have you lived/traveled outside [place] in past 30 days?: No Contact w/someone who lives/traveled outside US past 30 days?: No Exposure to someone with infectious disease in past 14 days?: No Do you have a fever (greater than 100.4 F or 38 C)?: No Have you tested positive for COVID-19?: No Exposed to someone with COVID-19 in past 14 days?: No Do you have a sore throat?: No Do you have a cough?: No Do you have any weakness?: No Do you have any diarrhea?: No Are you experiencing any unusual bleeding?: No Do you have any muscle aches/pain?: No Do you have any abdominal pain?: No Are you experiencing loss of taste or smell?: No Other Medical History Have you received the Flu Vaccine for this season: No Have you received the Pneumonia Vaccine: No ROS Obtained: Yes Systems reviewed as appropriate & no additional complaints except as documented Physical Exam General General appearance: alert and in no apparent distress Head Head exam: atraumatic Eye Eye exam: Present normal appearance ENT ENT exam: Present normal exam, normal external ear exam and other (Left tympanic membrane is pearly [place] with normal light reflex. No erythema or bulging. External auditory canal without swelling or erythema.); Absent normal oropharynx (If you scattered erythematous lesions over the posterior oropharynx consistent with herpangina) Neck Neck exam: Present full ROM Chest Chest inspection: Present symmetric chest wall rise Respiratory Respiratory exam: Present normal lung sounds bilaterally; Absent respiratory distress Cardiovascular Cardiovascular exam: Present regular rate and normal rhythm Abdominal Exam Abdominal exam: Present soft; Absent tenderness or guarding Extremities Exam Extremities exam: Present normal inspection Back Exam Back exam: Present normal inspection Neurological Exam Neurological exam: Present alert and oriented X3 Psychiatric Psychiatric exam: Present normal affect Skin Skin exam: Present warm and dry Medical Decision Making Medical Records Screening: Per USPSTF and CDC recommendations, given the prevalence of disease in our region, it is our hospital?s policy to screen for HIV and viral Hepatitis for all patients aged 18 and over and those with ongoing risk factors. Christophe Inquiry Pt receiving controlled substance: No Vital Signs: 03/01/25 09:52 03/01/25 11:17 Temperature 98.2 F 98.2 F Temperature Source Oral Pulse Rate 88 Pulse Rate [Right] 92 H Respiratory Rate 20 16 Blood Pressure 145/87 H Blood Pressure [Left Arm] 159/85 H Blood Pressure Mean [Left Arm] 109 02 Sat by Pulse Oximetry 97 Oxygen Delivery Method Room Air Lab Data Lab Results 03/01/25 09:50: Urine Color Yellow, Urine Appearance Clear, Urine pH 6.0, Ur Specific [place] 1.020, Urine Protein Negative, Urine Glucose (UA) Negative, Urine Ketones Negative, Urine Blood 1+ A, Urine Nitrate Negative, Urine Bilirubin Negative, Urine Urobilinogen 0.2, Ur Leukocyte Esterase Negative, Urine RBC 3-5, Urine WBC None, Ur Squamous Epith Cells 3-5, Urine Bacteria 2+ 03/01/25 10:15: Group A Strep Rapid Negative Orders (Tests/Meds): ORDERS Category Date Time Status Strep Scrn Group A (Rapid) Stat Lab 03/01/25 10:15 Completed UA [Urinalysis and Microscopic] Stat Lab 03/01/25 09:50 Completed Strep Screen Confirmation Stat Micro 03/01/25 10:15 Received Urine Culture Stat Micro 03/01/25 09:50 Received Medical Decision Narrative: Shawnee Ko is a 59-year-old female with a history of AICD, hyperlipidemia who presents to the emergency department for complaints of left ear pain and throat soreness. Patient states that she has been swimming recently and does not know if she has swimmer's ear. She states over the last day or 2, her left ear has been painful. She states that it is painful to swallow. She denies any shortness of breath and states that she is swallowing okay and is just painful to do so. She denies any fevers. She denies any known sick contacts. She also states that she is having some left-sided flank pain that radiates to her abdomen and believes that she may have a urinary tract infection. She denies any dysuria or hematuria. On arrival, patient is hemodynamically stable, afebrile, no acute respiratory distress, breathing comfortably on room air with appropriate oxygen saturation. Physical exam, as stated above, revealed overall well-appearing female in no distress. Left tympanic membrane is pearly [place] with normal light reflex. It is not bulging and nonerythematous. External auditory canal is normal. Oropharyngeal exam reveals no tonsillar swelling or exudates, she does have few scattered erythematous lesions to the posterior oropharynx consistent with herpangina. Uvula is midline. Differential diagnosis includes, but is not limited to: Viral pharyngitis, strep pharyngitis, viral respiratory infection. Low concern for otitis media or otitis externa based on physical exam. Workup in the emergency department included: Rapid strep swab. Viral testing was considered, however it would not change ED management and was not pursued at this time. Patient's rapid strep swab was negative. Is felt that her symptomatology is most consistent with viral pharyngitis. She was encouraged to take Tylenol and ibuprofen as well as repw-wtc-babuosd medications to relieve her pain. This felt that her symptoms will improve over time. Uvula is midline. after the virus runs its course. She was encouraged to follow-up with her primary care physician if symptoms do not improve. Return precautions were given. All questions were answered. She demonstrated understanding and was in agreement this plan. She was then discharged from the emergency department in stable c ondition. Critical Care Critical Care Time Critical Care Time: No
[2025-03-01 10:15] LABS: Bilirubin,Urine Negative (Negative); Color,Urine YELLOW (Yellow); Glucose,Urine (UA) Negative (Negative); Ketones,Urine Negative (Negative); Leukocyte Esterase,Urine Negative (Negative); PH,Urine 6.0 (5.0-8.5); Protein,Urine Negative (Negative); Specific Gravity, Urine 1.020 (1.005-1.030); Urobilinogen,Urine 0.2 EU/dl (0.2)
[2025-03-01 10:42] LABS: Bacteria,Urine 2+ /lpf
[2025-03-01 10:57] LABS: Strep Scrn Group A (Rapid) Negative (Negative)
[2025-03-01 11:17] VITALS: BP 145/87; PULSE 88; RESP 16; TEMP 36.8; O2SAT 98
--- NOTE | 2025-03-03 09:26 | PC.NURSE ---
Urine culture results reviewed by Dr. Gupta. No new orders received at this time.
== END 2025-03-01 11:18 | disposition home or self-care (01) ==
PROVIDERS: Emergency Provider Student in an Organized Health Care Education/Training Program; PCP Pediatrics
DX: J02.9 Acute pharyngitis, unspecified (principal); E78.5 Hyperlipidemia, unspecified; F17.210 Nicotine dependence, cigarettes, uncomplicated
CPT/HCPCS: 81001; 87086; 87430; 99283